=== PATIENT | female | born 1955 | race Two or more races ===

== ENCOUNTER 2025-10-27 13:02 | Inpatient (IN) | payer MEDICARE, MEDICAID, SELFPAY ==
[2025-10-27] VITALS (8 sets, daily range): BP systolic 107–160; BP diastolic 72–90; PULSE 59–170; RESP 16–100; TEMP 36–37; O2SAT 95–99
--- NOTE | 2025-10-27 13:04 | EKG_ITS ---
[facility] Test Date: 2025-10-27 Pat Name: TAYLOR JACINTO Department: Room: - Gender: Female Placement Assistant: : 1955 Requested By: Lisette Hernández Order Number: [id number] Reading MD: Lisette Hernández Measurements Intervals [place] Rate: 137 P: CO: QRS: 1 QRSD: 92 T: 161 QT: 254 QTc: 385 Interpretive Statements ATRIAL FIBRILLATION WITH RAPID VENTRICULAR RESPONSE ST DEVIATION AND MODERATE T-WAVE ABNORMALITY, CONSIDER LATERAL ISCHEMIA [-0.1+ mV T-WAVE IN I/aVL/V5/V6] Compared to ECG 04/21/2024 08:21:55 Possible ischemia now present T-wave abnormality still present /store/S0/[id number]/ecg/[id number].pdf
--- NOTE | 2025-10-27 13:07 | XR_ITS ---
EXAMINATION: AP chest single view TECHNIQUE: AP portable semiupright chest single view Date and time: October 27, 2025, 1358 hours, comparison July 08, 2024 INDICATION: Chest pain today. FINDINGS: Mild CHF Mild enlargement cardiac contour prominent vascular congestion and perihilar edema Consider superimposed pneumonia at the lung bases IMPRESSION: Mild CHF Consider superimposed pneumonia at the lung bases
[2025-10-27] MEDS: ASPIRIN 81 MG CHEW PO (13:36)
[2025-10-27 13:57] LABS: Basophils # (Auto) 0.1 Thou/mm3 (0.0-0.2); Basophils % (Auto) 1 % (0-2.5); Eosinophils # (Auto) 0.1 Thou/mm3 (0.0-0.5); Eosinophils % (Auto) 1 % (0-10); Hematocrit 29.6 % (36.0-46.0); Hemoglobin 9.7 g/dL (12.0-16.0); Immature Granulocytes Auto 0.01 Thou/mm3 (0.00-0.00); Lymphocytes # (Auto) 3.3 Thou/mm3 (1.0-4.8); Lymphocytes % (Auto) 48 % (10-50); Mean Corpuscular HGB Conc 32.8 g/dl (31.0-37.0); Mean Corpuscular Hemoglobin 33.4 pg (25.0-35.0); Mean Corpuscular Volume 102 fL (80-100); Monocytes # (Auto) 0.3 Thou/mm3 (0.0-0.8); Monocytes % (Auto) 4 % (0-12); Neutrophils # (Auto) 3.2 Thou/mm3 (1.8-7.7); Neutrophils % (Auto) 46 % (37-80); Nucleated Red Blood Cell # 0.00 Thou/mm3 (0.00-0.00); Nucleated Red Blood Cell % 0 /100 WBC (0); Platelet Count 283 Thou/mm3 (140-440); RDW Standard Deviation 57.0 fL (36.4-46.3); Red Blood Count 2.90 Miln/mm3 (4.00-5.20); White Blood Count 6.9 Thou/mm3 (3.6-11.0)
[2025-10-27 14:03] LABS: INR 1.1 (0.9-1.3); Partial Thromboplastin Time 21.8 Seconds (22.0-36.0); Prothrombin Time 11.3 Seconds (9.0-12.2)
--- NOTE | 2025-10-27 14:17 | PD.EDCHEST ---
ED Chest Pain RME/HPI General Chief Complaint: Chest Pain Stated Complaint: CHEST PAIN Time Seen by Provider: 10/27/25 13:06 Arrival date/time: 10/27/25 13:02 Limitations: no limitations RME / HPI RME / HPI narrative: 70 year old female with history of CAD s/p multiple stents atrial fibrillation, hypertension, hypothyroidism presents to the ED BIBA from home for evaluation of left sided chest pain with radiation to the left shoulder beginning 1 hour prior to arrival. States the pain has remained constant since onset and is accompanied by feeling slightly short of breath. Denies exacerbating/relieving factors and the pain is otherwise non-exertional, non-pleuritic, or associated with PO intake. Patient reports history of multiple heart attacks and pain today similar to previous heart attacks. Related Data Previous Rx's ?Medication ?Instructions ?Recorded vitamin B complex-vitamin C-folic 1 tab PO QDAY #30 tabs 03/13/22 acid 0.8 mg tablet (Nephro-Kartik) clopidogrel 75 mg tablet 75 mg PO QDAY #30 tabs 04/22/24 levothyroxine 75 mcg tablet 75 mcg PO QDAY #30 tabs 04/22/24 losartan 50 mg tablet 50 mg PO QDAY #30 tabs 04/22/24 pantoprazole 40 mg tablet,delayed 40 mg PO QDAY #30 tabs 04/22/24 release amiodarone 200 mg tablet 200 mg PO BID #60 tabs 04/23/24 apixaban 5 mg tablet 5 mg PO BID #60 tabs 04/23/24 nitroglycerin 0.4 mg sublingual 0.4 mg buccal [id number] PRN chest 04/23/24 tablet pain #9 tabs cephalexin 500 mg capsule 500 mg PO QID #28 caps 07/08/24 Allergies Allergy/AdvReac Type Severity Reaction Status Date / Time No Known Allergies Allergy Unverified 03/08/22 12:49 Review of Systems Review of Systems Systems Reviewed: All systems reviewed, normal except as documented Past Medical History Past Medical History CARDIAC: Positive Myocardial Infarction (x6) and Hypertension MUSCULOSKELETAL: Positive Arthritis and Osteoporosis OTHER HISTORY: Positive Blood Transfusions Surgical History SURGICAL: Positive Coronary Stent, Abdominal Surgery and Hysterectomy Social History SMOKING STATUS: Never smoker SUBSTANCE USE: does not use ED Exam General Limitations: Present no limitations General appearance: Present alert and in no apparent distress Head Head exam: Present atraumatic Eye Eye exam: Present normal appearance, PERRL and EOMI ENT ENT exam: Present normal exam, normal oropharynx and mucous membranes moist Neck Neck exam: Present normal inspection, full ROM and trachea midline Chest Chest inspection: Present normal inspection and symmetric chest wall rise Respiratory Respiratory exam: Present normal lung sounds bilaterally Cardiovascular Cardiovascular exam: Present regular rate, normal rhythm and normal heart sounds Abdominal Exam Abdominal exam: Present soft and normal bowel sounds Extremities Exam Extremities exam: Present normal inspection and full ROM Back Exam Back exam: Present normal inspection and full ROM Neurological Exam Neurological exam: Present alert, oriented X3 and CN II-XII intact Psychiatric Psychiatric exam: Present normal affect and normal mood Skin Skin exam: Present warm, dry, intact and normal color Course Quality Measures none Orders Category Date Time Status COVID-19 Screening Questionnaire NOW Care 10/27/25 17:53 Active Decision to Admit X1 Care 10/27/25 17:53 Completed EKG (ED ONLY) *Do not use* NOW Care 10/27/25 13:04 Completed EKG (ED ONLY) *Do not use* NOW Care 10/27/25 13:21 Completed EKG (ED Only) Stat Exams 10/27/25 13:04 Draft EKG (ED Only) Stat Exams 10/27/25 13:21 Ordered XR chest 1V Stat Exams 10/27/25 13:07 Completed B-Type Natriuretic Peptide Stat Lab 10/27/25 13:10 Completed CBC Stat Lab 10/27/25 13:10 Completed Comprehensive Metabolic Panel Stat Lab 10/27/25 13:10 Completed Partial Thromboplastin Time Stat Lab 10/27/25 13:10 Completed Prothrombin Time with INR Stat Lab 10/27/25 13:10 Completed Troponin I Routine Lab 10/27/25 16:50 Completed Troponin I Stat Lab 10/27/25 13:10 Completed Urinalysis, C/S if Indicated Stat Lab 10/27/25 13:07 Ordered Aspirin Chew Med 10/27/25 13:25 Discontinued 81 mg PO X1 ONE Heparin Inj Med 10/27/25 13:25 Discontinued 5,000 unit IVP X1 ONE Metoprolol Tartrate Inj [Lopressor Inj] Med 10/27/25 14:00 Active 5 mg IVP Q8HR Metoprolol Tartrate Inj [Lopressor Inj] Med 10/27/25 13:22 Discontinued 5 mg IVP X1 ONE Vital Signs Vital signs: Vital Signs Pulse Rate 134 H 10/27/25 13:05 Respiratory Rate 16 10/27/25 13:05 Blood Pressure 134/90 H 10/27/25 13:05 Chest Pain MDM Narrative MDM Narrative:: Rosie Ferreira am scribing for and in the presence of Dr. Sanders. 70 year old female with history of [place] x6, CAD s/p multiple stents atrial fibrillation, hypertension, hypothyroidism presents to the ED BIBA from home for evaluation of left sided chest pain with radiation to the left shoulder beginning 1 hour prior to arrival. States the pain has remained constant since onset and is accompanied by feeling slightly short of breath. EKG shows elevation in aVR with reciprocal changes to the anterior and lateral leads, posterior ekg leads show now elevation in v6. Plan: Serial troponin w/ repeat performed in 2 hours from initial Cardiology consultation Slow down atrial fibrillation with Metropolol Heparin IV, Aspirin, Metropolol Initial troponin was within normal limits. Delta trop is elevated at 0.109. I spoke with hospitalist team for admission. I spoke with game breeding farm manager Dr. Diaz. He recommends IV heparin and Amiodarone. Agrees to consult. Patient data External records reviewed:: [facility] previous records and EMS form Clinical information provided by:: patient and EMS Social determinants that could affect healthcare access:: none Patient has the following chronic illnesses:: [place] x6, CAD s/p multiple stents atrial fibrillation, hypertension, hypothyroidism How is presenting disease/condition affected by chronic disease/condition?: exacerbated by Evaluation data The following diagnostics were reviewed and interpreted by me:: lab results, radiology exam(s) and EKG tracing(s) (as noted above ) Lab and/or radiology exams considered but not ordered:: None Interpretation Summary: Ordering Physician: Phylicia Amezquita Date of Service: 10/27/25 Procedure(s): XR chest 1V Accession Number(s): [id number] cc: Phylicia Amezquita; Jose Jamil MD~ EXAMINATION: AP chest single view TECHNIQUE: AP portable semiupright chest single view Date and time: October 27, 2025, 1358 hours, comparison July 08, 2024 INDICATION: Chest pain today. FINDINGS: Mild CHF Mild enlargement cardiac contour prominent vascular congestion and perihilar edema Consider superimposed pneumonia at the lung bases IMPRESSION: Mild CHF Consider superimposed pneumonia at the lung bases Dictated By: Jose Jamil MD Signed By: <Electronically signed by Jose Jamil MD in OV> 10/27/25 1548 Medications / Prescriptions Medications or Prescriptions considered but not ordered:: None Medication administrations:: Medication Administration History Metoprolol Tartrate (Metoprolol Tartrate Inj 1 Mg/Ml Vial 5 Ml) 5 mg IVP Q8HR TIFFANY Stop: 11/26/25 13:59 Last Admin: 10/27/25 13:57 Dose: Not Given Documented By: EF Non-Admin Reason: Wrong Time Discontinued Medications Aspirin (Aspirin 81 Mg Chew) 81 mg PO X1 ONE Stop: 10/27/25 13:26 Last Admin: 10/27/25 13:36 Dose: 81 mg Documented By: EF Heparin Sodium (Porcine) (Heparin Sod Inj 5000 Unit/Ml Vial) 5,000 unit IVP X1 ONE Stop: 10/27/25 13:26 Last Admin: 10/27/25 14:48 Dose: 5,000 unit Documented By: EF Co-signed By: BD Metoprolol Tartrate (Metoprolol Tartrate Inj 1 Mg/Ml Vial 5 Ml) 5 mg IVP X1 ONE Stop: 10/27/25 13:23 Last Admin: 10/27/25 13:36 Dose: 5 mg Documented By: EF See above Consultations Consultation(s) initiated? (list below): Yes Consultation #1 (Physician, Specialty, Details): See MDM Diagnosis Most likely diagnosis given after review of the tests above:: Unstable angina Rapid atrial fibrillation Admission Indicated Admission indicated?: indicated Admission Request Was there a request for admission?: Yes Admission Attestation Admission request attestation: Discussed case with [] from Hospitalist service regarding admission. Discussed patients ED course, exam findings, labs, and radiology results. The Hospitalist [agrees,declines] to accept the patient for admission. Disposition Plan Disposition Plan: Admit Discharge Plan Plan Patient Disposition: Admit Acute Care w/in Hospital Prescriptions/Referrals Prescriptions/Med Rec: No Action Nephro-Kartik 0.8 mg tablet 1 tab PO QDAY Qty: 30 0RF clopidogrel 75 mg Tablet 75 mg PO QDAY Qty: 30 0RF pantoprazole 40 mg tablet,delayed release (DR/EC) 40 mg PO QDAY Qty: 30 0RF levothyroxine 75 mcg tablet 75 mcg PO QDAY Qty: 30 0RF losartan 50 mg tablet 50 mg PO QDAY Qty: 30 0RF amiodarone 200 mg tablet 200 mg PO BID Qty: 60 0RF apixaban 5 mg tablet 5 mg PO BID Qty: 60 0RF nitroglycerin 0.4 mg tablet, sublingual 0.4 mg buccal [id number] PRN (Reason: chest pain) Qty: 9 0RF cephalexin 500 mg capsule 500 mg PO QID Qty: 28 0RF Referrals: Laura Foss FNP [Primary Care Provider] - In 1 week Problem List Clinical Impression: Unstable angina, Rapid atrial fibrillation Patient/Caregiver Discharge Instructions Print Language: Lithuanian Stand Alone Forms: [employer] Award Info., Patient Portal Info Letter
[2025-10-27 14:18] LABS: Alanine Aminotransferase < 7 U/L (10-49); Albumin, Serum 5.0 gm/dL (3.4-4.8); Albumin/Globulin Ratio 1.9 (1.2-2.2); Alkaline Phosphatase 58 U/L (46-116); Anion Gap 13 (7-16); Aspartate Amino Transferase 22 U/L (0-34); BUN/Creatinine Ratio 19 Ratio (12-20); Bilirubin,Total 0.3 mg/dL (0.3-1.2); Blood Urea Nitrogen 27 mg/dL (9-23); Calcium 9.4 mg/dL (8.3-10.6); Calcium (Corrected) 9.4 mg/dL (8.5-10.1); Carbon Dioxide 23.3 mMol/L (20.0-31.0); Chloride 103 mMol/L (98-107); Creatinine (Component) 1.4 mg/dL (0.6-1.3); Globulin 2.7 gm/dL (2.3-3.5); Glucose 143 mg/dL (74-106); Osmolality,Calculated 284 (275-295); Potassium 4.4 mMol/L (3.4-5.1); Sodium 139 mMol/L (136-145); Total Protein 7.7 gm/dL (5.7-8.2); Troponin I < 0.020 ng/mL (0.0-0.045); eGFR 40 See Note
[2025-10-27 14:42] LABS: B-Type Natriuretic Peptide 328 pg/mL (0-100)
[2025-10-27] MEDS: HEPARIN SOD INJ 5000 UNIT/ML VIAL IVP (14:48)
[2025-10-27 17:47] LABS: Troponin I 0.109 ng/mL (0.0-0.045)
--- NOTE | 2025-10-27 18:26 | ECHO_ITS ---
Patient Info Name: Anthony Geller Age: 70 years : 1955 Gender: Female Ht: 160 cm Wt: 60 kg BSA: 1.65 m2 BP: 133 / 62 mmHg HR: 61 bpm Exam Date: 10/29/2025 11:41 AM Admit Date: 10/27/2025 Site: [facility] Room Number: [id number] Patient Status: I Exam Type: CA echo doppler complete Loin Trimmer: Meera Cooper Ordering Physician: Curly Lyn Study Info Indications Atrial fibrillation NSTEMI - Primary Location: S2NX Left Ventricular Outflow Tract Name Value Normal LVOT 2D LVOT Diameter 1.6 cm LVOT Doppler LVOT Peak Velocity 68 cm/s LVOT Mean Gradient 1 mmHg LVOT VTI 17 cm LVOT VTI/AV VTI Ratio 0.7 LVOT Stroke Volume 34 ml Pulmonic Valve Name Value Normal PV Doppler PV Peak Velocity 62 cm/s PV Regurgitation Doppler WV Peak End Diastolic Velocity 132 cm/s Mitral Valve Name Value Normal MV Doppler MV Mean Gradient 95 mmHg MV Decel Merrick 670 cm/s2 MV PHT 44 ms MV Area (PHT) 5.0 cm2 4.0-5.0 MV Area (Cont Eq VTI) 0.1 cm2 MV Diastolic Function MV E Peak Velocity 101 cm/s MV A Peak Velocity 29 cm/s MV E/A 3.5 MV Annular TDI MV Septal e' Velocity 10.1 cm/s MV E/e' (Septal) 10.0 MV Lateral e' Velocity 10.4 cm/s MV E/e' (Lateral) 9.7 MV e' Average 10.25 cm/s MV E/e' (Average) 9.9 Tricuspid Valve Name Value Normal TV Regurgitation Doppler TR Peak Velocity 288 cm/s Estimated PAP/RSVP RA Pressure 8 mmHg <=5 PA Systolic Pressure 41 mmHg <36 RV Systolic Pressure 41 mmHg <36 TV Annular TDI TV Lateral Gloria s' Velocity 10.5 cm/s >=9.5 Aortic Valve Name Value Normal AV Doppler AV Peak Velocity 90 cm/s AV Mean Gradient 2 mmHg AV VTI 24 cm AV Area (Cont Eq VTI) 1.5 cm2 >=3.0 AV Area (Cont Eq Star) 1.5 cm2 AV DI (Star) 0.76 AV Regurgitation 2D LVOT Area 2.0 cm2 AV Regurgitation Doppler AR Decel Merrick 103 cm/s2 AR PHT 456 ms Ventricles Name Value Normal LV Dimensions 2D/MM IVS Diastolic Thickness (2D) 0.9 cm 0.6-0.9 LVID Diastole (2D) 4.5 cm 3.8-5.2 LVIW Diastolic Thickness (2D) 0.7 cm 0.6-0.9 LVID Systole (2D) 3.5 cm 2.2-3.5 LVOT Diameter 1.6 cm LV Mass (2D Cubed) 113.63 g 67.00-162.00 LV Mass Index (2D Cubed) 69 g/m2 43-95 Relative Wall Thickness (2D) 0.31 <=0.42 IVS/LVIW Diastolic Thickness (2D) 1.29 0.00-1.50 LV Fractional Shortening/Ejection Fraction 2D/MM LV Fractional Shortening (2D) 22 % 27-45 LV EF (2D Teichholz) 45 % RV Dimensions 2D/MM TV Lateral Gloria s' Velocity 10.5 cm/s >=9.5 Atria Name Value Normal LA Dimensions LA Volume (4C A-L) 70 ml LA Volume (BP A-L) 82 ml Left Ventricle Left ventricular chamber dimension is normal. Left ventricular systolic function is normal with visually estimated ejection fraction of 60-65%. There is moderate concentric hypertrophy noted in the left ventricle. Left ventricular segmental wall motion is normal. There is indeterminate diastolic function in the left ventricle. Right Ventricle Right ventricular chamber dimension is normal. Right ventricular systolic function is normal. Left Atrium Left atrial chamber dimension is severely enlarged. Right Atrium Right atrial chamber dimension is normal. Aortic Valve The aortic valve is trileaflet. There is no aortic valve sclerosis. There is no aortic valve stenosis with a peak velocity of 90 cm/s, mean gradient of 2 mmHg, and aortic valve area of 1.5 cm2. There is mild aortic valve regurgitation. Pulmonic Valve The pulmonic valve is normal. There is no pulmonic valve stenosis. There is mild pulmonic regurgitation. Mitral Valve The mitral valve has normal leaflets. There is severe mitral valve stenosis. There is mild to moderate mitral valve regurgitation. Tricuspid Valve The tricuspid valve leaflets are normal. There is no tricuspid valve stenosis. There is moderate tricuspid valve regurgitation. Pulmonary hypertension, estimated pulmonary arterial systolic pressure is 41 mmHg and systemic blood pressure of 133 mmHg in systole. Pericardium/Pleural The pericardium appears normal. There is no pericardial effusion. No pleural effusion visualized. Inferior Vena Cava Not well visualized inferior vena cava with >50% collapse upon inspiration consistent with normal right atrial pressure, 8 mmHg. Aorta The aortic measurements are indexed to age and body surface area. The aortic root at the sinus of Valsalva is not well visualized. The prox ascending aorta is not well visualized. Summary 1. Left ventricle size is normal and systolic function is normal. Estimated ejection fraction is 60-65%. There is indeterminate diastolic function. 2. Right ventricle chamber size is normal and systolic function is normal. Estimated RVSP mildly elevated at 41 mmHg. 3. There is mild aortic valve regurgitation. 4. There is mild to moderate mitral valve regurgitation. 5. There is moderate tricuspid valve regurgitation. 6. mild pulmonic valve regurgitation. 7. The left atrium is severely enlarged. The right atrium is normal. Report Signatures Finalized by Jorge Luis Diaz on 10/30/2025 01:53 AM
[2025-10-27 19:01] LABS: Collection Type, Urine Clean Catch
--- NOTE | 2025-10-27 19:15 | ESCONSULT_ITS ---
HPI Data of Consult Requesting Physician: Curly Lyn MD Admitting Provider: Curly Lyn MD Attending Provider: Curly Lyn MD Primary Care Provider: THA King Consult Narrative Reason for consult: A Fib with RVR History of present illness: 70-year-old female with past medical history of CAD status post 6 stents (2 LAD,2 RCA ,1 -Lcx and 1-OM1 on 04/22), paroxysmal atrial fibrillation diagnosed in 2021, Hypothyroidism, history of arthritis, chronic back pain, scented to ED with complaints of chest pain and palpitations. She recently had hospitalization at [facility] for atrial fibrillation with rapid ventricular response. She complains of chest pain pressure-like sensation around central chest which is squeezing type in quality, partially relieved with nitroglycerin starting around 11:00 associated with palpitations, dizziness, weakness. She said today when she went to bathroom and tried to exert she felt chest palpitations. Described chest pain occurring in episodes associated with palpitations and off in nature. She denies any loss of consciousness, blackouts, shortness of breath, difficulty breathing, leg swelling, abdominal distention. She states that she is feeling weak and have baseline chondritis pain over the left chest going on for a while. ED visit vitals blood pressure 134/90, pulse rate 130, respiratory 16, temperature 96.8. Labs significant for hemoglobin 9.7, hematocrit 29.6, BUN 27, creatinine 1.4, eGFR 40, troponin 0.109, BNP 328 ECG showing atrial fibrillation with rapid ventricular response, overall ST segment depression, ST elevation in aVR indicating Multi vessel disease. Current medications she is on Plavix 75 mg, atorvastatin 80 mg, amiodarone 200 mg twice daily, Eliquis 5 mg twice daily, levothyroxine 50 mcg, metoprolol succinate 25 mg twice daily, Tylenol as needed Past medical history as stated above. Past surgical history appendectomy as well as 6 ectomy and recent PCI at [facility] 3 weeks ago with 2 out of 4 stents-will need to obtain records Social history: Lives with the son here in [place] from [place] [facility]. Patient denies any Smoking alcohol or drug abuse. Baseline patient is ADL and IADL independent except for chronic back pain and osteoarthritis as per the son who is at the bedside. Allergies: NKDA Travel history: None recently Family history significant for heart disease in the family and hypertension cc:: cc: Curly Lyn MD Review of Systems Review of Systems Systems Reviewed: All systems reviewed, normal except as documented Exam Vital Signs Temp Pulse Resp BP Pulse Ox O2 Del Method O2 Flow Rate 98.6 F 73 18 160/87 H 98 Nasal Cannula 3 10/27/25 17:20 10/27/25 18:29 10/27/25 17:20 10/27/25 17:20 10/27/25 17:20 10/27/25 17:20 10/27/25 17:20 Narrative Exam GENERAL: NAD, AAOx3 HEENT: Moist mucosa. Eyes open, symmetrical, & clear CARDIO: Rapid regular rhythm Noted. No Murmurs. PULM: No noted coughing/dyspnea CTA B/L, no R/W/R GI: Abdomen soft, nondistended, non Tender. SKIN/MSK/EXT: No wounds/rashes/amputations, no pain on palpation.No Edema. Pedal pulses present B/L NEURO: AAOx3, no focal neuro deficits, able to move all 4 extremities Results Labs 10/28/25 03:35 10/28/25 03:35 Labs: Short CBC 10/27/25 Range/Units 13:10 WBC 6.9 (3.6-11.0) Thou/mm3 Hgb 9.7 L (12.0-16.0) g/dL Hct 29.6 L (36.0-46.0) % Plt Count 283 (140-440) Thou/mm3 BMP 10/27/25 13:10 Sodium 139 Potassium 4.4 Chloride 103 Carbon Dioxide 23.3 BUN 27 H Creatinine 1.4 H Glucose 143 H Calcium 9.4 Cardiac Enzymes 10/27/25 10/27/25 Range/Units 13:10 16:50 Troponin I < 0.020 0.109 H* (0.0-0.045) ng/mL Liver Function 10/27/25 Range/Units 13:10 Total Bilirubin 0.3 (0.3-1.2) mg/dL AST 22 (0-34) U/L ALT < 7 L (10-49) U/L Alkaline Phosphatase 58 (46-116) U/L Albumin 5.0 H (3.4-4.8) gm/dL Quality Measures Quality Measures none Advance care planning discussed with:: patient Medications Home Medications and Allergies Home Medications ?Medication ?Instructions ?Recorded ?Confirmed ?Type apixaban 2.5 mg tablet (Eliquis) 2.5 mg PO Q12H 10/28/25 History atorvastatin 80 mg tablet 80 mg PO HS 10/28/25 5 History levothyroxine 50 mcg tablet 50 mcg PO .am 10/28/25 History losartan 25 mg tablet 25 mg PO DAILY 10/28/2510/01 History metoprolol tartrate 25 mg tablet 25 mg PO Q12H 5 10/28/25 History multivitamin 1 tab PO DAILY 10/28/2510/01 History ranolazine 500 mg tablet,extended 500 mg PO Q12H 10/2810/28/25 History release,12 hr Allergies Allergy/AdvReac Type Severity Reaction Status Date / Time No Known Allergies Allergy Unverified 03/08/22 12:49 Visit Medications Acetaminophen (Acetaminophen 325 Mg Tablet) 650 mg PO Q6H PRN PRN Reason: Fever >100.4 or Pain 1-3 Stop: 11/26/25 18:20 Atorvastatin Calcium (Atorvastatin Calcium 20 Mg Tablet) 80 mg PO HS ON LICENSE OF [facility] Stop: 11/26/25 20:59 Clopidogrel Bisulfate (Clopidogrel Bisulfate 75 Mg Tablet) 75 mg PO QDAY ON LICENSE OF [facility] Stop: 11/27/25 08:59 Heparin Sodium/Dextrose (Heparin In D5w Ivpb) 25,000 unit in 250 mls @ 7.272 mls/hr IV .Q24H ON LICENSE OF [facility]; Protocol Stop: 11/10/25 18:44 Amiodarone HCl/Dextrose (Nexterone Ivpb) 360 mg in 200 mls @ 33.333 mls/hr IV .Q6H ONE Stop: 10/28/25 00:41 Last Admin: 10/27/25 19:02 Dose: Not Given Amiodarone HCl/Dextrose (Nexterone Ivpb) 360 mg in 200 mls @ 16.667 mls/hr IV .Q12H ON LICENSE OF [facility] Stop: 10/29/25 00:40 Metoprolol Succinate (Metoprolol Succinate Xl 25 Mg Tabcr) 25 mg PO QDAY ON LICENSE OF [facility] Stop: 11/26/25 18:44 Metoprolol Tartrate (Metoprolol Tartrate Inj 1 Mg/Ml Vial 5 Ml) 5 mg IVP Q8HR TIFFANY Stop: 11/26/25 13:59 Last Admin: 10/27/25 13:57 Dose: Not Given Ondansetron HCl (Ondansetron Inj 2 Mg/Ml Inj 2 Ml) 4 mg IVP Q6H PRN; Protocol PRN Reason: NAUSEA OR VOMITING Stop: 11/26/25 18:20 Discontinued Medications Aspirin (Aspirin 81 Mg Chew) 81 mg PO X1 ONE Stop: 10/27/25 13:26 Last Admin: 10/27/25 13:36 Dose: 81 mg Heparin Sodium (Porcine) (Heparin Sod Inj 5000 Unit/Ml Vial) 5,000 unit IVP X1 ONE Stop: 10/27/25 13:26 Last Admin: 10/27/25 14:48 Dose: 5,000 unit Heparin Sodium (Porcine) (Heparin Sod Inj 5000 Unit/Ml Vial) 3,650 unit 60 unit/kg (3650 unit) IV X1 ONE; Protocol Stop: 10/27/25 18:32 Amiodarone HCl/Dextrose (Nexterone Ivpb) 150 mg in 100 mls @ 600 mls/hr IV .Q10M ONE Stop: 10/27/25 18:42 Last Admin: 10/27/25 19:02 Dose: Not Given Metoprolol Tartrate (Metoprolol Tartrate Inj 1 Mg/Ml Vial 5 Ml) 5 mg IVP X1 ONE Stop: 10/27/25 13:23 Last Admin: 10/27/25 13:36 Dose: 5 mg Morphine Sulfate (Morphine Sulf Inj 4 Mg/Ml Vial) 0.5 mg IVP X1 ONE Stop: 10/27/25 18:51 Assessment & Plan Plan 70-year-old female with past medical history of CAD status post 6 stents (2 LAD,2 RCA ,1 -Lcx and 1-OM1 on 04/22), paroxysmal atrial fibrillation diagnosed in 2021, Hypothyroidism, history of arthritis, chronic back pain, scented to ED with complaints of chest pain and palpitations. Cardiology was consulted for A- fib with RVR. # Paroxysmal atrial fibrillation with rapid ventricular response # NSTEMI type II # CAD status post PCI with 6 stents in LAD, RCA, LCx and OM1 Patient complained of chest pain, palpitations starting today. He had a history of atrial fibrillation and on Eliquis 5 mg twice daily. EKG in ED shows atrial fibrillation with rapid ventricular response, ST depression in overall leads, ST elevation in aVR-significant multivessel disease She had extensive history of coronary artery disease and multiple stents placed and uses nitroglycerin at home whenever she gets chest pain. Troponin is 0.109, BNP 328. Troponin elevation is probably due to demand ischemia Recommendations from cardiology ?Start on heparin drip and can later transition into oral anticoagulants ?Continue other home amiodarone 200 mg twice daily. ?Plan for an transthoracic echo. ?Trend troponins and EKG ?Aspirin 325 mg. ?Continue Plavix. ?Goal potassium is above 4 and magnesium above 2. ?Telemetry monitoring. # Hypertension. ?Continue on home medication metoprolol XL 25 mg twice daily . ?Continue to monitor for worsening signs and symptoms of hypertension. # Hyperlipidemia ?Continue her home medication atorvastatin 80 mg. ?Requires cholesterol panel # Hypothyroidism Continue her home medication levothyroxine ?Needs thyroid profile. Rest of conditions -manage per primary team Discussed the case with Dr.Anumandla Jackeline Satrk MD PGY1. Attending Provider Attestation/Addendum I have personally seen and examined the patient separately on the above date of service and discussed the plan of care with the resident. I reviewed the resident Dr. Jackeline Stark consultation progress note and agree with the resident findings and plan in the note above and have also edited the documentation to reflect my findings and plan. Patient well-known to me and follows with me in the office. Patient with significant CAD history with 16 placement 2 in the LAD, 2 in the RCA and 2 in the LCx and OM1 bifurcation by me during February and March 2024. Patient also has paroxysmal atrial fibrillation and is on anticoagulation and she is on Eliquis and Plavix. Patient generally is compliant with her medication but at times when she does not feel well she does not take her medication regularly as per the family and also not very compliant with her office visits 2. She came in as she had palpitations along with chest tightness as well as chest pressure while she was in the restroom and also had weakness & had to help her and bring her to the emergency department for further evaluation. She did have atrial fibrillation with RVR on presentation which improved with amiodarone and recommend to continue the same to complete the drip and eventually start the patient on amiodarone 200 mg twice daily along with metoprolol and she was only on amiodarone 200 mg once daily previously. Hold apixaban for now and start the patient on heparin drip in view of possible procedures. Will check echo to rule out any kind of regional wall motion abnormalities, check LV function RV function and also diastolic function. Initial EKG with atrial fibrillation with RVR showed significant ST depressions in multiple leads along with ST elevation in the aVR leads concerning for left main disease or less multivessel disease. Discussed with the patient and plan to [facility] on Thursday. Patient does complain of some constipation which she has been suffering for the past few days and recommend to give her magnesium citrate along with Colace and senna. Management of rest of the medical conditions as per primary team and other consultants. Thank you for the consult and allowing me to participate in the care of the patient. Cardiology will continue to follow. Jorge Luis Diaz M.D. Interventional Cardiology
[2025-10-27] MEDS: HEPARIN SOD INJ 5000 UNIT/ML VIAL 3650 UNIT IV (19:16)
[2025-10-27] MEDS: Heparin/D5w 25K 250 ML Ivpb 25,000 UNIT/250 ML BAG 7.272 UNIT IV (19:17)
[2025-10-27 19:25] LABS: Bilirubin,Urine Negative (Negative); Blood,Urine Negative (Negative); Clarity,Urine Clear (Clear/Hazy); Color,Urine Lt-Yellow (Lt Yel-Yel); Culture Indicated,Urine Not Indicated; Glucose, Urine Negative (Negative); Ketones,Urine Negative (Negative); Leukocyte Esterase,Urine Negative (Negative); Nitrite,Urine Negative (Negative); PH,Urine 6.5 (5.0-7.0); Protein,Urine Trace (Neg - Trace); RBC,Urine 8 /hpf (0-3); Specific Gravity,Urine 1.013 (1.001-1.035); Squamous Epithelial Cell,Urine < 1 /hpf (0-5); Urobilinogen,Urine Negative mg/dL (0.0-1.0); WBC,Urine 1 /hpf (0-5)
[2025-10-27] MEDS: ATORVASTATIN CALCIUM 20 MG TABLET 80 MG PO (21:13)
--- NOTE | 2025-10-27 21:17 | PC.NURSE ---
joanie phone number cell - [phone] [place] - [phone]
--- NOTE | 2025-10-27 21:47 | ESHP_ITS ---
Documentation for date of: 10/27/25 [facility] History of Present Illness Chief complaint: Chest pain x 30 minutes History of present illness: Patient is a 70-year-old female with past medical history of CAD with multivessel disease s/p 6 stents, hypertension, hypothyroidism, afib on Eliquis who presented to the ED on 10/27/2025 with episode of central substernal chest pain lasting 30 minutes at home when she was using the bathroom. Patient speaks Swedish/Brent. Son is at bedside to translate. Patient reports associated feeling of dizziness and palpitations however no other symptoms at that time. Currently the chest pain is resolved since coming to the ED however she does feel some palpitations. Son reports patient had seen her kayaking instructor Dr. Diaz yesterday and dose of Eliquis was adjusted from 5 to 2.5 mg. Patient also takes Plavix. Patient lives at home with son and requires assistance in ADLs such as bathing and dressing. Patient additionally reports constipation and requests enema. ED Course: -Initial vitals were BP 134/90 and HR 134 with afib with RvR -Labs significant for anemia with Hgb 9.7, initial troponin negative but repeat elevated to 0.109 -EKG showed afib with RvR at a rate of 137 -In the ED, patient was given metoprolol tartrate 5 mg IV x1 and converted to normal sinus rhythm, and aspirin 81 mg -Patient was admitted for NSTEMI type 1 versus type 2 Review of Systems Review of systems otherwise negative except what is mentioned above. Past Medical History Past Medical History Comments PMH COMMENT: Past Medical History: CAD with multivessel disease s/p 6 stents, hypertension, hypothyroidism, afib on Eliquis Family History: Significant for cardiac disease in brother Surgical History: Hysterectomy Social History: Denies history of smoking, denies current alcohol use, denies recreational drug use. Lives with son, requires assistance with some ADLs such as dressing and bathing Current Medications: Including Eliquis 2.5 mg BID for afib and Plavix for CAD, pending med rec Allergies: No known drug allergies Exam Vital Signs Temp Pulse Resp BP Pulse Ox O2 Del Method O2 Flow Rate 97.5 F 67 20 132/72 H 97 Room Air 3 10/27/25 19:21 10/27/25 19:21 10/27/25 19:21 10/27/25 19:21 10/27/25 19:21 10/27/25 19:21 10/27/25 17:20 Narrative Exam Physical Exam General: Awake and in no acute distress. Conversational and non-toxic appearing. HEENT: Normocephalic, atraumatic, mucous membranes moist. Heart: Regular rate and rhythm, normal S1 and S2, no murmurs. Lungs: Clear to auscultation with no wheezing or crackles. Abdomen: Soft, nondistended, nontender, positive bowel sounds. ?No guarding or rebound tenderness. Neurologic: Alert and oriented x3, no gross neurological deficit, and patient able to move all 4 extremities. Extremities: No edema. Skin: No rash or ecchymoses. Results: Labs 10/28/25 03:35 10/28/25 03:35 Labs: Short CBC 10/27/25 Range/Units 13:10 WBC 6.9 (3.6-11.0) Thou/mm3 Hgb 9.7 L (12.0-16.0) g/dL Hct 29.6 L (36.0-46.0) % Plt Count 283 (140-440) Thou/mm3 BMP 10/27/25 13:10 Sodium 139 Potassium 4.4 Chloride 103 Carbon Dioxide 23.3 BUN 27 H Creatinine 1.4 H Glucose 143 H Calcium 9.4 Cardiac Enzymes 10/27/25 10/27/25 Range/Units 13:10 16:50 Troponin I < 0.020 0.109 H* (0.0-0.045) ng/mL Liver Function 10/27/25 Range/Units 13:10 Total Bilirubin 0.3 (0.3-1.2) mg/dL AST 22 (0-34) U/L ALT < 7 L (10-49) U/L Alkaline Phosphatase 58 (46-116) U/L Albumin 5.0 H (3.4-4.8) gm/dL Urine 10/27/25 Range/Units 18:42 Urine Color Lt-Yellow (Lt Yel-Yel) Urine Clarity Clear (Clear/Hazy) Urine pH 6.5 (5.0-7.0) Ur Specific [place] 1.013 (1.001-1.035) Urine Protein Trace (Neg - Trace) Urine Glucose (UA) Negative (Negative) Quality Measures Quality Measures none Advance care planning discussed with:: patient and child Medications Home Medications and Allergies Home Medications ?Medication ?Instructions ?Recorded ?Confirmed ?Type apixaban 2.5 mg tablet (Eliquis) 2.5 mg PO Q12H 10/28/25 History atorvastatin 80 mg tablet 80 mg PO HS 10/28/25 5 History levothyroxine 50 mcg tablet 50 mcg PO .am 10/28/25 History losartan 25 mg tablet 25 mg PO DAILY 10/28/2510/01 History metoprolol tartrate 25 mg tablet 25 mg PO Q12H 5 10/28/25 History multivitamin 1 tab PO DAILY 10/28/2510/01 History ranolazine 500 mg tablet,extended 500 mg PO Q12H 10/2810/28/25 History release,12 hr Allergies Allergy/AdvReac Type Severity Reaction Status Date / Time No Known Allergies Allergy Unverified 03/08/22 12:49 Visit Medications Acetaminophen (Acetaminophen 325 Mg Tablet) 650 mg PO Q6H PRN PRN Reason: Fever >100.4 or Pain 1-3 Stop: 11/26/25 18:20 Atorvastatin Calcium (Atorvastatin Calcium 20 Mg Tablet) 80 mg PO HS REPLACED BY [facility] Stop: 11/26/25 20:59 Last Admin: 10/27/25 21:13 Dose: 80 mg Clopidogrel Bisulfate (Clopidogrel Bisulfate 75 Mg Tablet) 75 mg PO QDAY REPLACED BY [facility] Stop: 11/27/25 08:59 Heparin Sodium/Dextrose (Heparin In D5w Ivpb) 25,000 unit in 250 mls @ 7.272 mls/hr IV .Q24H REPLACED BY [facility]; Protocol Stop: 11/10/25 18:44 Last Admin: 10/27/25 19:17 Dose: 12 units/kg/hr, 7.272 mls/hr Amiodarone HCl/Dextrose (Nexterone Ivpb) 360 mg in 200 mls @ 33.333 mls/hr IV .Q6H ONE Stop: 10/28/25 00:41 Last Admin: 10/27/25 19:02 Dose: Not Given Amiodarone HCl/Dextrose (Nexterone Ivpb) 360 mg in 200 mls @ 16.667 mls/hr IV .Q12H REPLACED BY [facility] Stop: 10/29/25 00:40 Metoprolol Succinate (Metoprolol Succinate Xl 25 Mg Tabcr) 25 mg PO QDAY TIFFANY Stop: 11/26/25 18:44 Last Admin: 10/27/25 19:52 Dose: Not Given Metoprolol Tartrate (Metoprolol Tartrate Inj 1 Mg/Ml Vial 5 Ml) 5 mg IVP Q8HR TIFFANY Stop: 11/26/25 13:59 Last Admin: 10/27/25 13:57 Dose: Not Given Ondansetron HCl (Ondansetron Inj 2 Mg/Ml Inj 2 Ml) 4 mg IVP Q6H PRN; Protocol PRN Reason: NAUSEA OR VOMITING Stop: 11/26/25 18:20 Discontinued Medications Aspirin (Aspirin 81 Mg Chew) 81 mg PO X1 ONE Stop: 10/27/25 13:26 Last Admin: 10/27/25 13:36 Dose: 81 mg Heparin Sodium (Porcine) (Heparin Sod Inj 5000 Unit/Ml Vial) 5,000 unit IVP X1 ONE Stop: 10/27/25 13:26 Last Admin: 10/27/25 14:48 Dose: 5,000 unit Heparin Sodium (Porcine) (Heparin Sod Inj 5000 Unit/Ml Vial) 3,650 unit 60 unit/kg (3650 unit) IV X1 ONE; Protocol Stop: 10/27/25 18:32 Last Admin: 10/27/25 19:16 Dose: 3,650 unit Amiodarone HCl/Dextrose (Nexterone Ivpb) 150 mg in 100 mls @ 600 mls/hr IV .Q10M ONE Stop: 10/27/25 18:42 Last Admin: 10/27/25 19:02 Dose: Not Given Metoprolol Tartrate (Metoprolol Tartrate Inj 1 Mg/Ml Vial 5 Ml) 5 mg IVP X1 ONE Stop: 10/27/25 13:23 Last Admin: 10/27/25 13:36 Dose: 5 mg Morphine Sulfate (Morphine Sulf Inj 4 Mg/Ml Vial) 0.5 mg IVP X1 ONE Stop: 10/27/25 18:51 Last Admin: 10/27/25 19:20 Dose: Not Given Assessment & Plan Plan 70-year-old female with past medical history of 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 Patient with high risk history given multivessel disease and not a CABG candidate. Troponin elevated from <0.020 to 0.109, may be type 2 demand in the setting of afib with RvR, however will continue to trend. -Admitted to telemetry -Cardiology consulted and following -Started heparin drip as recommended by cardiology -Continue home Plavix 75 mg qday -TTE ordered -Trend troponin #Paroxysmal afib with RvR Patient arrived to ED in afib with RvR and converted after given metoprolol tartrate IV 5 mg x1. Patient has known history and is on Eliquis 2.5 mg BID, recently reduced by kayaking instructor. -Started amiodarone drip as recommended by cardiology -Resume home metoprolol succinate 25 mg qday -Maintain potassium >4.0 and magnesium >2.0 #History of hypertension -Continue home medication when reconciled #History of hypothyroidism -TSH -Continue home levothyroxine #History of hyperlipidemia -Lipid panel -Continue home atorvastatin 80 mg HS #Anemia of chronic disease Patient hemoglobin appears at baseline. -Maintain Hgb >8.0 #Constipation Patient reports constipation -Ordered mineral oil enema DVT prophylaxis: Heparin drip GI prophylaxis: Not indicated Diet: Cardiac Ayala: None Lines: Peripheral IV Antibiotics: None CODE STATUS: FULL Reason for hospitalization: NSTEMI Patient plan of care was discussed with the attending physician, Dr. Lyn. Kathryn Turk, PGY-3 Attending Provider Attestation/Addendum I have examined the patient, reviewed labs and imaging findings, discussed the case with the resident(s), and reviewed entered orders. I agree with the plan of care as outlined in this note, with these additional summaries/recommendations: After examination of the patient and review of the clinical data, I feel that this patient needs admission to the hospital for further treatment and evaluation. Patient is a 70-year-old female with a medical history of CAD s/p multiple stents (6), primary hypertension, hypothyroidism, chronic atrial fibrillation, dyslipidemia, and osteoarthritis presents to [facility] emergency department on 10/27/2025 with chief complaint of substernal chest pain. Patient seen at bedside. She reports she was using the bathroom and developed substernal left-sided chest pain unrelieved with rest. She reports the symptoms were similar to when she had a heart attack last time and thus she came to the emergency room for evaluation. In the emergency room patient was found to be in atrial fibrillation with rapid ventricular response with rates into the 150s. Patient received multiple IV pushes in the emergency room with improvement in rate although appears paroxysmal with intermittent episodes of RVR. Start amiodarone gtt. and heparin gtt. Target APTT of 60 to 80 seconds. Consult cardiology, recommendations appreciated. Order echocardiogram. Monitor electrolytes. Will transition to oral when able. Patient was also found to have elevated troponin in the emergency room in the setting of chest pain. EKG shows some reciprocal changes to the anterior and lateral leads and ST change in V6. Most likely NSTEMI type II versus less likely NSTEMI type I. Nonetheless patient will be covered with heparin gtt. for RVR and NSTEMI. Resume home Plavix and high intensity statin. Order vascular risk factors. Continue home ranolazine for angina and can give small dose of IV morphine if still not controlled. Continue home beta-michel and ARB. Chest x-ray suspicious for superimposed pneumonia at lung bases although patient currently does not have a productive cough or other systemic signs of infection. We will monitor off antibiotics for now. Continue home levothyroxine. Order TSH and free T4. Patient's underlying anemia appears stable. She endorses constipation and we will start bowel regiment. Patient and patient's son updated on the plan. All questions answered to satisfaction. Please see residents note for additional details and management. Dr. Riki MD
[2025-10-28] VITALS (15 sets, daily range): BP systolic 110–157; BP diastolic 56–92; PULSE 61–96; RESP 16–100; TEMP 36.1–36.6; O2SAT 95–99; BMI 24.0
[2025-10-28 00:20] LABS: Troponin I 0.269 ng/mL (0.0-0.045)
[2025-10-28] MEDS: AMIODARONE 360 MG IVPB 360 MG/200 ML BAG 16.667 MG IV ×2 (02:17→12:35)
[2025-10-28 02:37] LABS: Partial Thromboplastin Time > 139.0 Seconds (22.0-36.0)
[2025-10-28 04:15] LABS: Basophils # (Auto) 0.1 Thou/mm3 (0.0-0.2); Basophils % (Auto) 1 % (0-2.5); Eosinophils # (Auto) 0.1 Thou/mm3 (0.0-0.5); Eosinophils % (Auto) 2 % (0-10); Hematocrit 29.0 % (36.0-46.0); Hemoglobin 9.7 g/dL (12.0-16.0); Immature Granulocytes Auto 0.01 Thou/mm3 (0.00-0.00); Lymphocytes # (Auto) 1.5 Thou/mm3 (1.0-4.8); Lymphocytes % (Auto) 37 % (10-50); Mean Corpuscular HGB Conc 33.4 g/dl (31.0-37.0); Mean Corpuscular Hemoglobin 32.7 pg (25.0-35.0); Mean Corpuscular Volume 98 fL (80-100); Monocytes # (Auto) 0.4 Thou/mm3 (0.0-0.8); Monocytes % (Auto) 9 % (0-12); Neutrophils # (Auto) 2.0 Thou/mm3 (1.8-7.7); Neutrophils % (Auto) 51 % (37-80); Nucleated Red Blood Cell # 0.00 Thou/mm3 (0.00-0.00); Nucleated Red Blood Cell % 0 /100 WBC (0); Platelet Count 261 Thou/mm3 (140-440); RDW Standard Deviation 53.8 fL (36.4-46.3); Red Blood Count 2.97 Miln/mm3 (4.00-5.20); White Blood Count 4.0 Thou/mm3 (3.6-11.0)
[2025-10-28 04:33] LABS: Anion Gap 8 (7-16); BUN/Creatinine Ratio 17 Ratio (12-20); Blood Urea Nitrogen 19 mg/dL (9-23); Calcium 8.9 mg/dL (8.3-10.6); Carbon Dioxide 25.3 mMol/L (20.0-31.0); Chloride 106 mMol/L (98-107); Creatinine (Component) 1.1 mg/dL (0.6-1.3); Glucose 85 mg/dL (74-106); Magnesium 1.9 mg/dL (1.6-2.6); Osmolality,Calculated 278 (275-295); Phosphorous 2.5 mg/dL (2.4-5.1); Potassium 4.2 mMol/L (3.4-5.1); Sodium 139 mMol/L (136-145); Thyroid Stimulating Hormone 26.69 uIU/mL (0.55-4.78); eGFR 53 See Note
[2025-10-28 04:34] LABS: Troponin I 0.229 ng/mL (0.0-0.045)
[2025-10-28 06:54] LABS: Glucose Estimated Average 108 mg/dL (80-131); Hemoglobin A1C 5.4 % Hgb (4.8-6.0)
[2025-10-28 06:57] LABS: Cardiac Risk Estimate 4.1 RATIO (3.7-5.6); Cholesterol 252 mg/dL (132-200); HDL Cholesterol 62 mg/dL (40-60); LDL Cholesterol,Calculated 173 mg/dL (0-130); Triglycerides 84 mg/dL (30-150)
[2025-10-28] MEDS: LEVOTHYROXINE SODIUM 25 MCG TABLET 50 MCG PO (07:25)
[2025-10-28] MEDS: ACETAMINOPHEN 325 MG TABLET 650 MG PO ×2 (07:26→20:17)
[2025-10-28 09:44] LABS: Partial Thromboplastin Time 85.8 Seconds (22.0-36.0)
[2025-10-28 10:42] LABS: Free T4 (Free Thyroxine) 0.56 ng/dL (0.89-1.76)
--- NOTE | 2025-10-28 10:47 | PD.RESCONSUL ---
HPI Data of Consult Requesting Physician: Curly Lyn MD Admitting Provider: Curly Lny MD Attending Provider: Curly Lyn MD Primary Care Provider: THA King Consult Narrative History of present illness: Patient is 70-year-old female with past medical history of coronary artery disease status post 6 stent placement, 2 to proximal LAD, 2 to the proximal and mid RCA in February 2024 at [facility], and another 2 stent placed in [facility] in 04/18/2024, history of paroxysmal A-fib, history of essential hypertension, hypothyroidism, arthritis, chronic back pain, presented to [facility] on 10/27/2025 with chief complaints of substernal chest pain that lasted about 30 minutes when she was using the bathroom. Patient stated that pain did not subsided with rest. Was associated with mild shortness of breath, dizziness, palpitation. Patient denied any nausea, vomiting, radiation to the back, neck or arm. Upon arrival to ED the symptoms has resolved. Patient is following , and dose of Eliquis was adjusted from 5 to 2.5 mg BID, patient also takes Plavix. Patient speaks Brent to, patient also requires assistance in her ADLs such as bathing and dressing. Patient also was complaining of constipation, and the symptoms mainly started at the bathroom when she was straining. In 04/18/24: LHC in [facility] Summary/findings: 1. Acute coronary syndrome: NSTEMI-peak troponin of 1.45 LHC showed 2 patent overlapping stents in the proximal LAD and 2 patent overlapping stents in the proximal RCA and severe 90% stenosis OM1 and severe 80 to 90% stenosis of the LCx. Rest of the arteries showed only minimal to mild disease. 2. LVEF is normal at 55 to 60%. LVEDP was slightly elevated at 18 mmHg. 3. Successful complex bifurcation PCI of the ostial and proximal OM1 with 2.5 x 12 mm Synergy with excellent results and JOSE-3 flow 4. Successful complex bifurcation PCI of the proximal LCx at the bifurcation of the OM1 with 2.75 x 16 mm Synergy WILLIAM stent with excellent results and JOSE-3 flow. Final kissing balloon inflation performed ED Course: -Initial vitals were BP 134/90 and HR 134 with afib with RvR -Labs significant for anemia with Hgb 9.7, initial troponin negative but repeat elevated to 0.109 -EKG showed afib with RvR at a rate of 137 -In the ED, patient was given metoprolol tartrate 5 mg IV x1 and converted to normal sinus rhythm, and aspirin 81 mg -Patient was admitted for NSTEMI type 1 versus type 2 Past medical history as above Past surgical history appendectomy as well as 6 ectomy and recent PCI at [facility] 3 weeks ago with 2 out of 4 stents, 2 stent on ostial and proximal OM1 , Proximal LCX at the bifurcation of the OM1. Medication, amiodarone, Eliquis 2.5 mg twice daily, atorvastatin 80 mg, Plavix 75 mg, levothyroxine 50 mg, metoprolol tartrate 25 mg every 12 hours, ranolazine 500 mg every 12 hours. Social history: Lives with the son here in [place] from [facility]. Patient denies any Smoking alcohol or drug abuse. Baseline patient is ADL and IADL independent except for chronic back pain and osteoarthritis as per the son who is at the bedside. Allergies: NKDA Travel history: None recently Family history significant for heart disease in the family and hypertension cc:: cc: Curly Lyn MD Exam Vital Signs Temp Pulse Resp BP Pulse Ox O2 Del Method O2 Flow Rate 97.4 F 65 20 117/81 96 Room Air 3 10/28/25 08:00 10/28/25 08:00 10/28/25 08:00 10/28/25 08:00 10/28/25 08:00 10/28/25 08:00 10/27/25 17:20 Results Labs 10/28/25 03:35 10/28/25 03:35 Labs: Short CBC 10/27/25 10/28/25 Range/Units 13:10 03:35 WBC 6.9 4.0 D (3.6-11.0) Thou/mm3 Hgb 9.7 L 9.7 L (12.0-16.0) g/dL Hct 29.6 L 29.0 L (36.0-46.0) % Plt Count 283 261 (140-440) Thou/mm3 BMP 10/27/25 10/28/25 13:10 03:35 Sodium 139 139 Potassium 4.4 4.2 Chloride 103 106 Carbon Dioxide 23.3 25.3 BUN 27 H 19 Creatinine 1.4 H 1.1 Glucose 143 H 85 D Calcium 9.4 8.9 Cardiac Enzymes 10/27/25 10/27/25 10/27/25 Range/Units 13:10 16:50 23:20 Troponin I < 0.020 0.109 H* 0.269 H* (0.0-0.045) ng/mL 10/28/25 Range/Units 03:35 Troponin I 0.229 H* (0.0-0.045) ng/mL Liver Function 10/27/25 Range/Units 13:10 Total Bilirubin 0.3 (0.3-1.2) mg/dL AST 22 (0-34) U/L ALT < 7 L (10-49) U/L Alkaline Phosphatase 58 (46-116) U/L Albumin 5.0 H (3.4-4.8) gm/dL Urine 10/27/25 Range/Units 18:42 Urine Color Lt-Yellow (Lt Yel-Yel) Urine Clarity Clear (Clear/Hazy) Urine pH 6.5 (5.0-7.0) Ur Specific [place] 1.013 (1.001-1.035) Urine Protein Trace (Neg - Trace) Urine Glucose (UA) Negative (Negative) Quality Measures Quality Measures none Medications Home Medications and Allergies Home Medications ?Medication ?Instructions ?Recorded ?Confirmed ?Type apixaban 2.5 mg tablet (Eliquis) 2.5 mg PO Q12H 10/28/25 10/28/25 History atorvastatin 80 mg tablet 80 mg PO HS 10/28/25 10/28/25 History levothyroxine 50 mcg tablet 50 mcg PO .am 10/28/25 10/28/25 History losartan 25 mg tablet 25 mg PO DAILY 10/28/25 10/28/25 History metoprolol tartrate 25 mg tablet 25 mg PO Q12H 10/28/25 10/28/25 History multivitamin 1 tab PO DAILY 10/28/25 10/28/25 History ranolazine 500 mg tablet,extended 500 mg PO Q12H 10/28/25 10/28/25 History release,12 hr Allergies Allergy/AdvReac Type Severity Reaction Status Date / Time No Known Allergies Allergy Unverified 03/08/22 12:49 Visit Medications Acetaminophen (Acetaminophen 325 Mg Tablet) 650 mg PO Q6H PRN PRN Reason: Fever >100.4 or Pain 1-3 Stop: 11/26/25 18:20 Last Admin: 10/28/25 07:26 Dose: 650 mg Atorvastatin Calcium (Atorvastatin Calcium 20 Mg Tablet) 80 mg PO HS [facility] Stop: 11/26/25 20:59 Last Admin: 10/27/25 21:13 Dose: 80 mg Clopidogrel Bisulfate (Clopidogrel Bisulfate 75 Mg Tablet) 75 mg PO QDAY TIFFANY Stop: 11/27/25 08:59 Heparin Sodium/Dextrose (Heparin In D5w Ivpb) 25,000 unit in 250 mls @ 7.272 mls/hr IV .Q24H TIFFANY; Protocol Stop: 11/10/25 18:44 Last Titration: 10/28/25 03:42 Dose: 9 units/kg/hr, 5.454 mls/hr Amiodarone HCl/Dextrose (Nexterone Ivpb) 360 mg in 200 mls @ 16.667 mls/hr IV .Q12H TIFFANY Stop: 10/29/25 00:40 Last Admin: 10/28/25 02:17 Dose: 16.667 mls/hr Levothyroxine Sodium (Levothyroxine Sodium 25 Mcg Tablet) 50 mcg PO ACBR TIFFANY Stop: 11/27/25 06:44 Last Admin: 10/28/25 07:25 Dose: 50 mcg Losartan Potassium (Losartan Potassium 25 Mg Tablet) 25 mg PO QDAY TIFFANY Stop: 11/27/25 08:59 Magnesium Hydroxide (Milk Of Magnesia Susp 30 Ml Udc) 30 ml PO QDAY PRN; Protocol PRN Reason: CONSTIPATION Stop: 11/27/25 06:44 Metoprolol Succinate (Metoprolol Succinate Xl 25 Mg Tabcr) 25 mg PO QDAY [facility] Stop: 11/26/25 18:44 Last Admin: 10/27/25 19:52 Dose: Not Given Ondansetron HCl (Ondansetron Inj 2 Mg/Ml Inj 2 Ml) 4 mg IVP Q6H PRN; Protocol PRN Reason: NAUSEA OR VOMITING Stop: 11/26/25 18:20 Ranolazine (Ranolazine 500 Mg Vivian (Non Formulary)) 500 mg PO Q12HR [facility] Stop: 11/27/25 08:59 Discontinued Medications Aspirin (Aspirin 81 Mg Chew) 81 mg PO X1 ONE Stop: 10/27/25 13:26 Last Admin: 10/27/25 13:36 Dose: 81 mg Heparin Sodium (Porcine) (Heparin Sod Inj 5000 Unit/Ml Vial) 5,000 unit IVP X1 ONE Stop: 10/27/25 13:26 Last Admin: 10/27/25 14:48 Dose: 5,000 unit Heparin Sodium (Porcine) (Heparin Sod Inj 5000 Unit/Ml Vial) 3,650 unit 60 unit/kg (3650 unit) IV X1 ONE; Protocol Stop: 10/27/25 18:32 Last Admin: 10/27/25 19:16 Dose: 3,650 unit Amiodarone HCl/Dextrose (Nexterone Ivpb) 150 mg in 100 mls @ 600 mls/hr IV .Q10M ONE Stop: 10/27/25 18:42 Last Admin: 10/27/25 19:02 Dose: Not Given Amiodarone HCl/Dextrose (Nexterone Ivpb) 360 mg in 200 mls @ 33.333 mls/hr IV .Q6H ONE Stop: 10/28/25 00:41 Last Admin: 10/27/25 19:02 Dose: Not Given Metoprolol Tartrate (Metoprolol Tartrate Inj 1 Mg/Ml Vial 5 Ml) 5 mg IVP X1 ONE Stop: 10/27/25 13:23 Last Admin: 10/27/25 13:36 Dose: 5 mg Metoprolol Tartrate (Metoprolol Tartrate Inj 1 Mg/Ml Vial 5 Ml) 5 mg IVP Q8HR TIFFANY Stop: 11/26/25 13:59 Last Admin: 10/28/25 05:15 Dose: 5 mg Morphine Sulfate (Morphine Sulf Inj 4 Mg/Ml Vial) 0.5 mg IVP X1 ONE Stop: 10/27/25 18:51 Last Admin: 10/27/25 19:20 Dose: Not Given
[2025-10-28] MEDS: CLOPIDOGREL BISULFATE 75 MG TABLET PO (10:53)
[2025-10-28] MEDS: METOPROLOL SUCCINATE XL 25 MG TABCR PO (10:54)
[2025-10-28] MEDS: RANOLAZINE 500 MG TABER (NON FORMULARY) PO ×2 (10:56→20:08)
--- NOTE | 2025-10-28 12:26 | PD.RESPRO ---
Documentation for date of: 10/28/25 Subjective Subjective Interval history: Patient is 70-year-old female with past medical history of coronary artery disease status post 6 stent placement, 2 to proximal LAD, 2 to the proximal and mid RCA in February 2024 at [facility], and another 2 stent placed in [facility] in 04/18/2024, history of paroxysmal A-fib, history of essential hypertension, hypothyroidism, arthritis, chronic back pain, presented to [facility] on 10/27/2025 with chief complaints of substernal chest pain that lasted about 30 minutes when she was using the bathroom. Patient stated that pain did not subsided with rest. Was associated with mild shortness of breath, dizziness, palpitation. Patient denied any nausea, vomiting, radiation to the back, neck or arm. Upon arrival to ED the symptoms has resolved. Patient is following , and dose of Eliquis was adjusted from 5 to 2.5 mg BID, patient also takes Plavix. Patient speaks Brent to, patient also requires assistance in her ADLs such as bathing and dressing. Patient also was complaining of constipation, and the symptoms mainly started at the bathroom when she was straining. In 04/18/24: LHC in [facility] Summary/findings: 1. Acute coronary syndrome: NSTEMI-peak troponin of 1.45 LHC showed 2 patent overlapping stents in the proximal LAD and 2 patent overlapping stents in the proximal RCA and severe 90% stenosis OM1 and severe 80 to 90% stenosis of the LCx. Rest of the arteries showed only minimal to mild disease. 2. LVEF is normal at 55 to 60%. LVEDP was slightly elevated at 18 mmHg. 3. Successful complex bifurcation PCI of the ostial and proximal OM1 with 2.5 x 12 mm Synergy with excellent results and JOSE-3 flow 4. Successful complex bifurcation PCI of the proximal LCx at the bifurcation of the OM1 with 2.75 x 16 mm Synergy WILLIAM stent with excellent results and JOSE-3 flow. Final kissing balloon inflation performed ED Course: -Initial vitals were BP 134/90 and HR 134 with afib with RvR -Labs significant for anemia with Hgb 9.7, initial troponin negative but repeat elevated to 0.109 -EKG showed afib with RvR at a rate of 137 -In the ED, patient was given metoprolol tartrate 5 mg IV x1 and converted to normal sinus rhythm, and aspirin 81 mg -Patient was admitted for NSTEMI type 1 versus type 2 Past medical history as above Past surgical history appendectomy as well as 6 ectomy and recent PCI at [facility] 3 weeks ago with 2 out of 4 stents, 2 stent on ostial and proximal OM1 , Proximal LCX at the bifurcation of the OM1. Medication, amiodarone, Eliquis 2.5 mg twice daily, atorvastatin 80 mg, Plavix 75 mg, levothyroxine 50 mg, metoprolol tartrate 25 mg every 12 hours, ranolazine 500 mg every 12 hours. Social history: Lives with the son here in [place] from [facility]. Patient denies any Smoking alcohol or drug abuse. Baseline patient is ADL and IADL independent except for chronic back pain and osteoarthritis as per the son who is at the bedside. Allergies: NKDA Travel history: None recently Family history significant for heart disease in the family and hypertension 10/28/25: Patient seen and examined at bedside. No acute overnight events. Labs and vitals are stable, patient continued to be on heparin and amiodarone drip, after completion the amiodarone GGT can be switched to amiodarone 200 mg twice daily, continue metoprolol 25 mg daily, continue current regimen with Plavix, atorvastatin. If patient continue to have any chest pain, tightness, we will consider LHC for that reason we will recommend to continue heparin drip for now. Exam Vital Signs Temp Pulse Resp BP Pulse Ox O2 Del Method O2 Flow Rate 97.4 F 72 20 110/56 L 96 Room Air 3 10/28/25 08:00 10/28/25 10:56 10/28/25 08:00 10/28/25 10:56 10/28/25 08:00 10/28/25 08:00 10/27/25 17:20 Narrative Exam GENERAL: NAD, AAOx3 HEENT: Moist mucosa. Eyes open, symmetrical, & clear CARDIO: Rapid regular rhythm Noted. No Murmurs. PULM: No noted coughing/dyspnea CTA B/L, no R/W/R GI: Abdomen soft, nondistended, non Tender. SKIN/MSK/EXT: No wounds/rashes/amputations, no pain on palpation.No Edema. Pedal pulses present B/L NEURO: AAOx3, no focal neuro deficits, able to move all 4 extremities Objective Labs 10/28/25 03:35 10/28/25 03:35 Labs: Laboratory Results - last 24 hr 10/27/25 10/27/25 10/27/25 13:10 16:50 18:42 WBC 6.9 RBC 2.90 L Hgb 9.7 L Hct 29.6 L MCV 102 H MCH 33.4 MCHC 32.8 RDW Std Deviation 57.0 H Plt Count 283 Neut % (Auto) 46 Lymph % (Auto) 48 [place] % (Auto) 4 Eos % (Auto) 1 Baso % (Auto) 1 Neut # (Auto) 3.2 Lymph # (Auto) 3.3 [place] # (Auto) 0.3 Eos # (Auto) 0.1 Baso # (Auto) 0.1 Immature Gran # (Auto) 0.01 H Absolute Nucleated RBC 0.00 Immature Gran % 0 Nucleated RBC % 0 PT 11.3 INR 1.1 APTT 21.8 L Sodium 139 Potassium 4.4 Chloride 103 Carbon Dioxide 23.3 Anion Gap 13 BUN 27 H Creatinine 1.4 H Estim Creat Clear Calc Not Performed. eGFR 40 L BUN/Creatinine Ratio [address] Glu mg/dL Hemoglobin A1c Calculated Osmolality 284 Calcium 9.4 Corrected Calcium 9.4 Phosphorus Magnesium Total Bilirubin 0.3 AST 22 ALT < 7 L Alkaline Phosphatase 58 Troponin I < 0.020 0.109 H* B-Natriuretic Peptide 328 H Total Protein 7.7 Albumin 5.0 H Globulin 2.7 Albumin/Globulin Ratio 1.9 Triglycerides Cholesterol LDL Cholesterol, Calc HDL Cholesterol Cholesterol/HDL Ratio TSH Free T4 Ur Collection Type Clean Catch Urine Color Lt-Yellow Urine Clarity Clear Urine pH 6.5 Ur Specific [place] 1.013 Urine Protein Trace Urine Glucose (UA) Negative Urine Ketones Negative Urine Blood Negative Urine Nitrite Negative Urine Bilirubin Negative Urine Urobilinogen (Auto) Negative Ur Leukocyte Esterase Negative Urine RBC 8 H Urine WBC 1 Ur Squamous Epith Cells < 1 Urine Bacteria None Ur Culture Indicated? Not Indicated 10/27/25 10/28/25 10/28/25 23:20 01:06 03:35 WBC 4.0 D RBC 2.97 L Hgb 9.7 L Hct 29.0 L MCV 98 MCH 32.7 MCHC 33.4 RDW Std Deviation 53.8 H Plt Count 261 Neut % (Auto) 51 Lymph % (Auto) 37 [place] % (Auto) 9 Eos % (Auto) 2 Baso % (Auto) 1 Neut # (Auto) 2.0 Lymph # (Auto) 1.5 [place] # (Auto) 0.4 Eos # (Auto) 0.1 Baso # (Auto) 0.1 Immature Gran # (Auto) 0.01 H Absolute Nucleated RBC 0.00 Immature Gran % 0 Nucleated RBC % 0 PT INR APTT > 139.0 H* D Sodium 139 Potassium 4.2 Chloride 106 Carbon Dioxide 25.3 Anion Gap 8 BUN 19 Creatinine 1.1 Estim Creat Clear Calc Not Performed. eGFR 53 L BUN/Creatinine Ratio [address] Glu mg/dL 108 Hemoglobin A1c 5.4 Calculated Osmolality 278 Calcium 8.9 Corrected Calcium Phosphorus 2.5 Magnesium 1.9 Total Bilirubin AST ALT Alkaline Phosphatase Troponin I 0.269 H* 0.229 H* B-Natriuretic Peptide Total Protein Albumin Globulin Albumin/Globulin Ratio Triglycerides 84 Cholesterol 252 H LDL Cholesterol, Calc 173 H HDL Cholesterol 62 H Cholesterol/HDL Ratio 4.1 TSH 26.69 H Free T4 Ur Collection Type Urine Color Urine Clarity Urine pH Ur Specific [place] Urine Protein Urine Glucose (UA) Urine Ketones Urine Blood Urine Nitrite Urine Bilirubin Urine Urobilinogen (Auto) Ur Leukocyte Esterase Urine RBC Urine WBC Ur Squamous Epith Cells Urine Bacteria Ur Culture Indicated? 10/28/25 10/28/25 05:35 09:05 WBC RBC Hgb Hct MCV MCH MCHC RDW Std Deviation Plt Count Neut % (Auto) Lymph % (Auto) [place] % (Auto) Eos % (Auto) Baso % (Auto) Neut # (Auto) Lymph # (Auto) [place] # (Auto) Eos # (Auto) Baso # (Auto) Immature Gran # (Auto) Absolute Nucleated RBC Immature Gran % Nucleated RBC % PT INR APTT 85.8 H D Sodium Potassium Chloride Carbon Dioxide Anion Gap BUN Creatinine Estim Creat Clear Calc eGFR BUN/Creatinine Ratio Glucose Estimated Ave Glu mg/dL Hemoglobin A1c Calculated Osmolality Calcium Corrected Calcium Phosphorus Magnesium Total Bilirubin AST ALT Alkaline Phosphatase Troponin I B-Natriuretic Peptide Total Protein Albumin Globulin Albumin/Globulin Ratio Triglycerides Cholesterol LDL Cholesterol, Calc HDL Cholesterol Cholesterol/HDL Ratio TSH Free T4 0.56 L Ur Collection Type Urine Color Urine Clarity Urine pH Ur Specific [place] Urine Protein Urine Glucose (UA) Urine Ketones Urine Blood Urine Nitrite Urine Bilirubin Urine Urobilinogen (Auto) Ur Leukocyte Esterase Urine RBC Urine WBC Ur Squamous Epith Cells Urine Bacteria Ur Culture Indicated? Quality Measures Quality Measures none Advance care planning discussed with:: patient Assessment & Plan Assessment Current Active Medications: Generic Name Dose Route Start Last Admin Trade Name Freq PRN Reason Stop Dose Admin Acetaminophen 650 mg 10/27/25 18:21 10/28/25 07:26 Acetaminophen 325 Mg Tablet PO 11/26/25 18:20 650 mg Q6H PRN Administration Fever >100.4 or Pain 1-3 Atorvastatin Calcium 80 mg 10/27/25 21:00 10/27/25 21:13 Atorvastatin Calcium 20 Mg Tablet PO 11/26/25 20:59 80 mg HS TIFFANY Administration Clopidogrel Bisulfate 75 mg 10/28/25 09:00 10/28/25 10:53 Clopidogrel Bisulfate 75 Mg Tablet PO 11/27/25 08:59 75 mg QDAY TIFFANY Administration Heparin Sodium/Dextrose 25,000 unit in 250 mls @ 7.272 mls/hr 10/27/25 18:45 10/28/25 10:30 Heparin In D5w Ivpb IV 11/10/25 18:44 7 units/kg/hr .Q24H TIFFANY 4.242 mls/hr Protocol Titration 12 UNITS/KG/HR Amiodarone HCl/Dextrose 360 mg in 200 mls @ 16.667 mls/hr 10/28/25 00:41 10/28/25 02:17 Nexterone Ivpb IV 10/29/25 00:40 16.667 mls/hr .Q12H TIFFANY Administration Levothyroxine Sodium 50 mcg 10/28/25 06:45 10/28/25 07:25 Levothyroxine Sodium 25 Mcg Tablet PO 11/27/25 06:44 50 mcg ACBR TIFFANY Administration Losartan Potassium 25 mg 10/28/25 09:00 10/28/25 10:55 Losartan Potassium 25 Mg Tablet PO 11/27/25 08:59 Not Given QDAY TIFFANY Magnesium Hydroxide 30 ml 10/28/25 06:45 Milk Of Magnesia Susp 30 Ml Udc PO 11/27/25 06:44 QDAY PRN CONSTIPATION Protocol Metoprolol Succinate 25 mg 10/27/25 18:45 10/28/25 10:54 Metoprolol Succinate Xl 25 Mg Tabcr PO 11/26/25 18:44 25 mg QDAY TIFFANY Administration Ondansetron HCl 4 mg 10/27/25 18:21 Ondansetron Inj 2 Mg/Ml Inj 2 Ml IVP 11/26/25 18:20 Q6H PRN NAUSEA OR VOMITING Protocol Ranolazine 500 mg 10/28/25 09:00 10/28/25 10:56 Ranolazine 500 Mg Vivian (Non Formulary) PO 11/27/25 08:59 500 mg Q12HR TIFFANY Administration Plan Patient is 70-year-old female with past medical history of coronary artery disease status post 6 stent placement, 2 to proximal LAD, 2 to the proximal and mid RCA in February 2024 at [facility], and another 2 stent placed in [facility] in 04/18/2024, history of paroxysmal A-fib, history of essential hypertension, hypothyroidism, arthritis, chronic back pain was admitted for non-STEMI demand ischemia as well as A-fib with RVR treatment and management. Cardiology was consulted for further evaluation. 1. Non-STEMI/elevated troponin type I less likely, versus type II demand ischemia 2. Chronic A-fib with RVR on Eliquis 3. History of coronary artery disease status post 6 stent placement on Plavix 4. Essential hypertension 5. Hyperlipidemia 6. Hypothyroidism 7. Osteoarthritis. 8. Chronic back pain Patient presented to ED with substernal chest pain lasting about 30 minutes occurring while using the bathroom, pain did not subside with rest and was associated with shortness of breath, dizziness, palpitation. Patient has a history of non-STEMI, her coronary angiogram showed multivessel disease, status post multiple stent placement, left ventricular ejection fraction was normal 55 to 60%, Elevated troponin which currently downtrended, EKG showed A-fib with RVR at rate of 137 which successfully treated with metoprolol IV push, and patient converted to normal sinus rhythm. Given the elevated troponin, clinical presentation is most consistent with non-STEMI type II demand ischemia in the setting of A-fib with RVR, constipation(straining during bowel movement). Patient was placed on heparin drip On amiodarone drip In 04/18/24: LHC in [facility] Summary/findings: 1. Acute coronary syndrome: NSTEMI-peak troponin of 1.45 LHC showed 2 patent overlapping stents in the proximal LAD and 2 patent overlapping stents in the proximal RCA and severe 90% stenosis OM1 and severe 80 to 90% stenosis of the LCx. Rest of the arteries showed only minimal to mild disease. 2. LVEF is normal at 55 to 60%. LVEDP was slightly elevated at 18 mmHg. 3. Successful complex bifurcation PCI of the ostial and proximal OM1 with 2.5 x 12 mm Synergy with excellent results and JOSE-3 flow 4. Successful complex bifurcation PCI of the proximal LCx at the bifurcation of the OM1 with 2.75 x 16 mm Synergy WILLIAM stent with excellent results and JOSE-3 flow. Final kissing balloon inflation performed Recommendation Continue amiodarone drip, can be transitioned after GGT to amiodarone 200 mg twice daily, continue heparin drip, if patient continue having chest pain, tightness Continue metoprolol tartrate 25 mg every 12 hours Monitor for recurrence of RVR and adjust medication if necessary Continue Plavix Hold Eliquis Continue heparin drip Continue statin 80 mg daily We will continue close monitor the patient's symptoms, vitals and cardiac enzyme. If symptoms recur, we will consider repeat coronary angiogram or noninvasive imaging to assess for ischemia or stent complications We will obtain echo to rule out any wall dyskinesia, hypokinesia, to obtain LV and RV function Monitor blood pressure regularly, especially given the patient history of hypertension and current medication. Can continue ranolazine Patient care was discussed with attending physician Dr. Joe Mchugh MD PGY-3 Attending Provider Attestation/Addendum I have personally seen and examined the patient separately on the above date of service and discussed the plan of care with the resident. I reviewed the resident Dr. Brittney Nj consultation progress note and agree with the resident findings and plan in the note above and have also edited the documentation to reflect my findings and plan. Patient well-known to me and follows with me in the office. Patient with significant CAD history with 16 placement 2 in the LAD, 2 in the RCA and 2 in the LCx and OM1 bifurcation by me during February and March 2024. Patient also has paroxysmal atrial fibrillation and is on anticoagulation and she is on Eliquis and Plavix. Patient generally is compliant with her medication but at times when she does not feel well she does not take her medication regularly as per the family and also not very compliant with her office visits 2. She came in as she had palpitations along with chest tightness as well as chest pressure while she was in the restroom and also had weakness & had to help her and bring her to the emergency department for further evaluation. She did have atrial fibrillation with RVR on presentation which improved with amiodarone and recommend to continue the same to complete the drip and eventually start the patient on amiodarone 200 mg twice daily along with metoprolol and she was only on amiodarone 200 mg once daily previously. Hold apixaban for now and start the patient on heparin drip in view of possible procedures. Will check echo to rule out any kind of regional wall motion abnormalities, check LV function RV function and also diastolic function. Initial EKG with atrial fibrillation with RVR showed significant ST depressions in multiple leads along with ST elevation in the aVR leads concerning for left main disease or less multivessel disease. Discussed with the patient and plan to [facility] on Thursday morning. Patient does complain of some constipation which she has been suffering for the past few days and recommend to give her magnesium citrate along with Colace and senna. Management of rest of the medical conditions as per primary team and other consultants. Thank you for the consult and allowing me to participate in the care of the patient. Cardiology will continue to follow. Jorge Luis Diaz M.D. Interventional Cardiology
--- NOTE | 2025-10-28 13:58 | ESPR_ITS ---
Documentation for date of: 10/28/25 Subjective Subjective Interval history: Patient is seen and examined at bedside. No acute overnight events. Reported that her chest discomfort is getting better Vitals are stable. No further episodes of A-fib were noted Will continue amiodarone drip and heparin drip for now. If chest pain continues to persist, wood heel flap inserter recommended to take her to the [facility]. Resumed her home ranolazine 500 mg every 12 hourly. Will transition to oral amiodarone once IV drip is done Exam Vital Signs Temp Pulse Resp BP Pulse Ox O2 Del Method O2 Flow Rate 96.9 F 65 21 H 117/85 H 97 Room Air 3 10/28/25 12:00 10/28/25 12:35 10/28/25 12:00 10/28/25 12:35 10/28/25 12:00 10/28/25 12:00 10/27/25 17:20 Narrative Exam General: Awake. HEENT: Normocephalic, atraumatic, mucous membranes moist. Heart: Regular rate and rhythm, no murmurs. Lungs: Clear to auscultation with no wheezing or crackles. Abdomen: Soft, nondistended, nontender, positive bowel sounds. ?No guarding or rebound tenderness. Neurologic: Alert and oriented x3, no gross neurological deficit, and patient able to move all 4 extremities. Extremities: No edema. Skin: No rash or ecchymoses. Objective Labs 10/28/25 03:35 10/28/25 03:35 Labs: Laboratory Results - last 24 hr 10/27/25 10/27/25 10/27/25 13:10 16:50 18:42 WBC 6.9 RBC 2.90 L Hgb 9.7 L Hct 29.6 L MCV 102 H MCH 33.4 MCHC 32.8 RDW Std Deviation 57.0 H Plt Count 283 Neut % (Auto) 46 Lymph % (Auto) 48 [place] % (Auto) 4 Eos % (Auto) 1 Baso % (Auto) 1 Neut # (Auto) 3.2 Lymph # (Auto) 3.3 [place] # (Auto) 0.3 Eos # (Auto) 0.1 Baso # (Auto) 0.1 Immature Gran # (Auto) 0.01 H Absolute Nucleated RBC 0.00 Immature Gran % 0 Nucleated RBC % 0 PT 11.3 INR 1.1 APTT 21.8 L Sodium 139 Potassium 4.4 Chloride 103 Carbon Dioxide 23.3 Anion Gap 13 BUN 27 H Creatinine 1.4 H Estim Creat Clear Calc Not Performed. eGFR 40 L BUN/Creatinine Ratio [address] Glu mg/dL Hemoglobin A1c Calculated Osmolality 284 Calcium 9.4 Corrected Calcium 9.4 Phosphorus Magnesium Total Bilirubin 0.3 AST 22 ALT < 7 L Alkaline Phosphatase 58 Troponin I < 0.020 0.109 H* B-Natriuretic Peptide 328 H Total Protein 7.7 Albumin 5.0 H Globulin 2.7 Albumin/Globulin Ratio 1.9 Triglycerides Cholesterol LDL Cholesterol, Calc HDL Cholesterol Cholesterol/HDL Ratio TSH Free T4 Ur Collection Type Clean Catch Urine Color Lt-Yellow Urine Clarity Clear Urine pH 6.5 Ur Specific [place] 1.013 Urine Protein Trace Urine Glucose (UA) Negative Urine Ketones Negative Urine Blood Negative Urine Nitrite Negative Urine Bilirubin Negative Urine Urobilinogen (Auto) Negative Ur Leukocyte Esterase Negative Urine RBC 8 H Urine WBC 1 Ur Squamous Epith Cells < 1 Urine Bacteria None Ur Culture Indicated? Not Indicated 10/27/25 10/28/25 10/28/25 23:20 01:06 03:35 WBC 4.0 D RBC 2.97 L Hgb 9.7 L Hct 29.0 L MCV 98 MCH 32.7 MCHC 33.4 RDW Std Deviation 53.8 H Plt Count 261 Neut % (Auto) 51 Lymph % (Auto) 37 [place] % (Auto) 9 Eos % (Auto) 2 Baso % (Auto) 1 Neut # (Auto) 2.0 Lymph # (Auto) 1.5 [place] # (Auto) 0.4 Eos # (Auto) 0.1 Baso # (Auto) 0.1 Immature Gran # (Auto) 0.01 H Absolute Nucleated RBC 0.00 Immature Gran % 0 Nucleated RBC % 0 PT INR APTT > 139.0 H* D Sodium 139 Potassium 4.2 Chloride 106 Carbon Dioxide 25.3 Anion Gap 8 BUN 19 Creatinine 1.1 Estim Creat Clear Calc Not Performed. eGFR 53 L BUN/Creatinine Ratio [address] Glu mg/dL 108 Hemoglobin A1c 5.4 Calculated Osmolality 278 Calcium 8.9 Corrected Calcium Phosphorus 2.5 Magnesium 1.9 Total Bilirubin AST ALT Alkaline Phosphatase Troponin I 0.269 H* 0.229 H* B-Natriuretic Peptide Total Protein Albumin Globulin Albumin/Globulin Ratio Triglycerides 84 Cholesterol 252 H LDL Cholesterol, Calc 173 H HDL Cholesterol 62 H Cholesterol/HDL Ratio 4.1 TSH 26.69 H Free T4 Ur Collection Type Urine Color Urine Clarity Urine pH Ur Specific [place] Urine Protein Urine Glucose (UA) Urine Ketones Urine Blood Urine Nitrite Urine Bilirubin Urine Urobilinogen (Auto) Ur Leukocyte Esterase Urine RBC Urine WBC Ur Squamous Epith Cells Urine Bacteria Ur Culture Indicated? 10/28/25 10/28/25 05:35 09:05 WBC RBC Hgb Hct MCV MCH MCHC RDW Std Deviation Plt Count Neut % (Auto) Lymph % (Auto) [place] % (Auto) Eos % (Auto) Baso % (Auto) Neut # (Auto) Lymph # (Auto) [place] # (Auto) Eos # (Auto) Baso # (Auto) Immature Gran # (Auto) Absolute Nucleated RBC Immature Gran % Nucleated RBC % PT INR APTT 85.8 H D Sodium Potassium Chloride Carbon Dioxide Anion Gap BUN Creatinine Estim Creat Clear Calc eGFR BUN/Creatinine Ratio Glucose Estimated Ave Glu mg/dL Hemoglobin A1c Calculated Osmolality Calcium Corrected Calcium Phosphorus Magnesium Total Bilirubin AST ALT Alkaline Phosphatase Troponin I B-Natriuretic Peptide Total Protein Albumin Globulin Albumin/Globulin Ratio Triglycerides Cholesterol LDL Cholesterol, Calc HDL Cholesterol Cholesterol/HDL Ratio TSH Free T4 0.56 L Ur Collection Type Urine Color Urine Clarity Urine pH Ur Specific [place] Urine Protein Urine Glucose (UA) Urine Ketones Urine Blood Urine Nitrite Urine Bilirubin Urine Urobilinogen (Auto) Ur Leukocyte Esterase Urine RBC Urine WBC Ur Squamous Epith Cells Urine Bacteria Ur Culture Indicated? Quality Measures Quality Measures none Advance care planning discussed with:: patient Assessment & Plan Assessment Current Active Medications: Generic Name Dose Route Start Last Admin Trade Name Venita PRN Reason Stop Dose Admin Acetaminophen 650 mg 10/27/25 18:21 10/28/25 07:26 Acetaminophen 325 Mg Tablet PO 11/26/25 18:20 650 mg Q6H PRN Administration Fever >100.4 or Pain 1-3 Atorvastatin Calcium 80 mg 10/27/25 21:00 10/27/25 21:13 Atorvastatin Calcium 20 Mg Tablet PO 11/26/25 20:59 80 mg HS TIFFANY Administration Clopidogrel Bisulfate 75 mg 10/28/25 09:00 10/28/25 10:53 Clopidogrel Bisulfate 75 Mg Tablet PO 11/27/25 08:59 75 mg QDAY TIFFANY Administration Heparin Sodium/Dextrose 25,000 unit in 250 mls @ 7.272 mls/hr 10/27/25 18:45 10/28/25 10:30 Heparin In D5w Ivpb IV 11/10/25 18:44 7 units/kg/hr .Q24H TIFFANY 4.242 mls/hr Protocol Titration 12 UNITS/KG/HR Amiodarone HCl/Dextrose 360 mg in 200 mls @ 16.667 mls/hr 10/28/25 00:41 10/28/25 12:35 Nexterone Ivpb IV 10/29/25 00:40 16.667 mls/hr .Q12H TIFFANY Administration Levothyroxine Sodium 50 mcg 10/28/25 06:45 10/28/25 07:25 Levothyroxine Sodium 25 Mcg Tablet PO 11/27/25 06:44 50 mcg ACBR TIFFANY Administration Losartan Potassium 25 mg 10/28/25 09:00 10/28/25 10:55 Losartan Potassium 25 Mg Tablet PO 11/27/25 08:59 Not Given QDAY TIFFANY Magnesium Hydroxide 30 ml 10/28/25 06:45 Milk Of Magnesia Susp 30 Ml Udc PO 11/27/25 06:44 QDAY PRN CONSTIPATION Protocol Metoprolol Succinate 25 mg 10/27/25 18:45 10/28/25 10:54 Metoprolol Succinate Xl 25 Mg Tabcr PO 11/26/25 18:44 25 mg QDAY TIFFANY Administration Ondansetron HCl 4 mg 10/27/25 18:21 Ondansetron Inj 2 Mg/Ml Inj 2 Ml IVP 11/26/25 18:20 Q6H PRN NAUSEA OR VOMITING Protocol Ranolazine 500 mg 10/28/25 09:00 10/28/25 10:56 Ranolazine 500 Mg Vivian (Non Formulary) PO 11/27/25 08:59 500 mg Q12HR TIFFANY Administration Plan 70-year-old female with past medical history of 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 Patient with high risk history given multivessel disease and not a CABG candidate. Troponin elevated from <0.020 to 0.109, may be type 2 demand in the setting of afib with RvR, however will continue to trend. -Admitted to telemetry -Cardiology consulted and following -Started heparin drip as recommended by cardiology -Continue home Plavix 75 mg qday -TTE ordered, pending -Troponin downtrended -Resumed home Ranolazine #Paroxysmal afib with RvR Patient arrived to ED in afib with RvR and converted after given metoprolol tartrate IV 5 mg x1. Patient has known history and is on Eliquis 2.5 mg BID, recently reduced by wood heel flap inserter. -Started amiodarone drip as recommended by cardiology, will transition to oral once drip is completed -Resume home metoprolol succinate 25 mg qday -Maintain potassium >4.0 and magnesium >2.0 #History of hypertension -Continue home medication, losartan 25mg once daily #History of hypothyroidism -TSH is 26.69 -Continue home levothyroxine 50 -Follow up on outpatient basis with PCP for dose adjustment #History of hyperlipidemia -Lipid panel -Continue home atorvastatin 80 mg HS #Anemia of chronic disease Patient hemoglobin appears at baseline. -Maintain Hgb >8.0 #Constipation Patient reports constipation -Ordered mineral oil enema DVT prophylaxis: Heparin drip GI prophylaxis: Not indicated Diet: Cardiac Ayala: None Lines: Peripheral IV Antibiotics: None CODE STATUS: FULL Reason for hospitalization: NSTEMI Patient plan of care was discussed with the attending physician, Dr. Riki Oakes, PGY2 Attending Provider Attestation/Addendum I have examined the patient, reviewed labs and imaging findings, discussed the case with the resident(s), and reviewed entered orders. I agree with the plan of care as outlined in this note, with these additional summaries/recommendations: Patient is a 70-year-old female with a medical history of CAD s/p multiple stents (6), primary hypertension, hypothyroidism, chronic atrial fibrillation, dyslipidemia, and osteoarthritis presents to [facility] emergency department on 10/27/2025 with chief complaint of substernal chest pain. Patient seen at bedside. No acute overnight events. Patient denies chest pain this morning. In the emergency room patient was found to be in atrial fibrillation with rapid ventricular response with rates into the 150s. Patient received multiple IV pushes in the emergency room with improvement in rate although appears paroxysmal with intermittent episodes of RVR. Continue amiodarone gtt. and heparin gtt. Target APTT of 60 to 80 seconds, APTT supratherapeutic today and pharmacy to adjust rate. In-house cardiology following, recommendations appreciated. Echocardiogram pending. Monitor electrolytes. Will transition to oral when able. Patient was also found to have elevated troponin in the emergency room in the setting of chest pain. EKG showed some reciprocal changes to the anterior and lateral leads and ST change in V6. Most likely NSTEMI type II versus less likely NSTEMI type I. Nonetheless patient covered with heparin gtt. for RVR and NSTEMI. Continue home Plavix and high intensity statin. Continue home ranolazine for angina and can give small dose of IV morphine if still not controlled. Continue home beta- michel and ARB. Chest x-ray suspicious for superimposed pneumonia at lung bases although patient currently does not have a productive cough or other systemic signs of infection. We will monitor off antibiotics for now. Continue home levothyroxine. TSH and free T4 still not at goal although improved from last studies on file. Outpatient follow-up with PCP for continued management. Patient's underlying anemia appears stable. She endorses constipation and requests enema this morning. Patient and patient's son updated on the plan. All questions answered to satisfaction. Please see residents note for additional details and management. Dr. Riki MD
[2025-10-28 17:13] LABS: Partial Thromboplastin Time 45.5 Seconds (22.0-36.0)
[2025-10-28] MEDS: HEPARIN SOD INJ 5000 UNIT/ML VIAL 1800 UNIT IVP (18:11)
[2025-10-28] MEDS: MAGNESIUM CITRATE 300 ML BTL PO (20:08)
[2025-10-28] MEDS: Heparin/D5w 25K 250 ML Ivpb 25,000 UNIT/250 ML BAG 5.454 UNIT IV (20:09)
[2025-10-28] MEDS: ATORVASTATIN CALCIUM 20 MG TABLET 80 MG PO (20:09)
[2025-10-28] MEDS: SENNA/DOCUSATE SOD 1 TAB TABLET 2 TAB PO (20:11)
[2025-10-28 20:56] LABS: Partial Thromboplastin Time 66.4 Seconds (22.0-36.0)
[2025-10-29] VITALS (12 sets, daily range): BP systolic 125–175; BP diastolic 62–97; PULSE 57–78; RESP 14–95; TEMP 36.1–36.8; O2SAT 92–99; BMI 24.0
[2025-10-29 01:14] LABS: Partial Thromboplastin Time 62.9 Seconds (22.0-36.0)
[2025-10-29] MEDS: LEVOTHYROXINE SODIUM 25 MCG TABLET 50 MCG PO (06:22)
[2025-10-29 09:09] LABS: Basophils # (Auto) 0.0 Thou/mm3 (0.0-0.2); Basophils % (Auto) 1 % (0-2.5); Eosinophils # (Auto) 0.1 Thou/mm3 (0.0-0.5); Eosinophils % (Auto) 3 % (0-10); Hematocrit 27.0 % (36.0-46.0); Hemoglobin 8.9 g/dL (12.0-16.0); Immature Granulocytes Auto 0.01 Thou/mm3 (0.00-0.00); Lymphocytes # (Auto) 1.3 Thou/mm3 (1.0-4.8); Lymphocytes % (Auto) 36 % (10-50); Mean Corpuscular HGB Conc 33.0 g/dl (31.0-37.0); Mean Corpuscular Hemoglobin 32.2 pg (25.0-35.0); Mean Corpuscular Volume 98 fL (80-100); Monocytes # (Auto) 0.3 Thou/mm3 (0.0-0.8); Monocytes % (Auto) 8 % (0-12); Neutrophils # (Auto) 1.9 Thou/mm3 (1.8-7.7); Neutrophils % (Auto) 52 % (37-80); Nucleated Red Blood Cell # 0.00 Thou/mm3 (0.00-0.00); Nucleated Red Blood Cell % 0 /100 WBC (0); Platelet Count 262 Thou/mm3 (140-440); RDW Standard Deviation 54.4 fL (36.4-46.3); Red Blood Count 2.76 Miln/mm3 (4.00-5.20); White Blood Count 3.6 Thou/mm3 (3.6-11.0)
[2025-10-29 09:33] LABS: Anion Gap 10 (7-16); BUN/Creatinine Ratio 18 Ratio (12-20); Blood Urea Nitrogen 22 mg/dL (9-23); Calcium 8.9 mg/dL (8.3-10.6); Carbon Dioxide 25.1 mMol/L (20.0-31.0); Chloride 105 mMol/L (98-107); Creatinine (Component) 1.2 mg/dL (0.6-1.3); Estimated Creatinine Clearance 35.1 mL/min (>60); Glucose 86 mg/dL (74-106); Magnesium 1.8 mg/dL (1.6-2.6); Osmolality,Calculated 281 (275-295); Phosphorous 3.2 mg/dL (2.4-5.1); Potassium 4.2 mMol/L (3.4-5.1); Sodium 140 mMol/L (136-145); eGFR 48 See Note
[2025-10-29 09:54] LABS: INR 1.1 (0.9-1.3); Partial Thromboplastin Time 60.1 Seconds (22.0-36.0); Prothrombin Time 11.4 Seconds (9.0-12.2)
--- NOTE | 2025-10-29 10:00 | ESPR_ITS ---
Documentation for date of: 10/29/25 Subjective Subjective Interval history: Patient seen at bedside with son translating. No acute overnight telemetry alarms. No further episodes of AFib or RVR reported overnight. Chest discomfort remains resolved. Palpitations improved, none today. Reports bowel movement yesterday followed by diarrhea last night, after which she felt better. Has not eaten breakfast yet, but states she feels she can eat and plans to attempt today. Sleep has been poor, feels tired/lazy but comfortable. No red/black stools, no bleeding, breathing comfortably. Cardiology to plan to cath patient tomorrow. Exam Vital Signs Temp Pulse Resp BP Pulse Ox O2 Del Method O2 Flow Rate 97.7 F 65 18 151/95 H 97 Room Air 3 10/29/25 08:00 10/29/25 08:00 10/29/25 08:00 10/29/25 08:00 10/29/25 08:00 10/29/25 04:00 10/29/25 04:00 Narrative Exam General: Awake. HEENT: Normocephalic, atraumatic, mucous membranes moist. Heart: Regular rate and rhythm, no murmurs. Lungs: Clear to auscultation with no wheezing or crackles. Abdomen: Soft, nondistended, nontender, positive bowel sounds. ?No guarding or rebound tenderness. Neurologic: Alert and oriented x3, no gross neurological deficit, and patient able to move all 4 extremities. Extremities: No edema. Skin: No rash or ecchymoses. Objective Labs 10/30/25 05:35 10/30/25 05:35 Labs: Laboratory Results - last 24 hr 10/28/25 10/28/25 10/28/25 05:35 16:25 19:31 WBC RBC Hgb Hct MCV MCH MCHC RDW Std Deviation Plt Count Neut % (Auto) Lymph % (Auto) [place] % (Auto) Eos % (Auto) Baso % (Auto) Neut # (Auto) Lymph # (Auto) [place] # (Auto) Eos # (Auto) Baso # (Auto) Immature Gran # (Auto) Absolute Nucleated RBC Immature Gran % Nucleated RBC % PT INR APTT 45.5 H D 66.4 H D Sodium Potassium Chloride Carbon Dioxide Anion Gap BUN Creatinine Estim Creat Clear Calc eGFR BUN/Creatinine Ratio Glucose Calculated Osmolality Calcium Phosphorus Magnesium Free T4 0.56 L 10/29/25 10/29/25 00:21 07:20 WBC 3.6 RBC 2.76 L Hgb 8.9 L Hct 27.0 L MCV 98 MCH 32.2 MCHC 33.0 RDW Std Deviation 54.4 H Plt Count 262 Neut % (Auto) 52 Lymph % (Auto) 36 [place] % (Auto) 8 Eos % (Auto) 3 Baso % (Auto) 1 Neut # (Auto) 1.9 Lymph # (Auto) 1.3 [place] # (Auto) 0.3 Eos # (Auto) 0.1 Baso # (Auto) 0.0 Immature Gran # (Auto) 0.01 H Absolute Nucleated RBC 0.00 Immature Gran % 0 Nucleated RBC % 0 PT 11.4 INR 1.1 APTT 62.9 H 60.1 H Sodium 140 Potassium 4.2 Chloride 105 Carbon Dioxide 25.1 Anion Gap 10 BUN 22 Creatinine 1.2 Estim Creat Clear Calc 35.1 L eGFR 48 L BUN/Creatinine Ratio 18 Glucose 86 Calculated Osmolality 281 Calcium 8.9 Phosphorus 3.2 Magnesium 1.8 Free T4 Quality Measures Quality Measures VTE prophylaxis Advance care planning discussed with:: patient and child Assessment & Plan Assessment Current Active Medications: Generic Name Dose Route Start Last Admin Trade Name Freq PRN Reason Stop Dose Admin Acetaminophen 650 mg 10/27/25 18:21 10/28/25 20:17 Acetaminophen 325 Mg Tablet PO 11/26/25 18:20 650 mg Q6H PRN Administration Fever >100.4 or Pain 1-3 Amiodarone HCl 200 mg 10/29/25 21:00 Amiodarone Hcl 200 Mg Tablet PO 11/28/25 20:59 BID TIFFANY Atorvastatin Calcium 80 mg 10/27/25 21:00 10/28/25 20:09 Atorvastatin Calcium 20 Mg Tablet PO 11/26/25 20:59 80 mg HS TIFFANY Administration Clopidogrel Bisulfate 75 mg 10/28/25 09:00 10/28/25 10:53 Clopidogrel Bisulfate 75 Mg Tablet PO 11/27/25 08:59 75 mg QDAY TIFFANY Administration Heparin Sodium/Dextrose 25,000 unit in 250 mls @ 7.272 mls/hr 10/27/25 18:45 10/29/25 01:15 Heparin In D5w Ivpb IV 11/10/25 18:44 9 units/kg/hr .Q24H TIFFANY 5.454 mls/hr Protocol Titration 12 UNITS/KG/HR Levothyroxine Sodium 50 mcg 10/28/25 06:45 10/29/25 06:22 Levothyroxine Sodium 25 Mcg Tablet PO 11/27/25 06:44 50 mcg ACBR TIFFANY Administration Losartan Potassium 25 mg 10/28/25 09:00 10/28/25 10:55 Losartan Potassium 25 Mg Tablet PO 11/27/25 08:59 Not Given QDAY TIFFANY Magnesium Hydroxide 30 ml 10/28/25 06:45 Milk Of Magnesia Susp 30 Ml Udc PO 11/27/25 06:44 QDAY PRN CONSTIPATION Protocol Metoprolol Succinate 25 mg 10/27/25 18:45 10/28/25 10:54 Metoprolol Succinate Xl 25 Mg Tabcr PO 11/26/25 18:44 25 mg QDAY TIFFANY Administration Ondansetron HCl 4 mg 10/27/25 18:21 Ondansetron Inj 2 Mg/Ml Inj 2 Ml IVP 11/26/25 18:20 Q6H PRN NAUSEA OR VOMITING Protocol Ranolazine 500 mg 10/28/25 09:00 10/28/25 20:08 Ranolazine 500 Mg Vivian (Non Formulary) PO 11/27/25 08:59 500 mg Q12HR TIFFANY Administration Sennosides 2 tab 10/28/25 21:00 10/28/25 20:11 Senna/Docusate Sod 1 Tab Tablet PO 11/27/25 20:59 2 tab BID TIFFANY Administration Protocol Plan 70-year-old Greek/Brent-speaking female with history of multivessel CAD s/p 6 stents and paroxysmal AFib admitted 10/27 for NSTEMI vs demand ischemia, converted to NSR with IV metoprolol and maintained on amiodarone and heparin drips, now clinically stable with resolved chest pain and controlled vitals. Cardiology has scheduled [facility] for tomorrow. 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 Patient with high risk history given multivessel disease and not a CABG candidate. Troponin elevated from <0.020 to 0.109, may be type 2 demand in the setting of afib with RvR, however will continue to trend. 10/29/25: CP resolved; troponin peaked 0.109 then downtrended. -Admitted to telemetry -Cardiology consulted and following -Cardiology to perform Cath tomorrow -Continue heparin drip per cardiology protocol until cath -Continue home Plavix 75 mg qday -TTE ordered, pending -Troponin downtrended, no need for more trends -Resumed home Ranolazine #Paroxysmal afib with RvR Patient arrived to ED in afib with RvR and converted after given metoprolol tartrate IV 5 mg x1. Patient has known history and is on Eliquis 2.5 mg BID, recently reduced by funeral prearrangement counselor. -continue amiodarone drip as recommended by cardiology, will transition to oral once drip is completed -Resume home metoprolol succinate 25 mg qday -Maintain potassium >4.0 and magnesium >2.0 #Hypertension BP 133/62, stable. -Continue home medication, losartan 25mg once daily #History of hypothyroidism -TSH is 26.69 -Continue home levothyroxine 50 -Follow up on outpatient basis with PCP for dose adjustment #History of hyperlipidemia Lipid panel, Total cholesterol 252, LDL 173, HDL 62 -Continue home atorvastatin 80 mg HS #Anemia of chronic disease Patient hemoglobin appears at baseline. -Maintain Hgb >8.0 #Constipation, resolved Patient reports having a BM overnight with diarrhea post BM. -continue to monitor DVT prophylaxis: Heparin drip GI prophylaxis: Not indicated Diet: Cardiac Ayala: None Lines: Peripheral IV Antibiotics: None CODE STATUS: FULL Reason for hospitalization: NSTEMI ----- Plan discussed with attending physician Dr. Riki Queen MD PGY-1 Internal Medicine Attending Provider Attestation/Addendum I have examined the patient, reviewed labs and imaging findings, discussed the case with the resident(s), and reviewed entered orders. I agree with the plan of care as outlined in this note, with these additional summaries/recommendations: Patient is a 70-year-old female with a medical history of CAD s/p multiple stents (6), primary hypertension, hypothyroidism, chronic atrial fibrillation, dyslipidemia, and osteoarthritis presents to [facility] emergency department on 10/27/2025 with chief complaint of substernal chest pain. Patient seen at bedside. No acute overnight events. Patient endorses significant improvement in constipation and states she had a bowel movement overnight. She still endorses generalized weakness. Discussed that she will go for cardiac catheterization tomorrow with cardiology 10/30/2025 and n.p.o. after midnight. Patient denies chest pain this morning. Patient is status post amiodarone drip for atrial fibrillation with RVR. Continue amiodarone 200 mg p.o. twice daily. Continue metoprolol succinate XL 25 mg p.o. daily. Patient noted to be hypertensive today and we may need to adjust antihypertensive regimen as systolic blood pressure trending into 170s this morning. Continue heparin drip for now as patient will go for heart cath tomorrow and will discuss transitioning to NOAC with cardiology after cardiac cath. Continue to monitor on telemetry. Monitor electrolytes closely. In-house cardiology following, recommendations appreciated. Echocardiogram pending. Patient was also found to have elevated troponin in the emergency room in the setting of chest pain. EKG showed some reciprocal changes to the anterior and lateral leads and ST change in V6. Most likely NSTEMI type I versus type II. Continue heparin gtt. Continue home Plavix and high intensity statin. Continue home ranolazine for angina. Chest x-ray suspicious for superimposed pneumonia at lung bases although patient currently does not have a productive cough or other systemic signs of infection. No need for antibiotics at this time and suspicion for pneumonia is low. Continue home levothyroxine. TSH and free T4 still not at goal although improved from last studies on file. Outpatient follow-up with PCP for continued management. Patient's underlying anemia appears stable. Patient and patient's son updated on the plan. All questions answered to satisfaction. Please see residents note for additional details and management. Dr. Riki MD
[2025-10-29] MEDS: AMIODARONE HCL 200 MG TABLET PO ×2 (10:40→20:08)
[2025-10-29] MEDS: LOSARTAN POTASSIUM 25 MG TABLET PO (10:41)
[2025-10-29] MEDS: METOPROLOL SUCCINATE XL 25 MG TABCR PO (10:41)
[2025-10-29] MEDS: RANOLAZINE 500 MG TABER (NON FORMULARY) PO ×2 (10:41→20:09)
[2025-10-29] MEDS: CLOPIDOGREL BISULFATE 75 MG TABLET PO (10:48)
--- NOTE | 2025-10-29 11:19 | PD.RESPRO ---
Documentation for date of: 10/29/25 Subjective Subjective Interval history: Patient is 70-year-old female with past medical history of coronary artery disease status post 6 stent placement, 2 to proximal LAD, 2 to the proximal and mid RCA in February 2024 at [facility], and another 2 stent placed in [facility] in 04/18/2024, history of paroxysmal A-fib, history of essential hypertension, hypothyroidism, arthritis, chronic back pain, presented to [facility] on 10/27/2025 with chief complaints of substernal chest pain that lasted about 30 minutes when she was using the bathroom. Patient stated that pain did not subsided with rest. Was associated with mild shortness of breath, dizziness, palpitation. Patient denied any nausea, vomiting, radiation to the back, neck or arm. Upon arrival to ED the symptoms has resolved. Patient is following , and dose of Eliquis was adjusted from 5 to 2.5 mg BID, patient also takes Plavix. Patient speaks Brent to, patient also requires assistance in her ADLs such as bathing and dressing. Patient also was complaining of constipation, and the symptoms mainly started at the bathroom when she was straining. In 04/18/24: LHC in [facility] Summary/findings: 1. Acute coronary syndrome: NSTEMI-peak troponin of 1.45 LHC showed 2 patent overlapping stents in the proximal LAD and 2 patent overlapping stents in the proximal RCA and severe 90% stenosis OM1 and severe 80 to 90% stenosis of the LCx. Rest of the arteries showed only minimal to mild disease. 2. LVEF is normal at 55 to 60%. LVEDP was slightly elevated at 18 mmHg. 3. Successful complex bifurcation PCI of the ostial and proximal OM1 with 2.5 x 12 mm Synergy with excellent results and JOSE-3 flow 4. Successful complex bifurcation PCI of the proximal LCx at the bifurcation of the OM1 with 2.75 x 16 mm Synergy WILLIAM stent with excellent results and JOSE-3 flow. Final kissing balloon inflation performed ED Course: -Initial vitals were BP 134/90 and HR 134 with afib with RvR -Labs significant for anemia with Hgb 9.7, initial troponin negative but repeat elevated to 0.109 -EKG showed afib with RvR at a rate of 137 -In the ED, patient was given metoprolol tartrate 5 mg IV x1 and converted to normal sinus rhythm, and aspirin 81 mg -Patient was admitted for NSTEMI type 1 versus type 2 Past medical history as above Past surgical history appendectomy as well as 6 ectomy and recent PCI at [facility] 3 weeks ago with 2 out of 4 stents, 2 stent on ostial and proximal OM1 , Proximal LCX at the bifurcation of the OM1. Medication, amiodarone, Eliquis 2.5 mg twice daily, atorvastatin 80 mg, Plavix 75 mg, levothyroxine 50 mg, metoprolol tartrate 25 mg every 12 hours, ranolazine 500 mg every 12 hours. Social history: Lives with the son here in [place] from [facility]. Patient denies any Smoking alcohol or drug abuse. Baseline patient is ADL and IADL independent except for chronic back pain and osteoarthritis as per the son who is at the bedside. Allergies: NKDA Travel history: None recently Family history significant for heart disease in the family and hypertension 10/28/25: Patient seen and examined at bedside. No acute overnight events. Labs and vitals are stable, patient continued to be on heparin and amiodarone drip, after completion the amiodarone GGT can be switched to amiodarone 200 mg twice daily, continue metoprolol 25 mg daily, continue current regimen with Plavix, atorvastatin. If patient continue to have any chest pain, tightness, we will consider LHC for that reason we will recommend to continue heparin drip for now. 10/29/2025: Patient was seen and examined at bedside no acute overnight events. Telemetry looks normal with no A-fib episodes. Labs and vitals are stable. Started on amiodarone 200 mg twice daily. She endorses she had a bowel movement yesterday and endorses feeling weak. Hemoglobin dropped from 9.7-8.9, magnesium 1.8. She denies any hematemesis, black/tarry stools. Exam Vital Signs Temp Pulse Resp BP Pulse Ox O2 Del Method O2 Flow Rate 97.7 F 61 18 174/69 H 97 Room Air 3 10/29/25 08:00 10/29/25 10:41 10/29/25 10:05 10/29/25 10:41 10/29/25 08:00 10/29/25 04:00 10/29/25 04:00 Objective Labs 10/29/25 07:20 10/29/25 07:20 Labs: Laboratory Results - last 24 hr 10/28/25 10/28/25 10/29/25 16:25 19:31 00:21 WBC RBC Hgb Hct MCV MCH MCHC RDW Std Deviation Plt Count Neut % (Auto) Lymph % (Auto) [place] % (Auto) Eos % (Auto) Baso % (Auto) Neut # (Auto) Lymph # (Auto) [place] # (Auto) Eos # (Auto) Baso # (Auto) Immature Gran # (Auto) Absolute Nucleated RBC Immature Gran % Nucleated RBC % PT INR APTT 45.5 H D 66.4 H D 62.9 H Sodium Potassium Chloride Carbon Dioxide Anion Gap BUN Creatinine Estim Creat Clear Calc eGFR BUN/Creatinine Ratio Glucose Calculated Osmolality Calcium Phosphorus Magnesium 10/29/25 07:20 WBC 3.6 RBC 2.76 L Hgb 8.9 L Hct 27.0 L MCV 98 MCH 32.2 MCHC 33.0 RDW Std Deviation 54.4 H Plt Count 262 Neut % (Auto) 52 Lymph % (Auto) 36 [place] % (Auto) 8 Eos % (Auto) 3 Baso % (Auto) 1 Neut # (Auto) 1.9 Lymph # (Auto) 1.3 [place] # (Auto) 0.3 Eos # (Auto) 0.1 Baso # (Auto) 0.0 Immature Gran # (Auto) 0.01 H Absolute Nucleated RBC 0.00 Immature Gran % 0 Nucleated RBC % 0 PT 11.4 INR 1.1 APTT 60.1 H Sodium 140 Potassium 4.2 Chloride 105 Carbon Dioxide 25.1 Anion Gap 10 BUN 22 Creatinine 1.2 Estim Creat Clear Calc 35.1 L eGFR 48 L BUN/Creatinine Ratio 18 Glucose 86 Calculated Osmolality 281 Calcium 8.9 Phosphorus 3.2 Magnesium 1.8 Quality Measures Quality Measures none Advance care planning discussed with:: patient Assessment & Plan Assessment Current Active Medications: Generic Name Dose Route Start Last Admin Trade Name Freq PRN Reason Stop Dose Admin Acetaminophen 650 mg 10/27/25 18:21 10/28/25 20:17 Acetaminophen 325 Mg Tablet PO 11/26/25 18:20 650 mg Q6H PRN Administration Fever >100.4 or Pain 1-3 Amiodarone HCl 200 mg 10/29/25 21:00 Amiodarone Hcl 200 Mg Tablet PO 11/28/25 20:59 BID TIFFANY Atorvastatin Calcium 80 mg 10/27/25 21:00 10/28/25 20:09 Atorvastatin Calcium 20 Mg Tablet PO 11/26/25 20:59 80 mg HS TIFFANY Administration Clopidogrel Bisulfate 75 mg 10/28/25 09:00 10/29/25 10:48 Clopidogrel Bisulfate 75 Mg Tablet PO 11/27/25 08:59 75 mg QDAY TIFFANY Administration Heparin Sodium/Dextrose 25,000 unit in 250 mls @ 7.272 mls/hr 10/27/25 18:45 10/29/25 01:15 Heparin In D5w Ivpb IV 11/10/25 18:44 9 units/kg/hr .Q24H TIFFANY 5.454 mls/hr Protocol Titration 12 UNITS/KG/HR Levothyroxine Sodium 50 mcg 10/28/25 06:45 10/29/25 06:22 Levothyroxine Sodium 25 Mcg Tablet PO 11/27/25 06:44 50 mcg ACBR TIFFANY Administration Losartan Potassium 25 mg 10/28/25 09:00 10/29/25 10:41 Losartan Potassium 25 Mg Tablet PO 11/27/25 08:59 25 mg QDAY TIFFANY Administration Magnesium Hydroxide 30 ml 10/28/25 06:45 Milk Of Magnesia Susp 30 Ml Udc PO 11/27/25 06:44 QDAY PRN CONSTIPATION Protocol Metoprolol Succinate 25 mg 10/27/25 18:45 10/29/25 10:41 Metoprolol Succinate Xl 25 Mg Tabcr PO 11/26/25 18:44 25 mg QDAY TIFFANY Administration Ondansetron HCl 4 mg 10/27/25 18:21 Ondansetron Inj 2 Mg/Ml Inj 2 Ml IVP 11/26/25 18:20 Q6H PRN NAUSEA OR VOMITING Protocol Ranolazine 500 mg 10/28/25 09:00 10/29/25 10:41 Ranolazine 500 Mg Vivian (Non Formulary) PO 11/27/25 08:59 500 mg Q12HR TIFFANY Administration Sennosides 2 tab 10/28/25 21:00 10/29/25 10:51 Senna/Docusate Sod 1 Tab Tablet PO 11/27/25 20:59 Not Given BID TIFFANY Protocol Plan Patient is 70-year-old female with past medical history of coronary artery disease status post 6 stent placement, 2 to proximal LAD, 2 to the proximal and mid RCA in February 2024 at [facility], and another 2 stent placed in [facility] in 04/18/2024, history of paroxysmal A-fib, history of essential hypertension, hypothyroidism, arthritis, chronic back pain was admitted for non-STEMI demand ischemia as well as A-fib with RVR treatment and management. Cardiology was consulted for further evaluation. 1. Non-STEMI/elevated troponin type I less likely, versus type II demand ischemia 2. Chronic A-fib with RVR on Eliquis 3. History of coronary artery disease status post 6 stent placement on Plavix 4. Essential hypertension 5. Hyperlipidemia 6. Hypothyroidism 7. Osteoarthritis. 8. Chronic back pain Patient presented to ED with substernal chest pain lasting about 30 minutes occurring while using the bathroom, pain did not subside with rest and was associated with shortness of breath, dizziness, palpitation. Patient has a history of non-STEMI, her coronary angiogram showed multivessel disease, status post multiple stent placement, left ventricular ejection fraction was normal 55 to 60%, Elevated troponin which currently downtrended, EKG showed A-fib with RVR at rate of 137 which successfully treated with metoprolol IV push, and patient converted to normal sinus rhythm. Given the elevated troponin, clinical presentation is most consistent with non-STEMI type II demand ischemia in the setting of A-fib with RVR, constipation(straining during bowel movement). Patient was placed on heparin drip On amiodarone drip In 04/18/24: LHC in [facility] Summary/findings: 1. Acute coronary syndrome: NSTEMI-peak troponin of 1.45 LHC showed 2 patent overlapping stents in the proximal LAD and 2 patent overlapping stents in the proximal RCA and severe 90% stenosis OM1 and severe 80 to 90% stenosis of the LCx. Rest of the arteries showed only minimal to mild disease. 2. LVEF is normal at 55 to 60%. LVEDP was slightly elevated at 18 mmHg. 3. Successful complex bifurcation PCI of the ostial and proximal OM1 with 2.5 x 12 mm Synergy with excellent results and JOSE-3 flow 4. Successful complex bifurcation PCI of the proximal LCx at the bifurcation of the OM1 with 2.75 x 16 mm Synergy WILLIAM stent with excellent results and JOSE-3 flow. Final kissing balloon inflation performed Recommendation Continue amiodarone 200 mg twice daily, continue heparin drip. Planning for cardiac catheterization tomorrow and keep n.p.o. overnight Continue metoprolol tartrate 25 mg every 12 hours Continue Plavix Hold Eliquis Continue heparin drip Continue statin 80 mg daily We will continue close monitor the patient's symptoms, vitals and cardiac enzyme. Planning for cardiac catheterization tomorrow to see any significant occlusions. Will see echo to rule out any wall dyskinesia, hypokinesia, to obtain LV and RV function Monitor blood pressure regularly, especially given the patient history of hypertension and current medication. Can continue ranolazine. Ordered multivitamin tablet at patient is feeling weak. Plan discussed with Dr. Joe Stark MD PGY1 Attending Provider Attestation/Addendum I have personally seen and examined the patient separately on the above date of service and discussed the plan of care with the resident. I reviewed the resident Dr. Jackeline Stark consultation progress note and agree with the resident findings and plan in the note above and have also edited the documentation to reflect my findings and plan. Patient well-known to me and follows with me in the office. Patient with significant CAD history with 16 placement 2 in the LAD, 2 in the RCA and 2 in the LCx and OM1 bifurcation by me during February and March 2024. Patient also has paroxysmal atrial fibrillation and is on anticoagulation and she is on Eliquis and Plavix. Patient generally is compliant with her medication but at times when she does not feel well she does not take her medication regularly as per the family and also not very compliant with her office visits 2. She came in as she had palpitations along with chest tightness as well as chest pressure while she was in the restroom and also had weakness & had to help her and bring her to the emergency department for further evaluation. She did have atrial fibrillation with RVR on presentation which improved with amiodarone and recommend to continue the same to complete the drip and eventually start the patient on amiodarone 200 mg twice daily along with metoprolol and she was only on amiodarone 200 mg once daily previously. Hold apixaban for now and start the patient on heparin drip in view of possible procedures. Echo showed normal LV function RV function EF of 60 to 65%. Initial EKG with atrial fibrillation with RVR showed significant ST depressions in multiple leads along with ST elevation in the aVR leads concerning for left main disease or less multivessel disease. Discussed all benefits and alternatives of performing a left heart cardiac attrition including risks of bleeding, heart attack, stroke and in detail. Patient agreeable for the procedure and we will plan for LHC on the Thursday morning Patient does complain of some constipation which she has been suffering for the past few days and recommend to give her magnesium citrate along with Colace and senna. Resolved now after the magnesium citrate. Management of rest of the medical conditions as per primary team and other consultants. Thank you for the consult and allowing me to participate in the care of the patient. Cardiology will continue to follow. Jorge Luis Diaz M.D. Interventional Cardiology
--- NOTE | 2025-10-29 12:48 | PC.SS ---
Tax Audit Manager (ALBINO) Renée met with the patient and son at bedside to complete an initial assessment and discuss a discharge plan. Patient is alert and oriented to person, place, time, and situation, and provided verbal consent to participate in the assessment with son. The patient has a past medical history of CAD with multivessel disease s/p six stents, hypertension, hypothyroidism, and afib on Eliquis, who presented to the ED on 10/27/2025 with an episode of central substernal chest pain lasting 30 minutes at home when she was using the bathroom. Patient speaks Hungarian/Brent. Son is at the bedside to translate. Patient is Anthony Geller, 70 y/o female residing with son at [address] [place] [address]. Patient designated her son, Damian Geller, , as her surrogate medical decision maker. Patient has [employer] hours; son is the caregiver. Patient is retired and receiving social security benefits. Patient reports baseline is independent with a FWW; patient is requesting a new FWW. Patient uses oxygen at home. Patient's PCP is Dr. Laura Foss. Patient's discharge plan is home with HH PT/RN; patient will need [employer] transportation. Surrogate medical decision maker: Son, Damian, Discharge plan: Home, will need [employer]. Is asking for FWW, HH PT and RN. Discharge rounds: On heparin drip, pending cardiology recs.
[2025-10-29] MEDS: MULTIVITAMINS TABLET 1 TAB PO (15:58)
[2025-10-29] MEDS: Heparin/D5w 25K 250 ML Ivpb 25,000 UNIT/250 ML BAG 5.454 UNIT IV (18:37)
[2025-10-29] MEDS: ATORVASTATIN CALCIUM 20 MG TABLET 80 MG PO (20:08)
[2025-10-29] MEDS: SENNA/DOCUSATE SOD 1 TAB TABLET 2 TAB PO (20:09)
[2025-10-30] VITALS (24 sets, daily range): BP systolic 116–188; BP diastolic 56–112; PULSE 50–91; RESP 13–98; TEMP 36–36.9; O2SAT 93–98; BMI 23.5
[2025-10-30 06:50] LABS: Basophils # (Auto) 0.0 Thou/mm3 (0.0-0.2); Basophils % (Auto) 1 % (0-2.5); Eosinophils # (Auto) 0.1 Thou/mm3 (0.0-0.5); Eosinophils % (Auto) 3 % (0-10); Hematocrit 27.8 % (36.0-46.0); Hemoglobin 9.3 g/dL (12.0-16.0); Immature Granulocytes Auto 0.00 Thou/mm3 (0.00-0.00); Lymphocytes # (Auto) 1.3 Thou/mm3 (1.0-4.8); Lymphocytes % (Auto) 35 % (10-50); Mean Corpuscular HGB Conc 33.5 g/dl (31.0-37.0); Mean Corpuscular Hemoglobin 32.2 pg (25.0-35.0); Mean Corpuscular Volume 96 fL (80-100); Monocytes # (Auto) 0.3 Thou/mm3 (0.0-0.8); Monocytes % (Auto) 7 % (0-12); Neutrophils # (Auto) 2.0 Thou/mm3 (1.8-7.7); Neutrophils % (Auto) 54 % (37-80); Nucleated Red Blood Cell # 0.00 Thou/mm3 (0.00-0.00); Nucleated Red Blood Cell % 0 /100 WBC (0); Platelet Count 263 Thou/mm3 (140-440); RDW Standard Deviation 52.8 fL (36.4-46.3); Red Blood Count 2.89 Miln/mm3 (4.00-5.20); White Blood Count 3.7 Thou/mm3 (3.6-11.0)
[2025-10-30 06:53] LABS: Anion Gap 8 (7-16); BUN/Creatinine Ratio 13 Ratio (12-20); Blood Urea Nitrogen 16 mg/dL (9-23); Calcium 9.6 mg/dL (8.3-10.6); Carbon Dioxide 25.6 mMol/L (20.0-31.0); Chloride 103 mMol/L (98-107); Creatinine (Component) 1.2 mg/dL (0.6-1.3); Estimated Creatinine Clearance 34.7 mL/min (>60); Glucose 79 mg/dL (74-106); Magnesium 1.7 mg/dL (1.6-2.6); Osmolality,Calculated 274 (275-295); Phosphorous 3.2 mg/dL (2.4-5.1); Potassium 4.7 mMol/L (3.4-5.1); Sodium 137 mMol/L (136-145); eGFR 48 See Note
[2025-10-30 07:08] LABS: INR 1.0 (0.9-1.3); Partial Thromboplastin Time 59.9 Seconds (22.0-36.0); Prothrombin Time 11.1 Seconds (9.0-12.2)
--- NOTE | 2025-10-30 08:33 | PD.RESPRO ---
Documentation for date of: 10/30/25 Subjective Subjective Interval history: Patient is 70-year-old female with past medical history of coronary artery disease status post 6 stent placement, 2 to proximal LAD, 2 to the proximal and mid RCA in February 2024 at [facility], and another 2 stent placed in [facility] in 04/18/2024, history of paroxysmal A-fib, history of essential hypertension, hypothyroidism, arthritis, chronic back pain, presented to [facility] on 10/27/2025 with chief complaints of substernal chest pain that lasted about 30 minutes when she was using the bathroom. Patient stated that pain did not subsided with rest. Was associated with mild shortness of breath, dizziness, palpitation. Patient denied any nausea, vomiting, radiation to the back, neck or arm. Upon arrival to ED the symptoms has resolved. Patient is following , and dose of Eliquis was adjusted from 5 to 2.5 mg BID, patient also takes Plavix. Patient speaks Brent to, patient also requires assistance in her ADLs such as bathing and dressing. Patient also was complaining of constipation, and the symptoms mainly started at the bathroom when she was straining. In 04/18/24: LHC in [facility] Summary/findings: 1. Acute coronary syndrome: NSTEMI-peak troponin of 1.45 LHC showed 2 patent overlapping stents in the proximal LAD and 2 patent overlapping stents in the proximal RCA and severe 90% stenosis OM1 and severe 80 to 90% stenosis of the LCx. Rest of the arteries showed only minimal to mild disease. 2. LVEF is normal at 55 to 60%. LVEDP was slightly elevated at 18 mmHg. 3. Successful complex bifurcation PCI of the ostial and proximal OM1 with 2.5 x 12 mm Synergy with excellent results and JOSE-3 flow 4. Successful complex bifurcation PCI of the proximal LCx at the bifurcation of the OM1 with 2.75 x 16 mm Synergy WILLIAM stent with excellent results and JOSE-3 flow. Final kissing balloon inflation performed ED Course: -Initial vitals were BP 134/90 and HR 134 with afib with RvR -Labs significant for anemia with Hgb 9.7, initial troponin negative but repeat elevated to 0.109 -EKG showed afib with RvR at a rate of 137 -In the ED, patient was given metoprolol tartrate 5 mg IV x1 and converted to normal sinus rhythm, and aspirin 81 mg -Patient was admitted for NSTEMI type 1 versus type 2 Past medical history as above Past surgical history appendectomy as well as 6 ectomy and recent PCI at [facility] 3 weeks ago with 2 out of 4 stents, 2 stent on ostial and proximal OM1 , Proximal LCX at the bifurcation of the OM1. Medication, amiodarone, Eliquis 2.5 mg twice daily, atorvastatin 80 mg, Plavix 75 mg, levothyroxine 50 mg, metoprolol tartrate 25 mg every 12 hours, ranolazine 500 mg every 12 hours. Social history: Lives with the son here in [place] from [facility]. Patient denies any Smoking alcohol or drug abuse. Baseline patient is ADL and IADL independent except for chronic back pain and osteoarthritis as per the son who is at the bedside. Allergies: NKDA Travel history: None recently Family history significant for heart disease in the family and hypertension 10/28/25: Patient seen and examined at bedside. No acute overnight events. Labs and vitals are stable, patient continued to be on heparin and amiodarone drip, after completion the amiodarone GGT can be switched to amiodarone 200 mg twice daily, continue metoprolol 25 mg daily, continue current regimen with Plavix, atorvastatin. If patient continue to have any chest pain, tightness, we will consider LHC for that reason we will recommend to continue heparin drip for now. 10/29/2025: Patient was seen and examined at bedside no acute overnight events. Telemetry looks normal with no A-fib episodes. Labs and vitals are stable. Started on amiodarone 200 mg twice daily. She endorses she had a bowel movement yesterday and endorses feeling weak. Hemoglobin dropped from 9.7-8.9, magnesium 1.8. She denies any hematemesis, black/tarry stools. 10/30/2025: Patient received left heart cardiac catheterization. LHC showed 2 patent overlapping stents in the proximal LAD and 2 patent overlapping stents in the proximal RCA, patent stent in ostial and proximal OM1, patent stent in proximal LCx at the bifurcation of the OM1. Rest of the arteries showed only minimal to mild disease. LVEF is normal at 55 to 60%. LVEDP was slightly elevated at 18 mmHg. Continue Aspirin 81mg po qd, Plavix 75mg po qd for 1 year. Continue coreg 3.125 mg po bid, Lipitor 80mg po qd. No weight lifting more than 5 to 10 lbs for next 1 week. then Follow up with 1-2 weeks once discharge. Currently on, Amiodarone 200mg po bid, Eliquis 2.5 mg bid, Atorvastatin 80mg po hs, Coreg 3.125 mg po bid, Plavix 75 mg po qd, Losartan 25 mg po qd Exam Vital Signs Temp Pulse Resp BP Pulse Ox O2 Del Method O2 Flow Rate 97.9 F 63 17 150/83 H 95 Room Air 3 10/30/25 07:49 10/30/25 07:49 10/30/25 07:49 10/30/25 07:49 10/30/25 07:49 10/30/25 07:49 10/29/25 04:00 Narrative Exam GENERAL: AAOx3 HEENT: Moist mucosa. Eyes open, symmetrical, & clear CARDIO: Rapid regular rhythm Noted. No Murmurs. PULM: No noted coughing/dyspnea CTA B/L, no R/W/R GI: Abdomen soft, nondistended, non Tender. SKIN/MSK/EXT: No wounds/rashes/amputations, no pain on palpation.No Edema. Pedal pulses present B/L NEURO: AAOx3, no focal neuro deficits, able to move all 4 extremities Objective Labs 10/31/25 07:21 10/31/25 07:21 Labs: Laboratory Results - last 24 hr 10/29/25 10/30/25 07:20 05:35 WBC 3.6 3.7 RBC 2.76 L 2.89 L Hgb 8.9 L 9.3 L Hct 27.0 L 27.8 L MCV 98 96 MCH 32.2 32.2 MCHC 33.0 33.5 RDW Std Deviation 54.4 H 52.8 H Plt Count 262 263 Neut % (Auto) 52 54 Lymph % (Auto) 36 35 [place] % (Auto) 8 7 Eos % (Auto) 3 3 Baso % (Auto) 1 1 Neut # (Auto) 1.9 2.0 Lymph # (Auto) 1.3 1.3 [place] # (Auto) 0.3 0.3 Eos # (Auto) 0.1 0.1 Baso # (Auto) 0.0 0.0 Immature Gran # (Auto) 0.01 H 0.00 Absolute Nucleated RBC 0.00 0.00 Immature Gran % 0 0 Nucleated RBC % 0 0 PT 11.4 11.1 INR 1.1 1.0 APTT 60.1 H 59.9 H Sodium 140 137 Potassium 4.2 4.7 D Chloride 105 103 Carbon Dioxide 25.1 25.6 Anion Gap 10 8 BUN 22 16 Creatinine 1.2 1.2 Estim Creat Clear Calc 35.1 L 34.7 L eGFR 48 L 48 L BUN/Creatinine Ratio 18 13 Glucose 86 79 Calculated Osmolality 281 274 L Calcium 8.9 9.6 Phosphorus 3.2 3.2 Magnesium 1.8 1.7 Blood Type B Positive Antibody Screen NEGATIVE Blood Bank Wristband ID Yes Quality Measures Quality Measures none Advance care planning discussed with:: patient and other Assessment & Plan Assessment Current Active Medications: Generic Name Dose Route Start Last Admin Trade Name Freq PRN Reason Stop Dose Admin Acetaminophen 650 mg 10/27/25 18:21 10/28/25 20:17 Acetaminophen 325 Mg Tablet PO 11/26/25 18:20 650 mg Q6H PRN Administration Fever >100.4 or Pain 1-3 Amiodarone HCl 200 mg 10/29/25 21:00 10/29/25 20:08 Amiodarone Hcl 200 Mg Tablet PO 11/28/25 20:59 200 mg BID TIFFANY Administration Atorvastatin Calcium 80 mg 10/27/25 21:00 10/29/25 20:08 Atorvastatin Calcium 20 Mg Tablet PO 11/26/25 20:59 80 mg HS TIFFANY Administration Clopidogrel Bisulfate 75 mg 10/28/25 09:00 10/29/25 10:48 Clopidogrel Bisulfate 75 Mg Tablet PO 11/27/25 08:59 75 mg QDAY TIFFANY Administration Heparin Sodium/Dextrose 25,000 unit in 250 mls @ 7.272 mls/hr 10/27/25 18:45 10/30/25 08:05 Heparin In D5w Ivpb IV 11/10/25 18:44 0 units/kg/hr .Q24H TIFFANY 0 mls/hr Protocol Titration 12 UNITS/KG/HR Levothyroxine Sodium 50 mcg 10/28/25 06:45 10/30/25 05:55 Levothyroxine Sodium 25 Mcg Tablet PO 11/27/25 06:44 Not Given ACBR TIFFANY Losartan Potassium 25 mg 10/28/25 09:00 10/29/25 10:41 Losartan Potassium 25 Mg Tablet PO 11/27/25 08:59 25 mg QDAY TIFFANY Administration Magnesium Hydroxide 30 ml 10/28/25 06:45 Milk Of Magnesia Susp 30 Ml Udc PO 11/27/25 06:44 QDAY PRN CONSTIPATION Protocol Metoprolol Succinate 25 mg 10/27/25 18:45 10/29/25 10:41 Metoprolol Succinate Xl 25 Mg Tabcr PO 11/26/25 18:44 25 mg QDAY TIFFANY Administration Multivitamins 1 tab 10/29/25 15:45 10/29/25 15:58 Multivitamins Tablet PO 11/28/25 15:44 1 tab QDAY TIFFANY Administration Ondansetron HCl 4 mg 10/27/25 18:21 Ondansetron Inj 2 Mg/Ml Inj 2 Ml IVP 11/26/25 18:20 Q6H PRN NAUSEA OR VOMITING Protocol Ranolazine 500 mg 10/28/25 09:00 10/29/25 20:09 Ranolazine 500 Mg Vivian (Non Formulary) PO 11/27/25 08:59 500 mg Q12HR TIFFANY Administration Sennosides 2 tab 10/28/25 21:00 10/29/25 20:09 Senna/Docusate Sod 1 Tab Tablet PO 11/27/25 20:59 2 tab BID TIFFANY Administration Protocol Plan Patient is 70-year-old female with past medical history of coronary artery disease status post 6 stent placement, 2 to proximal LAD, 2 to the proximal and mid RCA in February 2024 at [facility], and another 2 stent placed in [facility] in 04/18/2024, history of paroxysmal A-fib, history of essential hypertension, hypothyroidism, arthritis, chronic back pain was admitted for non-STEMI demand ischemia as well as A-fib with RVR treatment and management. Cardiology was consulted for further evaluation. 1. Non-STEMI/elevated troponin type I less likely, versus type II demand ischemia 2. Chronic A-fib with RVR on Eliquis 3. History of coronary artery disease status post 6 stent placement on Plavix 4. Essential hypertension 5. Hyperlipidemia 6. Hypothyroidism 7. Osteoarthritis. 8. Chronic back pain Patient presented to ED with substernal chest pain lasting about 30 minutes occurring while using the bathroom, pain did not subside with rest and was associated with shortness of breath, dizziness, palpitation. Patient has a history of non-STEMI, her coronary angiogram showed multivessel disease, status post multiple stent placement, left ventricular ejection fraction was normal 55 to 60%, Elevated troponin which currently downtrended, EKG showed A-fib with RVR at rate of 137 which successfully treated with metoprolol IV push, and patient converted to normal sinus rhythm. Given the elevated troponin, clinical presentation is most consistent with non-STEMI type II demand ischemia in the setting of A-fib with RVR, constipation(straining during bowel movement). Patient was placed on heparin drip On amiodarone drip In 04/18/24: C in [facility] Summary/findings: 1. Acute coronary syndrome: NSTEMI-peak troponin of 1.45 [facility] showed 2 patent overlapping stents in the proximal LAD and 2 patent overlapping stents in the proximal RCA and severe 90% stenosis OM1 and severe 80 to 90% stenosis of the LCx. Rest of the arteries showed only minimal to mild disease. 2. LVEF is normal at 55 to 60%. LVEDP was slightly elevated at 18 mmHg. 3. Successful complex bifurcation PCI of the ostial and proximal OM1 with 2.5 x 12 mm Synergy with excellent results and JOSE-3 flow 4. Successful complex bifurcation PCI of the proximal LCx at the bifurcation of the OM1 with 2.75 x 16 mm Synergy WILLIAM stent with excellent results and JOSE-3 flow. Final kissing balloon inflation performed Recommendation - [facility] on 10/30/2025 showed all 6 stents were patent. 2 patent overlapping stents in the proximal LAD and 2 patent overlapping stents in the proximal RCA, patent stent in ostial and proximal OM1, patent stent in proximal LCx at the bifurcation of the OM1. Rest of the arteries showed only minimal to mild disease. -LVEF is normal at 55 to 60%. LVEDP was slightly elevated at 18 mmHg. -Continue Aspirin 81mg po qd, Plavix 75mg po qd for 1 year. -Continue coreg 3.125 mg po bid, Lipitor 80mg po qd. -No weight lifting more than 5 to 10 lbs for next 1 week. then Follow up with 1-2 weeks once discharge. -Currently on, Amiodarone 200mg po bid, Eliquis 2.5 mg bid, Atorvastatin 80mg po hs, Coreg 3.125 mg po bid, Plavix 75 mg po qd, Losartan 25 mg po qd Monitor blood pressure regularly, especially given the patient history of hypertension and current medication. Can continue ranolazine. Ordered multivitamin tablet at patient is feeling weak. Assessment and plan discussed with my attending physician Dr. Joe Paula (PGY-1) - Internal medicine resident Attending Provider Attestation/Addendum I have personally seen and examined the patient separately on the above date of service and discussed the plan of care with the resident. I reviewed the resident Dr. Enrico Paula consultation progress note and agree with the resident findings and plan in the note above and have also edited the documentation to reflect my findings and plan. Jorge Luis Diaz M.D. Interventional Cardiology
--- NOTE | 2025-10-30 09:31 | PC.SS ---
Update: Cardiac catheter placement pending.
--- NOTE | 2025-10-30 10:16 | PD.RESPRO ---
Documentation for date of: 10/30/25 Exam Vital Signs Temp Pulse Resp BP Pulse Ox O2 Del Method O2 Flow Rate 96.8 F 54 L 21 H 156/80 H 95 Room Air 3 10/30/25 09:38 10/30/25 10:00 10/30/25 10:00 10/30/25 10:00 10/30/25 10:00 10/30/25 10:00 10/29/25 04:00 Objective Labs 10/30/25 05:35 10/30/25 05:35 Labs: Laboratory Results - last 24 hr 10/30/25 05:35 WBC 3.7 RBC 2.89 L Hgb 9.3 L Hct 27.8 L MCV 96 MCH 32.2 MCHC 33.5 RDW Std Deviation 52.8 H Plt Count 263 Neut % (Auto) 54 Lymph % (Auto) 35 [place] % (Auto) 7 Eos % (Auto) 3 Baso % (Auto) 1 Neut # (Auto) 2.0 Lymph # (Auto) 1.3 [place] # (Auto) 0.3 Eos # (Auto) 0.1 Baso # (Auto) 0.0 Immature Gran # (Auto) 0.00 Absolute Nucleated RBC 0.00 Immature Gran % 0 Nucleated RBC % 0 PT 11.1 INR 1.0 APTT 59.9 H Sodium 137 Potassium 4.7 D Chloride 103 Carbon Dioxide 25.6 Anion Gap 8 BUN 16 Creatinine 1.2 Estim Creat Clear Calc 34.7 L eGFR 48 L BUN/Creatinine Ratio 13 Glucose 79 Calculated Osmolality 274 L Calcium 9.6 Phosphorus 3.2 Magnesium 1.7 Blood Type B Positive Antibody Screen NEGATIVE Blood Bank Wristband ID Yes Quality Measures Quality Measures none Assessment & Plan Assessment Current Active Medications: Generic Name Dose Route Start Last Admin Trade Name Freq PRN Reason Stop Dose Admin Acetaminophen 650 mg 10/27/25 18:21 10/28/25 20:17 Acetaminophen 325 Mg Tablet PO 11/26/25 18:20 650 mg Q6H PRN Administration Fever >100.4 or Pain 1-3 Amiodarone HCl 200 mg 10/29/25 21:00 10/29/25 20:08 Amiodarone Hcl 200 Mg Tablet PO 11/28/25 20:59 200 mg BID TIFFANY Administration Atorvastatin Calcium 80 mg 10/27/25 21:00 10/29/25 20:08 Atorvastatin Calcium 20 Mg Tablet PO 11/26/25 20:59 80 mg HS TIFFANY Administration Clopidogrel Bisulfate 75 mg 10/28/25 09:00 10/29/25 10:48 Clopidogrel Bisulfate 75 Mg Tablet PO 11/27/25 08:59 75 mg QDAY TIFFANY Administration Levothyroxine Sodium 50 mcg 10/28/25 06:45 10/30/25 05:55 Levothyroxine Sodium 25 Mcg Tablet PO 11/27/25 06:44 Not Given ACBR TIFFANY Losartan Potassium 25 mg 10/28/25 09:00 10/29/25 10:41 Losartan Potassium 25 Mg Tablet PO 11/27/25 08:59 25 mg QDAY TIFFANY Administration Magnesium Hydroxide 30 ml 10/28/25 06:45 Milk Of Magnesia Susp 30 Ml Udc PO 11/27/25 06:44 QDAY PRN CONSTIPATION Protocol Metoprolol Succinate 25 mg 10/27/25 18:45 10/29/25 10:41 Metoprolol Succinate Xl 25 Mg Tabcr PO 11/26/25 18:44 25 mg QDAY TIFFANY Administration Multivitamins 1 tab 10/29/25 15:45 10/29/25 15:58 Multivitamins Tablet PO 11/28/25 15:44 1 tab QDAY TIFFANY Administration Ondansetron HCl 4 mg 10/27/25 18:21 Ondansetron Inj 2 Mg/Ml Inj 2 Ml IVP 11/26/25 18:20 Q6H PRN NAUSEA OR VOMITING Protocol Ranolazine 500 mg 10/28/25 09:00 10/29/25 20:09 Ranolazine 500 Mg Vivian (Non Formulary) PO 11/27/25 08:59 500 mg Q12HR TIFFANY Administration Sennosides 2 tab 10/28/25 21:00 10/29/25 20:09 Senna/Docusate Sod 1 Tab Tablet PO 11/27/25 20:59 2 tab BID TIFFANY Administration Protocol
[2025-10-30] MEDS: SENNA/DOCUSATE SOD 1 TAB TABLET 2 TAB PO (10:32)
[2025-10-30] MEDS: LOSARTAN POTASSIUM 25 MG TABLET PO (10:33)
[2025-10-30] MEDS: AMIODARONE HCL 200 MG TABLET PO (10:33)
[2025-10-30] MEDS: RANOLAZINE 500 MG TABER (NON FORMULARY) PO (10:33)
[2025-10-30] MEDS: MULTIVITAMINS TABLET 1 TAB PO (10:33)
[2025-10-30] MEDS: CLOPIDOGREL BISULFATE 75 MG TABLET PO (10:34)
[2025-10-30] MEDS: METOPROLOL SUCCINATE XL 25 MG TABCR PO (10:34)
--- NOTE | 2025-10-30 11:45 | PC.NURSE ---
hand off report given to chika crespo
--- NOTE | 2025-10-30 12:14 | PD.CARDCATH ---
Cardiac Cath Procedure Procedure Name PROCEDURE PERFORMED: 1. Left heart cardiac catheterization including right, left coronary angiograms and left ventriculogram 2. Ultrasound-guided access of the right radial artery 3. Conscious sedation for 60 minutes DATA MANAGEMENT SPECIALIST: Jorge Luis Diaz MD Procedure Narrative HISTORY AND INDICATIONS: A 70-year-old female with a past medical history of CAD s/p 4 stents 2 to the proximal LAD, 2 to the proximal and mid RCA in February 2024, PCI to LCX and OM1 on 03/2024 paroxysmal atrial fibrillation diagnosed in 2021, history of CAD with severe 90% stenosis of the ostial and proximal OM1 and 80 to 90% stenosis of the proximal to mid LCx, essential hypertension, hypothyroidism, history arthritis, chronic back pain presented to the emergency department for further evaluation of chest pain. Patient was recommended urgent left heart cardiac catheterization. All risk benefits and alternatives of cardiac catheterization were explained to the patient in detail including the risk of bleeding, stroke, heart attack and . Patient agreeable for the procedure and provided consent for the same. Patient brought to the cardiac catheterization lab for further evaluation with [facility] and possible PCI. DESCRIPTION OF PROCEDURE: The patient was brought to the cardiac catheterization lab analysis the precautions were followed. Patient was given 1 Mg of Versed and 50 mcg of fentanyl for moderate conscious sedation. 2 mL of lidocaine was given in the right wrist. The right radial artery was accessed via the ultrasound guidance as well as micropuncture technique. A 6 [place] glide sheath was introduced. We then used a 6 [place] TIG 4 catheter to perform the left and right coronary angiogram as well as a left ventriculogram which showed the following findings. 1. Left main was a large-caliber vessel and long vessel with mild disease 2. Right dominant circumflex circulation 3. LAD is a large sized with wraparound artery with 2 patent overlapping stents in the proximal and mid LAD and diagonal show only mild disease 4. LCx is a large sized artery with patent stent in proximal to mid LCx at the bifurcation of the OM1 involving the ostium and proximal OM1 with patent stent. 5. RCA is a medium to large size artery with patent stents in the proximal and mid RCA and rest of the RCA including the RPL show mild disease. INTERVENTION: A 6 [place] VL 3.5 guide was used to engage the left main artery. Patient was given weight-based heparin and ACT was greater than 250 although the procedure. Run-through guidewire was used to cross the lesion in the proximal OM1 without any complications. We then used an 2.25x12 mm [place] semicompliant balloon and predilated the proximal OM1 x 2 at 8 and 10 meghana and also the proximal disease at the bifurcation. We then used a 2.75 x 15 mm semicompliant balloon and inflated proximal and mid LCx at the bifurcation of the OM1. Will obtain 2.75 mm balloon in the mid to distal LCx. 2.5 x 12 mm Synergy WILLIAM stent was placed from the ostium to the proximal OM1 and inflated at 12 meghana initially and then at 14 and 15 meghana for a total of 45 seconds with simultaneous inflation of the 2.75 x 15 mm semicompliant balloon. We then deployed a 2.75 x 16 mm mm Synergy WILLIAM stent at 12 meghana and 15 meghana in the proximal to mid LCx and prior to the deployment of the stent human bite was removed so that it would not be jailed. We then used a 3.0 x 8 mm balloon at 14 meghana to do the proximal optimization technique. We then used a new run-through wire and cross the OM1. We then performed a final kissing balloon inflation of the LCx and OM stents with a 2.5 and 2.2 balloons respectively. Excellent results with JOSE-3 flow were noted and there were no complications. Patient was already on Plavix and aspirin and was given additional 300 mg of Plavix during the procedure. A radial band was used to achieve the hemostasis of the right radial artery access. Patient will be monitored in the cardiac [place] for the next 2 to 3 hours and will be transferred to the telemetry floor. Complications: None Specimens: None Blood loss: Estimated 10 ML Summary/findings: 1. NSTEMI: [facility] on 10/30/2025 showed all 6 stents with patent with no in-stent restenosis-2 patent overlapping stents in the proximal LAD and 2 patent overlapping stents in the proximal RCA, patent stent in ostial and proximal OM1, patent stent in proximal LCx at the bifurcation of the OM1. Rest of the arteries showed only minimal to mild disease. 2. LVEF is normal at 55 to 60%. LVEDP was slightly elevated at 18 mmHg. Recommendations: 1. Recommended dual antiplatelet therapy with aspirin 81 mg once daily lifetime and plavix 75 mg daily for at least 1 year. Continue Coreg as well as high intensity statin Lipitor 80 mg once daily 2. Recommend aggressive risk factor modification 3. Patient recommended not to lift any weight more than 5 to 10 pounds for the next 7 days and follow-up in my office in 1 to 2 weeks Jorge Luis Diaz MD Interventional Cardiology.
--- NOTE | 2025-10-30 14:53 | PC.SS ---
Rounding Note: Cardiology recommendations are pending. Possible d/c later today if medically cleared.
--- NOTE | 2025-10-30 16:45 | PD.RESDS ---
Planned Discharge Date 10/30/25 DS: Providers Provider Date of admission: 10/27/25 18:21 Primary care physician: THA King Admitting Provider: Curly Lyn MD Attending Provider on Admission: Curly Lyn MD Consults: 10/27/25 21:47 Consult to Cardiology Routine Comment: NSTEMI Consulting Provider: Jorge Luis Diaz Attending Provider on DC: Ajay Queen MD Discharging Provider: Ajay Queen MD Hospital Course Hospital Course Hospital course: Patient is 70-year-old female with past medical history of coronary artery disease status post 6 stent placement, 2 to proximal LAD, 2 to the proximal and mid RCA in February 2024 at [facility], and another 2 stent placed in [facility] in 04/18/2024, history of paroxysmal A-fib, history of essential hypertension, hypothyroidism, arthritis, chronic back pain, presented to [facility] on 10/27/2025 with chief complaints of substernal chest pain that lasted about 30 minutes when she was using the bathroom. Patient stated that pain did not subsided with rest. Was associated with mild shortness of breath, dizziness, palpitation. Patient denied any nausea, vomiting, radiation to the back, neck or arm. Upon arrival to ED the symptoms has resolved. Patient is following , and dose of Eliquis was adjusted from 5 to 2.5 mg BID, patient also takes Plavix. Patient speaks Brent to, patient also requires assistance in her ADLs such as bathing and dressing. Patient also was complaining of constipation, and the symptoms mainly started at the bathroom when she was straining. In 04/18/24: LHC in [facility] Summary/findings: 1. Acute coronary syndrome: NSTEMI-peak troponin of 1.45 LHC showed 2 patent overlapping stents in the proximal LAD and 2 patent overlapping stents in the proximal RCA and severe 90% stenosis OM1 and severe 80 to 90% stenosis of the LCx. Rest of the arteries showed only minimal to mild disease. 2. LVEF is normal at 55 to 60%. LVEDP was slightly elevated at 18 mmHg. 3. Successful complex bifurcation PCI of the ostial and proximal OM1 with 2.5 x 12 mm Synergy with excellent results and JOSE-3 flow 4. Successful complex bifurcation PCI of the proximal LCx at the bifurcation of the OM1 with 2.75 x 16 mm Synergy WILLAIM stent with excellent results and JOSE-3 flow. Final kissing balloon inflation performed ED Course: -Initial vitals were BP 134/90 and HR 134 with afib with RvR -Labs significant for anemia with Hgb 9.7, initial troponin negative but repeat elevated to 0.109 -EKG showed afib with RvR at a rate of 137 -In the ED, patient was given metoprolol tartrate 5 mg IV x1 and converted to normal sinus rhythm, and aspirin 81 mg -Patient was admitted for NSTEMI type 1 versus type 2 Past medical history as above Past surgical history appendectomy as well as 6 ectomy and recent PCI at [facility] 3 weeks ago with 2 out of 4 stents, 2 stent on ostial and proximal OM1 , Proximal LCX at the bifurcation of the OM1. Medication, amiodarone, Eliquis 2.5 mg twice daily, atorvastatin 80 mg, Plavix 75 mg, levothyroxine 50 mg, metoprolol tartrate 25 mg every 12 hours, ranolazine 500 mg every 12 hours. Social history: Lives with the son here in [place] from [facility]. Patient denies any Smoking alcohol or drug abuse. Baseline patient is ADL and IADL independent except for chronic back pain and osteoarthritis as per the son who is at the bedside. Allergies: NKDA Travel history: None recently Family history significant for heart disease in the family and hypertension 10/28/25: Patient seen and examined at bedside. No acute overnight events. Labs and vitals are stable, patient continued to be on heparin and amiodarone drip, after completion the amiodarone GGT can be switched to amiodarone 200 mg twice daily, continue metoprolol 25 mg daily, continue current regimen with Plavix, atorvastatin. If patient continue to have any chest pain, tightness, we will consider [facility] for that reason we will recommend to continue heparin drip for now. 10/29/2025: Patient was seen and examined at bedside no acute overnight events. Telemetry looks normal with no A-fib episodes. Labs and vitals are stable. Started on amiodarone 200 mg twice daily. She endorses she had a bowel movement yesterday and endorses feeling weak. Hemoglobin dropped from 9.7-8.9, magnesium 1.8. She denies any hematemesis, black/tarry stools. Time Spent with Patient Time attestation: Total time spent providing and/or coordinating discharge services: Exam Vital Signs Temp Pulse Resp BP Pulse Ox O2 Del Method O2 Flow Rate 97.0 F 60 16 181/91 H 96 Room Air 3 10/30/25 12:00 10/30/25 12:00 10/30/25 12:00 10/30/25 12:00 10/30/25 12:00 10/30/25 11:30 10/29/25 04:00 Discharge Plan Plan Patient Disposition: HOME (Self Care) Care Plan Goals: Discharge Instructions: -Continue Plavix 75 mg daily -Continue Eliquis 2.5 mg twice daily -Continue Atorvastatin 80 mg daily -Start Coreg (Carvedilol) 3.125 mg twice daily -Stop home med Metoprolol. -Continue all home meds as prescribed -Activity: No lifting >5?10 pounds for 7 days post-cath -Follow-up with Cardiology in 1?2 weeks -Follow up with PCP within 1/2 weeks -Diet: Cardiac diet as tolerated, encourage healthy eating -Wound Care: Keep right radial access site clean and dry, monitor for signs of infection (redness, swelling) -Return to ED if signs of worsening chest pain, palpitations, or access-site bleeding -Rest: Avoid excessive physical exertion; gradual increase in activity as tolerated Prescriptions/Referrals Prescriptions/Med Rec: New carvedilol [Coreg] 3.125 mg tablet 3.125 mg PO BID Qty: 60 0RF Rx Instructions: must administer with a meal/food Continued clopidogrel 75 mg Tablet 75 mg PO QDAY Qty: 30 0RF amiodarone 200 mg tablet 200 mg PO BID Qty: 60 0RF multivitamin Tablet 1 tab PO DAILY Patient Comments: TAKE ONE TABLET BY MOUTH EVERY DAY Eliquis 2.5 mg tablet 2.5 mg PO Q12H levothyroxine 50 mcg tablet 50 mcg PO .am ranolazine 500 mg tablet extended release 12 hr 500 mg PO Q12H atorvastatin 80 mg tablet 80 mg PO HS Patient Comments: TAKE ONE TABLET BY MOUTH AT BEDTIME FOR CHOLESTEROL losartan 25 mg tablet 25 mg PO DAILY Patient Comments: TAKE ONE TABLET BY MOUTH EVERY DAY FOR BLOOD PRESSURE Discontinued losartan 50 mg tablet 50 mg PO QDAY Qty: 30 0RF apixaban 5 mg tablet 5 mg PO BID Qty: 60 0RF metoprolol tartrate 25 mg tablet 25 mg PO Q12H Referrals: Laura Foss FNP [Primary Care Provider] Patient/Caregiver Discharge Instructions Education Materials: AFL/Afib, Heart Failure Signs of Flare-Up, Recognizing a Heart Attack or Angina, Your Recovery Plan, Your Heart Risk Action Plan Print Language: Belarusian Stand Alone Forms: [employer] Award Info., Patient Portal Info Letter
--- NOTE | 2025-10-30 16:53 | ESPR_ITS ---
Documentation for date of: 10/30/25 Subjective Subjective Interval history: Patient was taken to the [facility] this morning for left heart catheterization (LHC) with possible PCI. Procedure completed successfully without complications. Post-procedure: Patient reports no chest pain, palpitations, or shortness of breath. She feels stable and prefers to stay another night for observation. No new symptoms after the procedure. No bleeding, hematoma, or access-site pain at the right radial artery access point. Exam Vital Signs Temp Pulse Resp BP Pulse Ox O2 Del Method O2 Flow Rate 97.2 F 66 16 188/83 H 93 L Room Air 3 10/30/25 16:00 10/30/25 16:00 10/30/25 16:00 10/30/25 16:00 10/30/25 16:00 10/30/25 16:00 10/29/25 04:00 Narrative Exam General: Awake. HEENT: Normocephalic, atraumatic, mucous membranes moist. Heart: Regular rate and rhythm, no murmurs. Lungs: Clear to auscultation with no wheezing or crackles. Abdomen: Soft, nondistended, nontender, positive bowel sounds. ?No guarding or rebound tenderness. Neurologic: Alert and oriented x3, no gross neurological deficit, and patient able to move all 4 extremities. Extremities: No edema. Skin: No rash or ecchymoses. Objective Labs 10/31/25 07:21 10/31/25 07:21 Labs: Laboratory Results - last 24 hr 10/30/25 05:35 WBC 3.7 RBC 2.89 L Hgb 9.3 L Hct 27.8 L MCV 96 MCH 32.2 MCHC 33.5 RDW Std Deviation 52.8 H Plt Count 263 Neut % (Auto) 54 Lymph % (Auto) 35 Mineral % (Auto) 7 Eos % (Auto) 3 Baso % (Auto) 1 Neut # (Auto) 2.0 Lymph # (Auto) 1.3 Mineral # (Auto) 0.3 Eos # (Auto) 0.1 Baso # (Auto) 0.0 Immature Gran # (Auto) 0.00 Absolute Nucleated RBC 0.00 Immature Gran % 0 Nucleated RBC % 0 PT 11.1 INR 1.0 APTT 59.9 H Sodium 137 Potassium 4.7 D Chloride 103 Carbon Dioxide 25.6 Anion Gap 8 BUN 16 Creatinine 1.2 Estim Creat Clear Calc 34.7 L eGFR 48 L BUN/Creatinine Ratio 13 Glucose 79 Calculated Osmolality 274 L Calcium 9.6 Phosphorus 3.2 Magnesium 1.7 Blood Type B Positive Antibody Screen NEGATIVE Blood Bank Wristband ID Yes Quality Measures Quality Measures VTE therapy Advance care planning discussed with:: patient Assessment & Plan Assessment Current Active Medications: Generic Name Dose Route Start Last Admin Trade Name Freq PRN Reason Stop Dose Admin Acetaminophen 650 mg 10/27/25 18:21 10/28/25 20:17 Acetaminophen 325 Mg Tablet PO 11/26/25 18:20 650 mg Q6H PRN Administration Fever >100.4 or Pain 1-3 Amiodarone HCl 200 mg 10/29/25 21:00 10/30/25 10:33 Amiodarone Hcl 200 Mg Tablet PO 11/28/25 20:59 200 mg BID TIFFANY Administration Atorvastatin Calcium 80 mg 10/27/25 21:00 10/29/25 20:08 Atorvastatin Calcium 20 Mg Tablet PO 11/26/25 20:59 80 mg HS TIFFANY Administration Carvedilol 3.125 mg 10/30/25 17:30 Carvedilol 3.125 Mg Tablet PO 11/29/25 17:29 BIDWM TIFFANY Clopidogrel Bisulfate 75 mg 10/28/25 09:00 10/30/25 10:34 Clopidogrel Bisulfate 75 Mg Tablet PO 11/27/25 08:59 75 mg QDAY TIFFANY Administration Levothyroxine Sodium 50 mcg 10/28/25 06:45 10/30/25 05:55 Levothyroxine Sodium 25 Mcg Tablet PO 11/27/25 06:44 Not Given ACBR TIFFANY Losartan Potassium 25 mg 10/28/25 09:00 10/30/25 10:33 Losartan Potassium 25 Mg Tablet PO 11/27/25 08:59 25 mg QDAY TIFFANY Administration Magnesium Hydroxide 30 ml 10/28/25 06:45 Milk Of Magnesia Susp 30 Ml Udc PO 11/27/25 06:44 QDAY PRN CONSTIPATION Protocol Multivitamins 1 tab 10/29/25 15:45 10/30/25 10:33 Multivitamins Tablet PO 11/28/25 15:44 1 tab QDAY TIFFANY Administration Ondansetron HCl 4 mg 10/27/25 18:21 Ondansetron Inj 2 Mg/Ml Inj 2 Ml IVP 11/26/25 18:20 Q6H PRN NAUSEA OR VOMITING Protocol Ranolazine 500 mg 10/28/25 09:00 10/30/25 10:33 Ranolazine 500 Mg Vivian (Non Formulary) PO 11/27/25 08:59 500 mg Q12HR TIFFANY Administration Sennosides 2 tab 10/28/25 21:00 10/30/25 10:32 Senna/Docusate Sod 1 Tab Tablet PO 11/27/25 20:59 2 tab BID TIFFANY Administration Protocol Plan 70-year-old Bengali/Brent-speaking female with multivessel CAD s/p 6 stents, paroxysmal AFib, and NSTEMI, now post-PCI with stable hemodynamics, normal EF, and excellent stent deployment with JOSE-3 flow. Patient remains stable on telemetry, cleared by cardiology, and prefers to stay another night for monitoring. #NSTEMI, type 1 versus type 2 #History of CAD with multivessel disease s/p 6 stents Stable post cath LHC showed patent stents in LAD, RCA, LCX, OM1. JOSE-3 flow achieved, no complications. No further ischemic symptoms. Cardiology cleared patient for discharge Plan: * Continue Plavix 75 mg daily * Continue Eliquis 2.5 mg BID * Continue Atorvastatin 80 mg daily * Monitor telemetry for arrhythmias overnight * Start Coreg (Carvedilol) 3.125 mg PO BID * Stop metoprolol and swithced to coreg per cardiology * Follow up with cardiology in 1?2 weeks for outpatient check #Paroxysmal AFib Patient arrived to ED in afib with RvR and converted after given metoprolol tartrate IV 5 mg x1. Patient has known history and is on Eliquis 2.5 mg BID, recently reduced by game trapper. Eliquis resumed post-cath, monitoring for arrhythmias. Currently NSR Plan: * Continue amiodarone 200 mg BID * Start coreg 3.125 mg BID * Maintain K >4.0, Mg >2.0 #Essential Hypertension BP controlled on losartan 25 mg PO daily. Post cath patient bp was 181/78 gave one time order of cardizem 60 mg. Plan: * Continue losartan 25 mg PO daily * Monitor BP trends on telemetry, adjust if needed #Hypothyroidism TSH 26.69, FT4 0.56, no clinical myxedema features, continue treatment. Plan: * Continue levothyroxine 50 mcg PO daily * Outpatient follow-up with PCP for TSH/FT4 titration. #Anemia of chronic disease, stable No signs of bleeding; Hgb 9.3 above threshold for transfusion. Plan: * Transfuse if Hgb drops below 8.0 or patient symptomatic #Constipation, resolved Abdomen soft, non-tender, no distension. Plan: * Continue oral bowel regimen as needed Health Maintenance: Disposition: Telemetry floor for overnight monitoring Feeding: Cardiac diet as tolerated Thromboprophylaxis: Eliquis GI prophylaxis: Not indicated Code Status: FULL (confirmed with family) Reason for hospitalization: NSTEMI ----- Plan discussed with attending physician Dr. Riki Queen MD PGY-1 Internal Medicine Attending Provider Attestation/Addendum I have examined the patient, reviewed labs and imaging findings, discussed the case with the resident(s), and reviewed entered orders. I agree with the plan of care as outlined in this note, with these additional summaries/recommendations: Patient is a 70-year-old female with a medical history of CAD s/p multiple stents (6), primary hypertension, hypothyroidism, chronic atrial fibrillation, dyslipidemia, and osteoarthritis presents to [facility] emergency department on 10/27/2025 with chief complaint of substernal chest pain. Patient seen at bedside after cardiac catheterization. No acute overnight events. Patient was noted to be vomiting after returning from cardiac [facility] and we will continue IV antiemetics. Left heart cath showed patent stents in minimal/mild disease in nondistended arteries. LVEF 55 to 60%. Per cardiology patient should continue lifetime aspirin 81 mg p.o. daily and Plavix 75 mg p.o. for 1 year. Continue Coreg and high intensity statin. Patient is status post amiodarone drip for atrial fibrillation with RVR. Continue amiodarone 200 mg p.o. twice daily. SBP trending into the 180s status post cath and we will continue to titrate antihypertensive regimen as needed. Continue home ranolazine for angina. Continue home levothyroxine. TSH and free T4 still not at goal although improved from last studies on file. Outpatient follow-up with PCP for continued management. Patient's underlying anemia appears stable. Patient and patient's son updated on the plan. All questions answered to satisfaction. Please see residents note for additional details and management. Anticipate discharge in the next [address] Riki MD
[2025-10-30] MEDS: ONDANSETRON INJ 2 MG/ML INJ 2 ML 4 MG IVP (16:55)
--- NOTE | 2025-10-30 17:02 | PC.NURSE ---
patient's blood pressure was 188/83. She refused her ordered blood pressure medications because she was nauseous and wanted to rest. She stated she wants to wait 1 to 2 hours to take medications for blood pressure.
[2025-10-30] MEDS: DILTIAZEM 30 MG TABLET 60 MG PO (17:43)
[2025-10-31] VITALS (9 sets, daily range): BP systolic 107–146; BP diastolic 59–78; PULSE 54–71; RESP 14–16; TEMP 36.2–36.8; O2SAT 92–98; BMI 24.2
[2025-10-31] MEDS: LEVOTHYROXINE SODIUM 25 MCG TABLET 50 MCG PO (05:09)
[2025-10-31] MEDS: ACETAMINOPHEN 325 MG TABLET 650 MG PO (05:13)
[2025-10-31 07:39] LABS: Basophils # (Auto) 0.0 Thou/mm3 (0.0-0.2); Basophils % (Auto) 1 % (0-2.5); Eosinophils # (Auto) 0.1 Thou/mm3 (0.0-0.5); Eosinophils % (Auto) 3 % (0-10); Hematocrit 26.8 % (36.0-46.0); Hemoglobin 8.9 g/dL (12.0-16.0); Immature Granulocytes Auto 0.01 Thou/mm3 (0.00-0.00); Lymphocytes # (Auto) 1.1 Thou/mm3 (1.0-4.8); Lymphocytes % (Auto) 28 % (10-50); Mean Corpuscular HGB Conc 33.2 g/dl (31.0-37.0); Mean Corpuscular Hemoglobin 32.1 pg (25.0-35.0); Mean Corpuscular Volume 97 fL (80-100); Monocytes # (Auto) 0.4 Thou/mm3 (0.0-0.8); Monocytes % (Auto) 9 % (0-12); Neutrophils # (Auto) 2.4 Thou/mm3 (1.8-7.7); Neutrophils % (Auto) 59 % (37-80); Nucleated Red Blood Cell # 0.00 Thou/mm3 (0.00-0.00); Nucleated Red Blood Cell % 0 /100 WBC (0); Platelet Count 231 Thou/mm3 (140-440); RDW Standard Deviation 53.2 fL (36.4-46.3); Red Blood Count 2.77 Miln/mm3 (4.00-5.20); White Blood Count 4.0 Thou/mm3 (3.6-11.0)
[2025-10-31 08:19] LABS: Alanine Aminotransferase 9 U/L (10-49); Albumin, Serum 4.2 gm/dL (3.4-4.8); Alkaline Phosphatase 55 U/L (46-116); Anion Gap 9 (7-16); Aspartate Amino Transferase 18 U/L (0-34); BUN/Creatinine Ratio 12 Ratio (12-20); Bilirubin,Total 0.4 mg/dL (0.3-1.2); Blood Urea Nitrogen 15 mg/dL (9-23); Calcium 9.3 mg/dL (8.3-10.6); Calcium (Corrected) 9.3 mg/dL (8.5-10.1); Carbon Dioxide 25.8 mMol/L (20.0-31.0); Chloride 100 mMol/L (98-107); Creatinine (Component) 1.3 mg/dL (0.6-1.3); Estimated Creatinine Clearance 32.5 mL/min (>60); Glucose 81 mg/dL (74-106); Osmolality,Calculated 269 (275-295); Potassium 4.4 mMol/L (3.4-5.1); Sodium 135 mMol/L (136-145); eGFR 44 See Note
[2025-10-31] MEDS: RANOLAZINE 500 MG TABER (NON FORMULARY) PO (08:44)
[2025-10-31] MEDS: CLOPIDOGREL BISULFATE 75 MG TABLET PO (08:45)
[2025-10-31] MEDS: LOSARTAN POTASSIUM 25 MG TABLET PO (08:46)
[2025-10-31] MEDS: SENNA/DOCUSATE SOD 1 TAB TABLET 2 TAB PO (08:46)
[2025-10-31] MEDS: AMIODARONE HCL 200 MG TABLET PO (08:46)
[2025-10-31] MEDS: APIXABAN 2.5 MG TABLET PO (08:47)
[2025-10-31] MEDS: MULTIVITAMINS TABLET 1 TAB PO (08:47)
[2025-10-31] MEDS: ASPIRIN EC 81 MG TABEC PO (08:47)
--- NOTE | 2025-10-31 09:47 | PD.RESPRO ---
Documentation for date of: 10/31/25 Subjective Subjective Interval history: Patient is 70-year-old female with past medical history of coronary artery disease status post 6 stent placement, 2 to proximal LAD, 2 to the proximal and mid RCA in February 2024 at [facility], and another 2 stent placed in [facility] ([facility] in 04/18/2024, history of paroxysmal A-fib, history of essential hypertension, hypothyroidism, arthritis, chronic back pain, presented to [facility] on 10/27/2025 with chief complaints of substernal chest pain that lasted about 30 minutes when she was using the bathroom. Patient stated that pain did not subsided with rest. Was associated with mild shortness of breath, dizziness, palpitation. Patient denied any nausea, vomiting, radiation to the back, neck or arm. Upon arrival to ED the symptoms has resolved. Patient is following , and dose of Eliquis was adjusted from 5 to 2.5 mg BID, patient also takes Plavix. Patient speaks Brent to, patient also requires assistance in her ADLs such as bathing and dressing. Patient also was complaining of constipation, and the symptoms mainly started at the bathroom when she was straining. In 04/18/24: LHC in [facility] Summary/findings: 1. Acute coronary syndrome: NSTEMI-peak troponin of 1.45 LHC showed 2 patent overlapping stents in the proximal LAD and 2 patent overlapping stents in the proximal RCA and severe 90% stenosis OM1 and severe 80 to 90% stenosis of the LCx. Rest of the arteries showed only minimal to mild disease. 2. LVEF is normal at 55 to 60%. LVEDP was slightly elevated at 18 mmHg. 3. Successful complex bifurcation PCI of the ostial and proximal OM1 with 2.5 x 12 mm Synergy with excellent results and JOSE-3 flow 4. Successful complex bifurcation PCI of the proximal LCx at the bifurcation of the OM1 with 2.75 x 16 mm Synergy WILLIAM stent with excellent results and JOSE-3 flow. Final kissing balloon inflation performed ED Course: -Initial vitals were BP 134/90 and HR 134 with afib with RvR -Labs significant for anemia with Hgb 9.7, initial troponin negative but repeat elevated to 0.109 -EKG showed afib with RvR at a rate of 137 -In the ED, patient was given metoprolol tartrate 5 mg IV x1 and converted to normal sinus rhythm, and aspirin 81 mg -Patient was admitted for NSTEMI type 1 versus type 2 Past medical history as above Past surgical history appendectomy as well as 6 ectomy and recent PCI at [facility] 3 weeks ago with 2 out of 4 stents, 2 stent on ostial and proximal OM1 , Proximal LCX at the bifurcation of the OM1. Medication, amiodarone, Eliquis 2.5 mg twice daily, atorvastatin 80 mg, Plavix 75 mg, levothyroxine 50 mg, metoprolol tartrate 25 mg every 12 hours, ranolazine 500 mg every 12 hours. Social history: Lives with the son here in [place] from [facility]. Patient denies any Smoking alcohol or drug abuse. Baseline patient is ADL and IADL independent except for chronic back pain and osteoarthritis as per the son who is at the bedside. Allergies: NKDA Travel history: None recently Family history significant for heart disease in the family and hypertension 10/28/25: Patient seen and examined at bedside. No acute overnight events. Labs and vitals are stable, patient continued to be on heparin and amiodarone drip, after completion the amiodarone GGT can be switched to amiodarone 200 mg twice daily, continue metoprolol 25 mg daily, continue current regimen with Plavix, atorvastatin. If patient continue to have any chest pain, tightness, we will consider LHC for that reason we will recommend to continue heparin drip for now. 10/29/2025: Patient was seen and examined at bedside no acute overnight events. Telemetry looks normal with no A-fib episodes. Labs and vitals are stable. Started on amiodarone 200 mg twice daily. She endorses she had a bowel movement yesterday and endorses feeling weak. Hemoglobin dropped from 9.7-8.9, magnesium 1.8. She denies any hematemesis, black/tarry stools. 10/30/2025: Patient received left heart cardiac catheterization. LHC showed 2 patent overlapping stents in the proximal LAD and 2 patent overlapping stents in the proximal RCA, patent stent in ostial and proximal OM1, patent stent in proximal LCx at the bifurcation of the OM1. Rest of the arteries showed only minimal to mild disease. LVEF is normal at 55 to 60%. LVEDP was slightly elevated at 18 mmHg. Continue Aspirin 81mg po qd, Plavix 75mg po qd for 1 year. Continue coreg 3.125 mg po bid, Lipitor 80mg po qd. No weight lifting more than 5 to 10 lbs for next 1 week. then Follow up with 1-2 weeks once discharge. Currently on, Amiodarone 200mg po bid, Eliquis 2.5 mg bid, Atorvastatin 80mg po hs, Coreg 3.125 mg po bid, Plavix 75 mg po qd, Losartan 25 mg po qd 10/31/2025: Labs reviewed and patient examined at the bedside. Continue current regimen as recommended. Continue Plavix 75mg po qd and Eliquis 2.5mg po bid. No need for Aspirin. Coreg and lipitor. Today, his potassium level was 4.4, and UoP 400ml. Will continue to monitor. Exam Vital Signs Temp Pulse Resp BP Pulse Ox O2 Del Method O2 Flow Rate 97.1 F 66 15 146/68 H 93 L Room Air 3 10/31/25 08:00 10/31/25 08:46 10/31/25 08:00 10/31/25 08:46 10/31/25 08:00 10/31/25 08:00 10/29/25 04:00 Narrative Exam GENERAL: AAOx3 HEENT: Moist mucosa. Eyes open, symmetrical, & clear CARDIO: Rapid regular rhythm Noted. No Murmurs. PULM: No noted coughing/dyspnea CTA B/L, no R/W/R GI: Abdomen soft, nondistended, non Tender. SKIN/MSK/EXT: No wounds/rashes/amputations, no pain on palpation.No Edema. Pedal pulses present B/L NEURO: AAOx3, no focal neuro deficits, able to move all 4 extremities Objective Labs 10/31/25 07:21 10/31/25 07:21 Labs: Laboratory Results - last 24 hr 10/31/25 07:21 WBC 4.0 RBC 2.77 L Hgb 8.9 L Hct 26.8 L MCV 97 MCH 32.1 MCHC 33.2 RDW Std Deviation 53.2 H Plt Count 231 D Neut % (Auto) 59 Lymph % (Auto) 28 [place] % (Auto) 9 Eos % (Auto) 3 Baso % (Auto) 1 Neut # (Auto) 2.4 Lymph # (Auto) 1.1 [place] # (Auto) 0.4 Eos # (Auto) 0.1 Baso # (Auto) 0.0 Immature Gran # (Auto) 0.01 H Absolute Nucleated RBC 0.00 Immature Gran % 0 Nucleated RBC % 0 Sodium 135 L Potassium 4.4 Chloride 100 Carbon Dioxide 25.8 Anion Gap 9 BUN 15 Creatinine 1.3 Estim Creat Clear Calc 32.5 L eGFR 44 L BUN/Creatinine Ratio 12 Glucose 81 Calculated Osmolality 269 L Calcium 9.3 Corrected Calcium 9.3 Total Bilirubin 0.4 AST 18 ALT 9 L Alkaline Phosphatase 55 Albumin 4.2 Quality Measures Quality Measures VTE therapy Advance care planning discussed with:: patient and other Assessment & Plan Assessment Current Active Medications: Generic Name Dose Route Start Last Admin Trade Name Freq PRN Reason Stop Dose Admin Acetaminophen 650 mg 10/27/25 18:21 10/31/25 05:13 Acetaminophen 325 Mg Tablet PO 11/26/25 18:20 650 mg Q6H PRN Administration Fever >100.4 or Pain 1-3 Amiodarone HCl 200 mg 10/29/25 21:00 10/31/25 08:46 Amiodarone Hcl 200 Mg Tablet PO 11/28/25 20:59 200 mg BID TIFFANY Administration Apixaban 2.5 mg 10/30/25 21:00 10/31/25 08:47 Apixaban 2.5 Mg Tablet PO 11/29/25 20:59 2.5 mg BID TIFFANY Administration Aspirin 81 mg 10/31/25 09:00 10/31/25 08:47 Aspirin Ec 81 Mg Tabec PO 11/30/25 08:59 81 mg QDAY TIFFANY Administration Atorvastatin Calcium 80 mg 10/27/25 21:00 10/30/25 21:21 Atorvastatin Calcium 20 Mg Tablet PO 11/26/25 20:59 Not Given HS TIFFANY Carvedilol 3.125 mg 10/30/25 17:30 10/31/25 08:45 Carvedilol 3.125 Mg Tablet PO 11/29/25 17:29 3.125 mg BIDWM TIFFANY Administration Clopidogrel Bisulfate 75 mg 10/28/25 09:00 10/31/25 08:45 Clopidogrel Bisulfate 75 Mg Tablet PO 11/27/25 08:59 75 mg QDAY TIFFANY Administration Levothyroxine Sodium 50 mcg 10/28/25 06:45 10/31/25 05:09 Levothyroxine Sodium 25 Mcg Tablet PO 11/27/25 06:44 50 mcg ACBR TIFFANY Administration Losartan Potassium 25 mg 10/28/25 09:00 10/31/25 08:46 Losartan Potassium 25 Mg Tablet PO 11/27/25 08:59 25 mg QDAY TIFFANY Administration Magnesium Hydroxide 30 ml 10/28/25 06:45 Milk Of Magnesia Susp 30 Ml Udc PO 11/27/25 06:44 QDAY PRN CONSTIPATION Protocol Multivitamins 1 tab 10/29/25 15:45 10/31/25 08:47 Multivitamins Tablet PO 11/28/25 15:44 1 tab QDAY TIFFANY Administration Ondansetron HCl 4 mg 10/27/25 18:21 10/30/25 16:55 Ondansetron Inj 2 Mg/Ml Inj 2 Ml IVP 11/26/25 18:20 4 mg Q6H PRN Administration NAUSEA OR VOMITING Protocol Ranolazine 500 mg 10/28/25 09:00 10/31/25 08:44 Ranolazine 500 Mg Vivian (Non Formulary) PO 11/27/25 08:59 500 mg Q12HR TIFFANY Administration Sennosides 2 tab 10/28/25 21:00 10/31/25 08:46 Senna/Docusate Sod 1 Tab Tablet PO 11/27/25 20:59 2 tab BID TIFFANY Administration Protocol Plan Patient is 70-year-old female with past medical history of coronary artery disease status post 6 stent placement, 2 to proximal LAD, 2 to the proximal and mid RCA in February 2024 at [facility], and another 2 stent placed in [facility] in 04/18/2024, history of paroxysmal A-fib, history of essential hypertension, hypothyroidism, arthritis, chronic back pain was admitted for non-STEMI demand ischemia as well as A-fib with RVR treatment and management. Cardiology was consulted for further evaluation. 1. Non-STEMI/elevated troponin type I less likely, versus type II demand ischemia 2. Chronic A-fib with RVR on Eliquis 3. History of coronary artery disease status post 6 stent placement on Plavix 4. Essential hypertension 5. Hyperlipidemia 6. Hypothyroidism 7. Osteoarthritis. 8. Chronic back pain Patient presented to ED with substernal chest pain lasting about 30 minutes occurring while using the bathroom, pain did not subside with rest and was associated with shortness of breath, dizziness, palpitation. Patient has a history of non-STEMI, her coronary angiogram showed multivessel disease, status post multiple stent placement, left ventricular ejection fraction was normal 55 to 60%, Elevated troponin which currently downtrended, EKG showed A-fib with RVR at rate of 137 which successfully treated with metoprolol IV push, and patient converted to normal sinus rhythm. Given the elevated troponin, clinical presentation is most consistent with non-STEMI type II demand ischemia in the setting of A-fib with RVR, constipation(straining during bowel movement). Patient was placed on heparin drip On amiodarone drip In 04/18/24: C in [facility] Summary/findings: 1. Acute coronary syndrome: NSTEMI-peak troponin of 1.45 C showed 2 patent overlapping stents in the proximal LAD and 2 patent overlapping stents in the proximal RCA and severe 90% stenosis OM1 and severe 80 to 90% stenosis of the LCx. Rest of the arteries showed only minimal to mild disease. 2. LVEF is normal at 55 to 60%. LVEDP was slightly elevated at 18 mmHg. 3. Successful complex bifurcation PCI of the ostial and proximal OM1 with 2.5 x 12 mm Synergy with excellent results and JOSE-3 flow 4. Successful complex bifurcation PCI of the proximal LCx at the bifurcation of the OM1 with 2.75 x 16 mm Synergy WILLIAM stent with excellent results and JOSE-3 flow. Final kissing balloon inflation performed Recommendation Recommendation - [facility] on 10/30/2025 showed all 6 stents were patent. 2 patent overlapping stents in the proximal LAD and 2 patent overlapping stents in the proximal RCA, patent stent in ostial and proximal OM1, patent stent in proximal LCx at the bifurcation of the OM1. Rest of the arteries showed only minimal to mild disease. -LVEF is normal at 55 to 60%. LVEDP was slightly elevated at 18 mmHg. -Continue Aspirin 81mg po qd, Plavix 75mg po qd for 1 year. -Continue coreg 3.125 mg po bid, Lipitor 80mg po qd. -No weight lifting more than 5 to 10 lbs for next 1 week. then Follow up with 1-2 weeks once discharge. -Currently on, Amiodarone 200mg po bid, Eliquis 2.5 mg bid, Atorvastatin 80mg po hs, Coreg 3.125 mg po bid, Plavix 75 mg po qd, Losartan 25 mg po qd Monitor blood pressure regularly, especially given the patient history of hypertension and current medication. Can continue ranolazine. Ordered multivitamin tablet at patient is feeling weak. Assessment and plan discussed with my attending physician Dr. Joe Paula (PGY-1) - Internal medicine resident Attending Provider Attestation/Addendum I have personally seen and examined the patient separately on the above date of service and discussed the plan of care with the resident. I reviewed the resident Dr. Enrico Paula consultation progress note and agree with the resident findings and plan in the note above and have also edited the documentation to reflect my findings and plan. Jorge Luis Diaz M.D. Interventional Cardiology
--- NOTE | 2025-10-31 11:51 | PC.SS ---
Update: Plan is for the patient to d/c home today.
--- NOTE | 2025-10-31 12:08 | ESDS_ITS ---
<Statement entered by Jessika Luna MD - 11/13/25 09:16> I reviewed above note and agree with findings and plans. I have also personally examined the patient with medicine team and went over assessment and plan with medical team including network intern and resident physician. Planned Discharge Date 10/31/25 DS: Providers Provider Date of admission: 10/27/25 18:21 Primary care physician: THA King Admitting Provider: Curly Lyn MD Attending Provider on Admission: Jessika Luna MD Consults: 10/27/25 21:47 Consult to Cardiology Routine Comment: NSTEMI Consulting Provider: Jorge Luis Diaz Attending Provider on DC: Jessika Luna MD Discharging Provider: Ajay Queen MD DS: Diagnosis Problem List Completed Was Problem List Reviewed/Reconciled?: Yes Hospital Course Hospital Course Hospital course: The patient is a 70-year-old female with a history of severe multivessel CAD s/p 6 stents, paroxysmal AFib, hypothyroidism, and CKD who presented to the ED on 10/27/2025 with 30 minutes of substernal chest pain. She was found to be in AFib with rapid ventricular response (RVR) and was treated with IV metoprolol, converting to normal sinus rhythm (NSR). Troponin levels were initially low but later peaked at 0.109, and she was started on a heparin gtt and amiodarone for rhythm control. Given her history of CAD, extensive prior stenting, and the clinical picture of NSTEMI, cardiology was consulted and recommended urgent left heart catheterization. The patient was stable overnight, with no recurrence of chest pain or arrhythmias, and electrolytes were optimized. On 10/30/2025, the patient underwent left heart catheterization via the right radial artery. The procedure showed patent stents in the LAD, RCA, and LCx, with PCI performed to the OM1 and LCx, resulting in JOSE-3 flow. There were no complications during the procedure, and the patient was placed on dual antiplatelet therapy (Plavix and aspirin). Post-procedure, the patient remained stable, with no chest pain or arrhythmias. cardiology recommended for patient to be placed on Eliquis and Plavix and to stop aspirin. There were no complications at the access site, and she was monitored on telemetry for the remainder of the day. The patient requested to stay an additional night for observation. Diagnoses during admission: #NSTEMI, type 1 versus type 2 #History of CAD with multivessel disease s/p 6 stents #Paroxysmal AFib #Essential Hypertension #Hypothyroidism #Anemia of chronic disease, stable #Constipation, resolved Discharge Instructions: -Continue Plavix 75 mg daily -Continue Eliquis 2.5 mg twice daily -Continue Atorvastatin 80 mg daily -Start Coreg (Carvedilol) 3.125 mg twice daily -Stop home med Metoprolol. -Continue all home meds as prescribed -Activity: No lifting >5?10 pounds for 7 days post-cath -Follow-up with Cardiology in 1?2 weeks -Follow up with PCP within 1/2 weeks -Diet: Cardiac diet as tolerated, encourage healthy eating -Wound Care: Keep right radial access site clean and dry, monitor for signs of infection (redness, swelling) -Return to ED if signs of worsening chest pain, palpitations, or access-site bleeding -Rest: Avoid excessive physical exertion; gradual increase in activity as tolerated ----- Plan discussed with attending physician Dr. Jeremy Queen MD PGY-1 Internal Medicine Time Spent with Patient Time attestation: Total time spent providing and/or coordinating discharge services: Time spent: Greater than 30 minutes Exam Vital Signs Temp Pulse Resp BP Pulse Ox O2 Del Method O2 Flow Rate 97.1 F 66 15 146/68 H 93 L Room Air 3 10/31/25 08:00 10/31/25 08:46 10/31/25 08:00 10/31/25 08:46 10/31/25 08:00 10/31/25 08:00 10/29/25 04:00 Narrative Exam General: Awake. HEENT: Normocephalic, atraumatic, mucous membranes moist. Heart: Regular rate and rhythm, no murmurs. Lungs: Clear to auscultation with no wheezing or crackles. Abdomen: Soft, nondistended, nontender, positive bowel sounds. ?No guarding or rebound tenderness. Neurologic: Alert and oriented x3, no gross neurological deficit, and patient able to move all 4 extremities. Extremities: No edema. Skin: No rash or ecchymoses. Discharge Plan Plan Patient Disposition: HOME (Self Care) Care Plan Goals: Discharge Instructions: -Continue Plavix 75 mg daily -Continue Eliquis 2.5 mg twice daily -Continue Atorvastatin 80 mg daily -Start Coreg (Carvedilol) 3.125 mg twice daily -Stop home med Metoprolol. -Continue all home meds as prescribed -Activity: No lifting >5?10 pounds for 7 days post-cath -Follow-up with Cardiology in 1?2 weeks -Follow up with PCP within 1/2 weeks -Diet: Cardiac diet as tolerated, encourage healthy eating -Wound Care: Keep right radial access site clean and dry, monitor for signs of infection (redness, swelling) -Return to ED if signs of worsening chest pain, palpitations, or access-site bleeding -Rest: Avoid excessive physical exertion; gradual increase in activity as t olerated Prescriptions/Referrals Prescriptions/Med Rec: New carvedilol [Coreg] 3.125 mg tablet 3.125 mg PO BID Qty: 60 0RF Rx Instructions: must administer with a meal/food Eliquis 2.5 mg tablet 2.5 mg PO BID Qty: 60 0RF atorvastatin [Lipitor] 80 mg tablet 80 mg PO QPM Qty: 30 0RF ranolazine 500 mg tablet extended release 12 hr 500 mg PO Q12H Qty: 60 0RF Continued clopidogrel 75 mg Tablet 75 mg PO QDAY Qty: 30 0RF amiodarone 200 mg tablet 200 mg PO BID Qty: 60 0RF multivitamin Tablet 1 tab PO DAILY Patient Comments: TAKE ONE TABLET BY MOUTH EVERY DAY Eliquis 2.5 mg tablet 2.5 mg PO Q12H levothyroxine 50 mcg tablet 50 mcg PO .am ranolazine 500 mg tablet extended release 12 hr 500 mg PO Q12H atorvastatin 80 mg tablet 80 mg PO HS Patient Comments: TAKE ONE TABLET BY MOUTH AT BEDTIME FOR CHOLESTEROL losartan 25 mg tablet 25 mg PO DAILY Patient Comments: TAKE ONE TABLET BY MOUTH EVERY DAY FOR BLOOD PRESSURE Discontinued losartan 50 mg tablet 50 mg PO QDAY Qty: 30 0RF apixaban 5 mg tablet 5 mg PO BID Qty: 60 0RF metoprolol tartrate 25 mg tablet 25 mg PO Q12H Referrals: Laura Foss FNP [Primary Care Provider] Patient/Caregiver Discharge Instructions Education Materials: AFL/Afib, Heart Failure Signs of Flare-Up, Recognizing a Heart Attack or Angina, Your Recovery Plan, Your Heart Risk Action Plan Print Language: Spanish Stand Alone Forms: [employer] Info., Patient Portal Info Letter Discharge Order Discharge Orders: Discharge (Routine); Ordered 10/31/25 Ordered By: Brian Song Quality Discharge Quality Measures VTE prophylaxis
[2025-10-31 13:02] LABS: Albumin/Globulin Ratio 1.5 (1.2-2.2); Globulin 2.8 gm/dL (2.3-3.5); Total Protein 7.0 gm/dL (5.7-8.2)
== END 2025-10-31 14:52 | disposition home or self-care (01) | DRG 281 ==
LOC: SERX 17:57 → SERHOLD 18:42 → S2NX 10-28 00:17
PROVIDERS: Internal Medicine Cardiovascular Disease; Nurse Practitioner Family; Student in an Organized Health Care Education/Training Program; Admitting Provider Student in an Organized Health Care Education/Training Program; Emergency Provider Emergency Medicine; PCP Student in an Organized Health Care Education/Training Program; Visit Provider Internal Medicine
PROC: 4A023N7 Measurement of Cardiac Sampling and Pressure, Left Heart, Percutaneous Approach (ICD-10-PCS; principal; 2025-10-30 08:30)
DX: I21.4 Non-ST elevation (NSTEMI) myocardial infarction (principal); I48.20 Chronic atrial fibrillation, unspecified; I48.0 Paroxysmal atrial fibrillation; I25.10 Atherosclerotic heart disease of native coronary artery without angina pectoris; E03.9 Hypothyroidism, unspecified; E78.5 Hyperlipidemia, unspecified; D63.8 Anemia in other chronic diseases classified elsewhere; K59.00 Constipation, unspecified; Z79.02 Long term (current) use of antithrombotics/antiplatelets; Z95.5 Presence of coronary angioplasty implant and graft; I25.2 Old myocardial infarction; I12.9 Hypertensive chronic kidney disease with stage 1 through stage 4 chronic kidney disease, or unspecified chronic kidney disease; N18.9 Chronic kidney disease, unspecified; D63.1 Anemia in chronic kidney disease; G89.29 Other chronic pain; Z79.01 Long term (current) use of anticoagulants; Z79.82 Long term (current) use of aspirin; Z79.890 Hormone replacement therapy; Z79.899 Other long term (current) drug therapy; Z90.49 Acquired absence of other specified parts of digestive tract
CPT/HCPCS: 36415; 71045; 80048; 80053; 80061; 81001; 83036; 83735; 83880; 84100; 84439; 84443; 84484; 85025; 85610; 85730; 86850; 86900; 86901; 93005; 93306; 96374; 96375; 99152; 99284; A4649; C1769; C1887; C1894; J0153; J0168; J0282; J0283; J0461; J1643; J1644; J2250; J2312; J2371; J2405; J3010; J3490; Q9967; A9270; J2305

== ENCOUNTER 2025-11-23 03:40 | Emergency (ER) | payer MEDICARE, MEDICAID, SELFPAY ==
[2025-11-23] VITALS (8 sets, daily range): BP systolic 129–143; BP diastolic 64–108; PULSE 65–132; RESP 16–22; TEMP 36.3–36.7; O2SAT 97–98; BMI 23.4
--- NOTE | 2025-11-23 03:50 | EKG_ITS ---
[facility] Test Date: 2025-11-23 Pat Name: TAYLOR JACINTO Department: Room: - Gender: Female Editor Greeting Card: : [id number] Requested By: Jose Jacques Order Number: [id number] Reading MD: Jose Jacques Measurements Intervals [place] Rate: 123 P: OK: QRS: 29 QRSD: 85 T: 210 QT: 263 QTc: 377 Interpretive Statements ATRIAL FIBRILLATION WITH RAPID VENTRICULAR RESPONSE ST DEVIATION AND MODERATE T-WAVE ABNORMALITY, CONSIDER LATERAL ISCHEMIA [-0.1+ mV T-WAVE IN I/aVL/V5/V6] Compared to ECG 10/27/2025 13:23:11 No significant changes /store/S0/[id number].pdf
--- NOTE | 2025-11-23 03:56 | XR_ITS ---
EXAMINATION: AP chest single view TECHNIQUE: AP portable semiupright chest single view Date and time: November 23, 2025, 0451 hours, comparison October 27, 2025 INDICATION: Shortness of breath today. FINDINGS: Mild heart failure Mild enlargement cardiac contour Prominent vascular congestion with perihilar edema Prominent osteopenia IMPRESSION: Mild heart failure
--- NOTE | 2025-11-23 04:00 | PD.EDARRY ---
ED Arrhythmia Palp. RME/HPI General Chief Complaint: Arrhythmia/Palpitations Stated Complaint: PALPITATIONS Time Seen by Provider: 11/23/25 04:01 Arrival date/time: 11/23/25 03:40 RME / HPI RME / HPI narrative: See MDM for Dr. Combs's HPI Documentation. Related Data Home Medications ?Medication ?Instructions ?Recorded ?Confirmed apixaban 2.5 mg tablet (Eliquis) 2.5 mg PO Q12H 10/28/25 10/28/25 atorvastatin 80 mg tablet 80 mg PO HS 10/28/25 10/28/25 levothyroxine 50 mcg tablet 50 mcg PO .am 10/28/25 10/28/25 losartan 25 mg tablet 25 mg PO DAILY 10/28/25 10/28/25 multivitamin 1 tab PO DAILY 10/28/25 10/28/25 ranolazine 500 mg tablet,extended 500 mg PO Q12H 10/28/25 10/28/25 release,12 hr Previous Rx's ?Medication ?Instructions ?Recorded clopidogrel 75 mg tablet 75 mg PO QDAY #30 tabs 04/22/24 amiodarone 200 mg tablet 200 mg PO BID #60 tabs 04/23/24 carvedilol 3.125 mg tablet (Coreg) 3.125 mg PO BID #60 tabs 10/30/25 apixaban 2.5 mg tablet (Eliquis) 2.5 mg PO BID #60 tabs 10/31/25 atorvastatin 80 mg tablet (Lipitor) 80 mg PO QPM #30 tabs 10/31/25 ranolazine 500 mg tablet,extended 500 mg PO Q12H #60 tabs 10/31/25 release,12 hr Allergies Allergy/AdvReac Type Severity Reaction Status Date / Time No Known Allergies Allergy Unverified 03/08/22 12:49 Review of Systems Review of Systems Systems Reviewed: All systems reviewed, normal except as documented Past Medical History Past Medical History CARDIAC: Positive Myocardial Infarction, Atrial Fibrillation and Hypertension MUSCULOSKELETAL: Positive Arthritis and Osteoporosis Surgical History SURGICAL: Positive Coronary Stent (x6), Abdominal Surgery and Hysterectomy ED Exam Narrative Physical exam: See [facility] for Dr. Comsb's Physical Exam Documentation. Course Quality Measures none Orders Category Date Time Status Bedside COVID-19 Antigen Test NOW Care 11/23/25 03:54 Active Bedside Influenza A&B Antigen Test NOW Care 11/23/25 03:54 Active EKG (ED ONLY) *Do not use* NOW Care 11/23/25 03:50 Active Saline [Insert IV] NOW Care 11/23/25 03:54 Active Straight [In and Out Catheter] X1 Care 11/23/25 03:54 Active EKG (ED Only) Stat Exams 11/23/25 03:50 Ordered XR chest 1V portable Stat Exams 11/23/25 03:56 Ordered BNP [B-Type Natriuretic Peptide] Stat Lab 11/23/25 03:56 Ordered Bilirubin,Direct Stat Lab 11/23/25 03:56 Ordered Blood Culture (Lab) Stat Lab 11/23/25 03:56 Ordered CBC Stat Lab 11/23/25 03:56 Ordered CMP [Comprehensive Metabolic Panel] Stat Lab 11/23/25 03:56 Ordered CRP [C-Reactive Protein] Stat Lab 11/23/25 03:56 Ordered D-Dimer Stat Lab 11/23/25 03:56 Ordered ESR [Sed Rate (ESR)] Stat Lab 11/23/25 03:56 Ordered Hemoglobin A1C [Glycohemoglobin w (eAG)] Stat Lab 11/23/25 03:56 Ordered Lactate (Lactic Acid) Stat Lab 11/23/25 03:56 Ordered Magnesium Stat Lab 11/23/25 03:56 Ordered PT [Prothrombin Time with INR] Stat Lab 11/23/25 03:56 Ordered PTT [Partial Thromboplastin Time] Stat Lab 11/23/25 03:56 Ordered Procalcitonin Stat Lab 11/23/25 03:56 Ordered TSH [Thyroid Stimulating Hormone] Stat Lab 11/23/25 03:56 Ordered Troponin I Stat Lab 11/23/25 03:56 Ordered UA, C/S IF [Urinalysis, C/S if Indicated] Stat Lab 11/23/25 03:56 Ordered Diltiazem Inj [Cardizem Inj] Med 11/23/25 03:54 Once 20 mg IV X1 ONE Vital Signs Vital signs: Vital Signs Temperature 97.3 F 11/23/25 03:50 Pulse Rate 132 H 11/23/25 03:50 Respiratory Rate 22 H 11/23/25 03:50 Blood Pressure 143/89 H 11/23/25 03:50 Pulse Oximetry (%) 97 11/23/25 03:50 Oxygen Delivery Method Room Air 11/23/25 03:50 Arrhythmia/Palpitations MDM Narrative MDM Narrative:: This section includes all my notes and documentations, including HPI, PE, and ED course. Jose Combs MD HPI: 70 y/o female with CAD and HTN and Atrial Fibrillation here with a couple hour history of palpitations. With chest tightness and shortness of breath. No recent illness with cough or fever. No vomiting or diarrhea. No other complaints. ROS: All negative except as documented in HPI. Physical Exam: General: Alert and oriented. No acute distress when remaining still. Eyes: Conjunctivae and lids clear. ENT: No nasal congestion. Neck: Supple. No JVD. Heart: Irregularly irregular (123 bpm). Lungs: No respiratory distress. Good air movement. No severe rhonchi, wheezing, rales. Abdomen: Soft and nontender. Skin: Warm and dry. Neuro: Alert and oriented X 3. I reviewed EMS notes. My interpretation of the EKG is: Atrial fibrillation with RVR (123 bpm) with nonspecific ST-T changes. Cardizem 20 mg IV given. RVR resolved. Oral Cardizem 60 mg given. Diagnostic tests pending. At 6 AM on 11/23/2025, the care of the patient was transferred to Dr. Munguia. Jose Combs MD Patient data External records reviewed:: [facility] previous records (Reviewed prior ED records from 07/08/24. Patient was seen for Acute UTI.) and EMS form Clinical information provided by:: patient and EMS Social determinants that could affect healthcare access:: none Patient has the following chronic illnesses:: Myocardial Infarction, Atrial Fibrillation, Hypertension, Arthritis, Osteoporosis How is presenting disease/condition affected by chronic disease/condition?: exacerbated by Evaluation data The following diagnostics were reviewed and interpreted by me:: EKG tracing(s) (My interpretation of the EKG is: Atrial fibrillation with RVR (123 bpm) with nonspecific ST-T changes. Jose Combs MD) Lab and/or radiology exams considered but not ordered:: None Interpretation Summary: Diagnostic tests are pending. Medications / Prescriptions Medications or Prescriptions considered but not ordered:: None Medication administrations:: Medication Administration History Diltiazem HCl (Diltiazem Inj 5 Mg/Ml Vial 5 Ml) 20 mg IV X1 ONE Stop: 11/23/25 03:55 Consultations Consultation(s) initiated? (list below): No Diagnosis Differential diagnosis arrhythmia/palpitations: palpitations, anxiety, sinus tachycardia, artial fibrillation, artial flutter, ventricular premature beats, supraventricular tachycardia and ventricular tachycardia Most likely diagnosis given after review of the tests above:: Complete diagnostic tests are pending. Admission Indicated Admission indicated?: not indicated Explain why admission is indicated or not indicated:: Complete diagnostic tests are pending. Admission Request Was there a request for admission?: No Disposition Plan Disposition Plan: other (specify) (At 6 AM on 11/23/2025, the care of the patient was transferred to Dr. Munguia.) Discharge Plan Prescriptions/Referrals Prescriptions/Med Rec: No Action clopidogrel 75 mg Tablet 75 mg PO QDAY Qty: 30 0RF amiodarone 200 mg tablet 200 mg PO BID Qty: 60 0RF multivitamin Tablet 1 tab PO DAILY Patient Comments: TAKE ONE TABLET BY MOUTH EVERY DAY Eliquis 2.5 mg tablet 2.5 mg PO Q12H levothyroxine 50 mcg tablet 50 mcg PO .am ranolazine 500 mg tablet extended release 12 hr 500 mg PO Q12H atorvastatin 80 mg tablet 80 mg PO HS Patient Comments: TAKE ONE TABLET BY MOUTH AT BEDTIME FOR CHOLESTEROL losartan 25 mg tablet 25 mg PO DAILY Patient Comments: TAKE ONE TABLET BY MOUTH EVERY DAY FOR BLOOD PRESSURE carvedilol [Coreg] 3.125 mg tablet 3.125 mg PO BID Qty: 60 0RF Rx Instructions: must administer with a meal/food Eliquis 2.5 mg tablet 2.5 mg PO BID Qty: 60 0RF atorvastatin [Lipitor] 80 mg tablet 80 mg PO QPM Qty: 30 0RF ranolazine 500 mg tablet extended release 12 hr 500 mg PO Q12H Qty: 60 0RF Problem List Clinical Impression: Atrial fibrillation with RVR Patient/Caregiver Discharge Instructions Print Language: Sami
[2025-11-23] MEDS: DILTIAZEM INJ 5 MG/ML VIAL 5 ML 20 MG IV (04:28)
[2025-11-23] MEDS: DILTIAZEM 30 MG TABLET 60 MG PO (05:11)
[2025-11-23 05:12] LABS: Lactate (Lactic Acid) 1.7 mMol/L (0.4-2.0)
[2025-11-23 05:17] LABS: Basophils # (Auto) 0.1 Thou/mm3 (0.0-0.2); Basophils % (Auto) 1 % (0-2.5); Eosinophils # (Auto) 0.1 Thou/mm3 (0.0-0.5); Eosinophils % (Auto) 2 % (0-10); Hematocrit 30.5 % (36.0-46.0); Hemoglobin 10.1 g/dL (12.0-16.0); Immature Granulocytes Auto 0.01 Thou/mm3 (0.00-0.00); Lymphocytes # (Auto) 2.2 Thou/mm3 (1.0-4.8); Lymphocytes % (Auto) 39 % (10-50); Mean Corpuscular HGB Conc 33.1 g/dl (31.0-37.0); Mean Corpuscular Hemoglobin 32.4 pg (25.0-35.0); Mean Corpuscular Volume 98 fL (80-100); Monocytes # (Auto) 0.4 Thou/mm3 (0.0-0.8); Monocytes % (Auto) 7 % (0-12); Neutrophils # (Auto) 2.8 Thou/mm3 (1.8-7.7); Neutrophils % (Auto) 51 % (37-80); Nucleated Red Blood Cell # 0.00 Thou/mm3 (0.00-0.00); Nucleated Red Blood Cell % 0 /100 WBC (0); Platelet Count 271 Thou/mm3 (140-440); RDW Standard Deviation 53.4 fL (36.4-46.3); Red Blood Count 3.12 Miln/mm3 (4.00-5.20); White Blood Count 5.5 Thou/mm3 (3.6-11.0)
[2025-11-23 05:24] LABS: Sed Rate (ESR) 41 mm/hr (0-30)
[2025-11-23 05:37] LABS: D-Dimer < 250 ng/mL (<600); Glucose Estimated Average 103 mg/dL (80-131); Hemoglobin A1C 5.2 % Hgb (4.8-6.0)
[2025-11-23 05:48] LABS: B-Type Natriuretic Peptide 268 pg/mL (0-100)
[2025-11-23 06:10] LABS: Alanine Aminotransferase 9 U/L (10-49); Albumin, Serum 4.6 gm/dL (3.4-4.8); Albumin/Globulin Ratio 1.6 (1.2-2.2); Alkaline Phosphatase 61 U/L (46-116); Anion Gap 13 (7-16); Aspartate Amino Transferase 24 U/L (0-34); BUN/Creatinine Ratio 13 Ratio (12-20); Bilirubin,Direct 0.1 mg/dL (0.0-0.3); Bilirubin,Total 0.2 mg/dL (0.3-1.2); Blood Urea Nitrogen 19 mg/dL (9-23); C-Reactive Protein < 0.5 mg/dL (0.0-0.9); Calcium 9.4 mg/dL (8.3-10.6); Calcium (Corrected) 9.4 mg/dL (8.5-10.1); Carbon Dioxide 23.1 mMol/L (20.0-31.0); Chloride 102 mMol/L (98-107); Creatinine (Component) 1.5 mg/dL (0.6-1.3); Estimated Creatinine Clearance 24.4 mL/min (>60); Globulin 2.9 gm/dL (2.3-3.5); Glucose 92 mg/dL (74-106); Magnesium 1.9 mg/dL (1.6-2.6); Osmolality,Calculated 277 (275-295); Potassium 4.6 mMol/L (3.4-5.1); Procalcitonin < 0.04 ng/ml (0.0-0.49); Sodium 138 mMol/L (136-145); Thyroid Stimulating Hormone 51.12 uIU/mL (0.55-4.78); Total Protein 7.5 gm/dL (5.7-8.2); Troponin I < 0.020 ng/mL (0.0-0.045); eGFR 37 See Note
--- NOTE | 2025-11-23 06:10 | PD.EDADDENDU ---
Emergency Room Addendum Addendum Narrative: Care assumed from . Past medical, surgical, social and family history reviewed. Vitals and home medications reviewed. Results and treatment plan discussed. I will assume the care of the patient at this time and will follow the patient. Please refer to the emergency department record for history and examination from initial visit. Patient remained stable while under my care.
[2025-11-23 06:30] LABS: INR 1.0 (0.9-1.3); Partial Thromboplastin Time 27.1 Seconds (22.0-36.0); Prothrombin Time 10.9 Seconds (9.0-12.2)
== END 2025-11-23 12:58 | disposition home or self-care (01) ==
PROVIDERS: Emergency Medicine; Emergency Provider Family Medicine; PCP Internal Medicine Cardiovascular Disease
DX: I48.91 Unspecified atrial fibrillation (principal); I25.10 Atherosclerotic heart disease of native coronary artery without angina pectoris; I10 Essential (primary) hypertension; Z79.01 Long term (current) use of anticoagulants
CPT/HCPCS: 36415; 71045; 80053; 81001; 82248; 83036; 83605; 83735; 83880; 84145; 84443; 84484; 85025; 85379; 85610; 85652; 85730; 86140; 87040; 87502; 87635; 93005; 99283; J3490; A9270